=== PATIENT | male | born 1940 | race Native Hawaiian/Other Pacific Islander ===

== ENCOUNTER 2018-01-18 10:19 | Observation (INO) | payer OTHER ==
[2018-01-18 10:19] VITALS: BMI 25.4
[~2018-01-18 10:19] MED LIST: EPOETIN ALFA 4,000 UNIT/ML ML Dialysis SC SCH
[2018-01-18 12:13] LABS: BASO # 0.1 K/uL (0.0-0.2); EOS # 0.6 K/uL (0.0-0.7); HEMOGLOBIN 10.7 g/dL (12.0-18.0); MEAN CORPUSCULAR HGB CONC 34.8 g/dL (33.0-37.0); MONO # 0.7 K/uL (0.0-0.8); WHITE BLOOD COUNT 7.2 K/uL (4.8-10.8)
[2018-01-18 12:23] LABS: BASO % 1.5 % (0.0-2.0); EOS % 7.7 % (0.0-4.0); LYMPH # 1.8 K/uL (1.0-4.3); MEAN CELL VOLUME 94.3 fL (80.0-94.0); MEAN CORPUSCULAR HEMOGLOBIN 32.8 pg (27.0-31.0); MEAN PLATELET VOLUME 8.9 fL (7.2-11.7); MONO % 9.9 % (0.0-10.0); NEUT # 4.1 K/uL (1.8-7.0); NEUT % 55.9 % (50.0-75.0); NRBC % 0.1 % (0.0-2.0); RBC 3.27 Mil/uL (4.40-5.90); RED CELL DISTRIBUTION WIDTH 15.9 % (11.5-14.5)
[2018-01-18 12:24] LABS: PROTHROMBIN TIME 10.8 SECONDS (9.7-12.2)
--- NOTE | 2018-01-18 12:33 | C.PDOC ---
History Of Present Illness 77 year old male, whose PMHx includes CHF and ESRD, presents to the ED for evaluation of shortness of breath and chest pain which developed since last night. Patient was due for dialysis today but was unable to attend secondary to symptoms. Patient denies fever, chills, nausea, and vomiting at this time. Time Seen by Provider: 01/18/18 11:30 Chief Complaint (Nursing): Shortness Of Breath History Per: Patient History/Exam Limitations: no limitations Onset/Duration Of Symptoms: Hrs Current Symptoms Are (Timing): Still Present Current Respiratory Medications: See Home Med List Past Medical History Reviewed: Historical Data, Nursing Documentation, Vital Signs Vital Signs: Last Vital Signs Temp 98.4 F 01/19/18 07:17 Pulse 75 01/19/18 08:54 Resp 20 01/19/18 07:17 BP 128/74 01/19/18 07:17 Pulse Ox 98 01/19/18 08:54 - Medical History PMH: No Chronic Diseases Surgical History: No Surg Hx Family History: States: Unknown Family Hx - Social History Hx Alcohol Use: No Hx Substance Use: No - Immunization History Hx Tetanus Toxoid Vaccination: No Hx Influenza Vaccination: No Hx Pneumococcal Vaccination: No Review Of Systems Cardiovascular: Positive for: Chest Pain Respiratory: Positive for: Shortness of Breath Physical Exam - Physical Exam Appears: Non-toxic, No Acute Distress Skin: Normal Color, Warm, Dry Head: Atraumatic, Normacephalic Eye(s): bilateral: Normal Inspection Oral Mucosa: Moist Neck: Supple Chest: Symmetrical, No Deformity, No Tenderness, Other (dialysis catheter to right anterior chest wall. defibrillator to left anterior chest wall ) Cardiovascular: Rhythm Regular, No Murmur Respiratory: Decreased Breath Sounds (bilaterally ), No Rales, No Rhonchi, No Wheezing Gastrointestinal/Abdominal: Normal Exam, Bowel Sounds, Soft Extremity: Normal ROM, Capillary Refill (less than 2 seconds ) Neurological/Psych: Oriented x3, Normal Speech, Normal Cognition ED Course And Treatment - Laboratory Results Result Diagrams: 01/19/18 08:16 01/19/18 08:09 ECG: Interpreted By Me, Viewed By Me ECG Rhythm: Sinus Rhythm Interpretation Of ECG: Normal Sinus Rhythm at rate 71bpm. LVH. Normal intervals. Normal axis. T wave inversions in V4,V5, and V6. Rate From EC O2 Sat by Pulse Oximetry: 100 (on RA) Pulse Ox Interpretation: Normal Medical Decision Making Medical Decision Making: Assessment: CHF Plan: * bloodwork * CXR * EKG * reassess and disposition Progress: Bloodwork, CXR, EKG ordered and reviewed. Case discussed with patient's PMD, Dr. Clark. Patient will be admitted to [facility] for chest pain and fluid overload. Will consult Dr. Salome Moss Disposition - Disposition Disposition: HOSPITALIZED Disposition Time: 14:15 Condition: FAIR - Clinical Impression Clinical Impression: Chest pain - Scribe Statement The provider has reviewed the documentation as recorded by the Scribe (Alda Barrera) Provider Attestation: All medical record entries made by the Scribe were at my direction and personally dictated by me. I have reviewed the chart and agree that the record accurately reflects my personal performance of the history, physical exam, medical decision making, and the department course for this patient. I have also personally directed, reviewed, and agree with the discharge instructions and disposition.
--- NOTE | 2018-01-18 13:03 | RAD ---
PROCEDURE: CHEST RADIOGRAPH, 1 VIEW HISTORY: Chest pain COMPARISON: 01/15/2018. FINDINGS: The right-sided central venous catheter terminates at the cavoatrial junction. LUNGS: The lungs are clear. PLEURA: No pneumothorax or pleural fluid seen. CARDIOVASCULAR: The heart is normal in size. There is unfolding of the aorta. There is stable position of left-sided AICD. OSSEOUS STRUCTURES: No significant abnormalities. VISUALIZED UPPER ABDOMEN: Normal. OTHER FINDINGS: None. IMPRESSION: No acute findings.
[2018-01-18 13:10] LABS: TROPONIN I 0.028 ng/mL (0.00-0.120)
[2018-01-18 13:39] LABS: ALB/GLOB RATIO 0.9 (1.0-2.1); ALBUMIN 4.6 g/dL (3.5-5.0); CALCIUM 9.7 mg/dl (8.6-10.4)
--- NOTE | 2018-01-18 19:29 | CP.PCM.CON ---
History of Present Illness - History of Present Illness History of Present Illness: pt is seen and examined, full consult is dictated #[id number] seen in hd, had a uf about 1.3 lit Past Patient History - Past Social History Smoking Status: Never Smoked - CARDIAC Other/Comment: heart failure - RENAL Hx Dialysis: Yes Type of Dialysis Access: Rt. ashley cathetr Date of Last Dialysis Treatment: 01/16/18 Hx Renal Failure: Yes - PSYCHIATRIC Hx Substance Use: No - SURGICAL HISTORY Hx Surgeries: Yes Other/Comment: Rt. ashley catheter - ANESTHESIA Hx Anesthesia: No Hx Anesthesia Reactions: No Meds Allergies/Adverse Reactions: Allergies Allergy/AdvReac Type Severity Reaction Status Date / Time No Known Allergies Allergy Verified 01/18/18 10:24 - Medications Medications: Current Medications Epoetin Xavier (Procrit) 4,000 unit IV TTS [place] Stop: 01/30/18 10:01 Paricalcitol (Zemplar) 2 mcg IV TTS [facility] Stop: 01/30/18 10:01 Results - Vital Signs Recent Vital Signs: Last Vital Signs Temp 98.1 F 01/18/18 17:55 Pulse 80 01/18/18 17:55 Resp 16 01/18/18 17:55 BP 111/69 01/18/18 18:40 Pulse Ox 100 01/18/18 17:55 - Labs Result Diagrams: 01/18/18 12:05 01/18/18 12:05 Labs: Laboratory Results - last 24 hr 01/18/18 01/18/18 01/18/18 12:05 12:05 12:05 WBC 7.2 RBC 3.27 L Hgb 10.7 L Hct 30.8 L MCV 94.3 H MCH 32.8 H MCHC 34.8 RDW 15.9 H Plt Count 127 L MPV 8.9 Neut % (Auto) 55.9 Lymph % (Auto) 25.0 Chambers % (Auto) 9.9 Eos % (Auto) 7.7 H Baso % (Auto) 1.5 Neut # (Auto) 4.1 Lymph # (Auto) 1.8 Chambers # (Auto) 0.7 Eos # (Auto) 0.6 Baso # (Auto) 0.1 Differential Comment PT 10.8 INR 1.0 APTT 37 H Sodium 143 Potassium 5.0 Chloride 98 Carbon Dioxide 25 Anion Gap 25 H BUN 41 H Creatinine 9.6 H* Est GFR ( Amer) 6 Est GFR (Non-Af Amer) 5 Random Glucose 87 Calcium 9.7 Magnesium 2.7 H Total Bilirubin 0.9 AST 52 ALT 19 L Alkaline Phosphatase 118 Troponin I 0.0280 NT-Pro-B Natriuret Pep 8140 H Total Protein 9.7 H Albumin 4.6 Globulin 5.0 H Albumin/Globulin Ratio 0.9 L
[2018-01-18] MEDS: EPOETIN ALFA 4,000 UNIT/ML ML Dialysis IV SCH (19:34)
[2018-01-18] MEDS: Paricalcitol 2 mcg/ml Inj IV SCH (19:35)
--- NOTE | 2018-01-19 05:24 | CON ---
DATE: 01/18/2018. REQUESTED BY: Dr. Allen Clark. REASON FOR RENAL CONSULTATION: End-stage renal disease for continuation with hemodialysis. HISTORY OF PRESENT ILLNESS: Mr. Britt is a 77 years old elderly very pleasant [place] male with a past medical history significant for hypertension, diabetes, end-stage renal disease, coronary artery disease status post cardiac cath about 4 months ago started on hemodialysis about 4 months ago through right internal jugular Perm-A-Cath. The patient also underwent AICD placement few weeks ago and now the patient was admitted through the emergency room with chief complaints of chest discomfort since yesterday as per the patient through the [facility]. The patient had chest pain before he went to the bed and was on and off and radiating to the left arm. Denies any nausea or vomiting. Denies any fever, cough. Denies any abdominal pain. Denies any dysuria or frequency. Denies any shortness of breath. PAST MEDICAL HISTORY: Significant for longstanding hypertension, diabetes, hyperlipidemia, coronary artery disease, status post cardiac cath about 6 months ago in [facility]. PAST SURGICAL HISTORY: Status post right internal jugular Perm-A-Cath and also left subclavian AICD placement few weeks ago. ALLERGIES: NO KNOWN DRUG ALLERGIES. SOCIAL HISTORY: No smoking. No alcohol or drugs. PERSONAL HISTORY: and he has a very supportive son and . FAMILY HISTORY: Not significant. CURRENT MEDICATIONS: Include as follows; Crestor 10 mg at bedtime, heparin 4000 units IV push in the catheter three times a week, Nephro-Kike 1 tablet daily, PhosLo 667 mg p.o. t.i.d., Plavix 75 mg p.o. daily, Procrit 4000 units IV three times a week, metoprolol 25 mg p.o. daily, Zemplar 2 mcg three times a week. REVIEW OF SYSTEMS: Significant for chest pain radiating to the left arm on and off. All other review of systems are reviewed and are negative. PHYSICAL EXAMINATION: VITAL SIGNS: Blood pressure 102/60, pulse 88, respirations 16, temperature 97.6, saturation 97%. Height 5 feet and weight is about 158 pounds and his post dialysis weight is about 57.9 kg and post dialysis blood pressure 122/55. GENERAL: Mr. Britt is 77 years old elderly male, moderately built, moderately nourished, not in acute distress. HEENT: Pupils normal, reactive to light and accommodation. Conjunctivae pink. Sclerae anicteric. Tongue is moist and trachea is midline. LUNGS: Symmetric on both sides. Bilateral breath sounds present. Clear to auscultation. CVS: Orland at the fifth intercostal space, midclavicular line. S1 and S2 audible. No murmur, no gallop. ABDOMEN: Normal in appearance, soft, tympanic. No guarding, no rigidity. No hepatosplenomegaly. CERTIFIED TEACHER ASSISTANT: The patient is alert, awake and oriented x3. Nonfocal neuro examination. Cranial nerves II through XII grossly intact. Sensory and motor system is within normal limits. EXTREMITIES: No cyanosis, no clubbing, no edema. LABORATORY DATA: Include as follows as of 01/18/2018, WBC 7.2, hemoglobin 10.7, hematocrit is 30.8, platelets 127. PT 10.8 and PTT 37. Sodium 143, potassium is 5, chloride 98, CO 25, BUN 41, creatinine 9.6 and glucose 87, calcium 9.7, magnesium 2.7. Total bili 0.9, AST 52, ALT 19, alkaline phosphatase 118, troponin 0.028 and proBNP 8140, total protein 9.7, albumin is 4.6. Chest x-ray as of 01/18/2018, no acute findings. EKG as of 01/18/2018, heart rate is 71 beats per minute and NJ interval 170, QRS 106 milliseconds, QT is [address]-T changes with T-inversion in v5 and v6 and L2, L3, cannot rule out inferior infarct age undetermined. ASSESSMENT: In summary, Mr. Britt is a 77 years old elderly [place] male with a history of hypertension, diabetes, end-stage renal disease, coronary artery disease status post cardiac cath unable to place any stents, end-stage renal disease on hemodialysis three times a week Monday, , Monday since July 2017 status post automatic implantable cardioverter-defibrillator placement about few weeks ago with chest discomfort and troponin x1 was negative with elevated proBNP. 1. End-stage renal disease. Continue hemodialysis three times a week Monday, , Monday. 2. Cardiomyopathy. Status post automatic implantable cardioverter-defibrillator placement. 3. Hypertension. Blood pressure is stable at this time. PLAN: Continue hemodialysis three times a week and follow up with Dr. Clark for further workup with Cardiology and also consider Vascular Surgery consult with Dr. Son after AV fistula placement. We will follow with you. The patient was seen during hemodialysis and ultrafiltration goal is about 1-1.3 liters. Thank you for allowing me to participate in your patient's care. Janet Foster MD [facility]
[2018-01-19 08:26] LABS: BASO # 0.1 K/uL (0.0-0.2); BASO % 1.3 % (0.0-2.0); EOS # 0.5 K/uL (0.0-0.7); EOS % 7.7 % (0.0-4.0); HEMOGLOBIN 10.6 g/dL (12.0-18.0); LYMPH # 2.4 K/uL (1.0-4.3); LYMPH % 36.1 % (20.0-40.0); MEAN CORPUSCULAR HEMOGLOBIN 32.5 pg (27.0-31.0); MEAN CORPUSCULAR HGB CONC 34.6 g/dL (33.0-37.0); MEAN PLATELET VOLUME 8.8 fL (7.2-11.7); MONO # 0.5 K/uL (0.0-0.8); MONO % 7.6 % (0.0-10.0); NEUT # 3.1 K/uL (1.8-7.0); NEUT % 47.3 % (50.0-75.0); NRBC % 0.1 % (0.0-2.0); RBC 3.26 Mil/uL (4.40-5.90); RED CELL DISTRIBUTION WIDTH 15.9 % (11.5-14.5); WHITE BLOOD COUNT 6.5 K/uL (4.8-10.8)
[2018-01-19 08:27] LABS: PROTHROMBIN TIME 11.6 SECONDS (9.7-12.2)
[2018-01-19 08:40] LABS: ALB/GLOB RATIO 0.9 (1.0-2.1); CALCIUM 8.7 mg/dl (8.6-10.4)
--- NOTE | 2018-01-19 08:50 | CP.PCM.HP ---
History of Present Illness - History of Present Illness History of Present Illness: CC: sob HPI: 77 year old male, whose PMHx includes CHF and ESRD, presents to the ED for evaluation of shortness of breath and chest pain which developed since last night. Patient was due for dialysis today but was unable to attend secondary to symptoms. Patient denies fever, chills, nausea, and vomiting at this time. Past Patient History - Past Social History Smoking Status: Never Smoked - CARDIAC Other/Comment: heart failure - RENAL Hx Dialysis: Yes Type of Dialysis Access: Rt. ahsley cathetr Date of Last Dialysis Treatment: 01/16/18 Hx Renal Failure: Yes - PSYCHIATRIC Hx Substance Use: No - SURGICAL HISTORY Hx Surgeries: Yes Other/Comment: Rt. ashley catheter - ANESTHESIA Hx Anesthesia: No Hx Anesthesia Reactions: No Meds Allergies/Adverse Reactions: Allergies Allergy/AdvReac Type Severity Reaction Status Date / Time No Known Allergies Allergy Verified 01/18/18 10:24 Results - Vital Signs Recent Vital Signs: Last Vital Signs Temp 98.4 F 01/19/18 07:17 Pulse 70 01/19/18 07:17 Resp 20 01/19/18 07:17 BP 128/74 01/19/18 07:17 Pulse Ox 98 01/19/18 07:17 - Labs Result Diagrams: 01/19/18 08:16 01/19/18 08:09 Labs: Laboratory Results - last 24 hr 01/18/18 01/18/18 01/18/18 12:05 12:05 12:05 WBC 7.2 RBC 3.27 L Hgb 10.7 L Hct 30.8 L MCV 94.3 H MCH 32.8 H MCHC 34.8 RDW 15.9 H Plt Count 127 L MPV 8.9 Neut % (Auto) 55.9 Lymph % (Auto) 25.0 Colbert % (Auto) 9.9 Eos % (Auto) 7.7 H Baso % (Auto) 1.5 Neut # (Auto) 4.1 Lymph # (Auto) 1.8 Colbert # (Auto) 0.7 Eos # (Auto) 0.6 Baso # (Auto) 0.1 Differential Comment PT 10.8 INR 1.0 APTT 37 H Sodium 143 Potassium 5.0 Chloride 98 Carbon Dioxide 25 Anion Gap 25 H BUN 41 H Creatinine 9.6 H* Est GFR ( Amer) 6 Est GFR (Non-Af Amer) 5 Random Glucose 87 Calcium 9.7 Magnesium 2.7 H Total Bilirubin 0.9 AST 52 ALT 19 L Alkaline Phosphatase 118 Troponin I 0.0280 NT-Pro-B Natriuret Pep 8140 H Total Protein 9.7 H Albumin 4.6 Globulin 5.0 H Albumin/Globulin Ratio 0.9 L 01/19/18 01/19/18 01/19/18 08:09 08:09 08:16 WBC 6.5 RBC 3.26 L Hgb 10.6 L Hct 30.7 L MCV 94.0 MCH 32.5 H MCHC 34.6 RDW 15.9 H Plt Count 83 L D MPV 8.8 Neut % (Auto) 47.3 L Lymph % (Auto) 36.1 Colbert % (Auto) 7.6 Eos % (Auto) 7.7 H Baso % (Auto) 1.3 Neut # (Auto) 3.1 Lymph # (Auto) 2.4 Colbert # (Auto) 0.5 Eos # (Auto) 0.5 Baso # (Auto) 0.1 Differential Comment PT 11.6 INR 1.0 APTT 37 H Sodium 144 Potassium 4.1 Chloride 97 L Carbon Dioxide 32 H Anion Gap 19 BUN 18 Creatinine 5.2 H Est GFR ( Amer) 13 Est GFR (Non-Af Amer) 11 Random Glucose 92 Calcium 8.7 Magnesium Total Bilirubin 0.7 AST 41 ALT 29 Alkaline Phosphatase 106 Troponin I NT-Pro-B Natriuret Pep Total Protein 8.3 Albumin 4.0 Globulin 4.3 H Albumin/Globulin Ratio 0.9 L Assessment & Plan - Assessment and Plan (Free Text) Assessment: CHF ESRD HTN T2DM Plan: Pt may go for AV fistula implant with acceptable risk Clinically NOT in CHF post dialysis.
[2018-01-19] MEDS ORDERED: HEPARIN-NS 5,000 UNITS/500 ML 5,000 UNIT/500 ML BAG IV ONE (09:08)
[2018-01-19] MEDS ORDERED: Lidocaine Hydrochloride 10 ML INJ ONE (09:08)
[2018-01-19] MEDS: Multivitamin Vitamin B Complex (Nephro-Vite) Tab PO SCH (09:25)
[2018-01-19] MEDS: Metoprolol Succinate 25 mg XL Tab PO SCH (09:25)
[2018-01-19] MEDS ORDERED: ceFAZolin 1 gm in NS 1 GM/100 ML BAG IVPB ONE (12:11)
[2018-01-19] MEDS ORDERED: HYDROmorphone 0.5 mg/0.5 ml ISec IVP PRN (14:02)
--- NOTE | 2018-01-19 14:04 | PCM.SURG1 ---
Surgeon's Initial Post Op Note - Surgeon's Notes Surgeon: Dr. 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
--- NOTE | 2018-01-19 20:03 | CP.PCM.PN ---
Subjective - Date & Time of Evaluation Date of Evaluation: 01/19/18 Time of Evaluation: 20:03 - Subjective Subjective: pt is seen and examined, follow up consult is dictated #[id number] for hd in am Objective - Vital Signs/Intake and Output Vital Signs (last 24 hours): Temp Pulse Resp BP Pulse Ox 97.5 F L 61 20 101/56 L 98 01/19/18 16:49 01/19/18 16:49 01/19/18 16:49 01/19/18 16:49 01/19/18 16:49 Intake and Output: 01/19/18 01/20/18 18:59 06:59 Intake Total 257 Balance 257 - Medications Medications: Current Medications Acetaminophen (Tylenol 325mg Tab) 650 mg PO Q6 PRN PRN Reason: Pain, moderate (4-7) Calcium Acetate (Phoslo) 667 mg PO TID [facility] Last Admin: 01/19/18 17:18 Dose: 667 mg Clopidogrel Bisulfate (Plavix) 75 mg PO DAILY [facility] Last Admin: 01/19/18 09:25 Dose: 75 mg Epoetin Xavier (Procrit) 4,000 unit IV TTS [facility] Stop: 01/30/18 10:01 Last Admin: 01/18/18 19:34 Dose: 4,000 unit Heparin Sodium (Porcine) (Heparin) 4,000 units IVP TTS [facility] Stop: 01/23/18 10:01 Last Admin: 01/18/18 20:54 Dose: 4,000 units Metoprolol Succinate (Toprol Xl) 25 mg PO DAILY [facility] Last Admin: 01/19/18 09:25 Dose: 25 mg Paricalcitol (Zemplar) 2 mcg IV TTS [facility] Stop: 01/30/18 10:01 Last Admin: 01/18/18 19:35 Dose: 2 mcg Rosuvastatin Calcium (Crestor) 10 mg PO HS [facility] Last Admin: 01/18/18 21:49 Dose: 10 mg Vitamin B Complex/Vit C/Folic Acid (Nephro-Kike) 1 tab PO DAILY [facility] Last Admin: 01/19/18 09:25 Dose: 1 tab - Labs Labs: 01/19/18 08:16 01/19/18 08:09 PT 11.6 SECONDS (9.7-12.2) 01/19/18 08:09 INR 1.0 01/19/18 08:09 APTT 37 SECONDS (21-34) H 01/19/18 08:09
--- NOTE | 2018-01-19 22:01 | CARD ---
APPROVED REPORT EKG Measurement Heart [id number] <Conclusion> Normal sinus rhythm Left ventricular hypertrophy with repolarization abnormality consider lateral ischemia Cannot rule out Inferior infarct, age undetermined Abnormal ECG
--- NOTE | 2018-01-20 03:44 | PN ---
DATE: 01/19/2018 FOLLOWUP RENAL CONSULTATION LOCATION: The patient is located in room 660, bed B. HISTORY OF PRESENT ILLNESS: Mr. Britt is a 77 years old elderly [place]ian male with a history of longstanding hypertension, diabetes, coronary artery disease, hyperlipidemia, end-stage renal disease, cardiomyopathy, status post cardiac cath, and unable to place stents in the past, status post pacemaker placement who was admitted with chest discomfort yesterday, and the patient also underwent AV fistula placement this morning with a good bruit in the left upper extremity, and denies any complaints. No chest pain, no palpitation today. No nausea, vomiting, diarrhea. PHYSICAL EXAMINATION: VITAL SIGNS: As follows, blood pressure 101/56, pulse 61, respirations 20, temperature 97.5, saturation 98%. Height 5 feet and weight is 127 pounds. GENERAL: Mr. Britt is a 77 years old elderly [place]ian male, moderately built, moderately nourished, not in distress. HEENT: Pupils are normal and reactive to light and accommodation. Conjunctivae pink. Sclerae anicteric. Tongue is moist. Trachea is midline. LUNGS: Symmetric on both sides. Bilateral breath sounds present. Clear to auscultation. CVS: Goodman at the fifth intercostal space, midclavicular line. S1, S2 audible. No murmur or gallop. ABDOMEN: Normal in appearance, soft, tympanic. No guarding. No rigidity. No hepatosplenomegaly. VETERANS' COORDINATOR: The patient is alert, awake, and oriented x3. Nonfocal neuro examination. Cranial nerves II through XII grossly intact. Sensory and motor system is within normal limits. EXTREMITIES: No cyanosis, no clubbing, no edema. The patient has a good bruit over the left AV fistula. MEDICATIONS: His current medications include as follows, Crestor 10 mg at bedtime, heparin 4000 units IV push in PermCath post dialysis, Nephro-Kike 1 tablet daily, PhosLo 667 mg p.o. t.i.d., Plavix 75 mg daily, Procrit 4000 units three times a week, metoprolol 25 mg p.o. daily, Tylenol, and Zemplar. LABORATORY DATA: Include as follows, as of 01/19/2018, WBC 6.5, hemoglobin 10.6, hematocrit is 30.7, platelets 83, PT is 11.6, PTT 37. Sodium 144, potassium 4.1, chloride 37, CO2 of 32, BUN 18, creatinine 5.2, glucose is 92, calcium 8.7. Total bili 0.7, AST 41, ALT 29, alkaline phosphatase of 106, total protein 8.3, and albumin is 4. Hepatitis B surface antigen is negative. IMPRESSION: In summary, Mr. Britt is a 77 years old elderly male with hypertension, diabetes, hyperlipidemia, coronary artery disease, status post pacemaker, AICD placement, end-stage renal disease, on hemodialysis three times a week, Monday, , and Monday. 1. End-stage renal disease. Continue hemodialysis three times a week Monday, , Monday. 2. Status post AV fistula placement with a good bruit. Continue to monitor. 3. Hypertension. 4. Cardiomyopathy. 5. Coronary artery disease. We will schedule for hemodialysis in a.m. if the patient is in the hospital tomorrow. We will follow with you. Thank you for allowing me to participate in your patient's care. Janet Foster MD
--- NOTE | 2018-01-20 06:38 | CP.PCM.PN ---
Subjective - Date & Time of Evaluation Date of Evaluation: 01/20/18 Time of Evaluation: 06:35 - Subjective Subjective: Vascular Surgery - Dr. Son Pt S&E. Overnight pt had some saturation of the dressing. This morning was taken down and clean dry drssing applied. He denies any complaints. No pain in the hand, denies any pain at the surgical site. No fevers, Chills, SOB , Chest pain. Objective - Vital Signs/Intake and Output Vital Signs (last 24 hours): Temp Pulse Resp BP Pulse Ox 97.5 F L 72 20 130/63 98 01/20/18 04:00 01/20/18 04:02 01/20/18 04:00 01/20/18 04:00 01/20/18 04:00 Intake and Output: 01/19/18 01/20/18 18:59 06:59 Intake Total 257 Balance 257 - Medications Medications: Current Medications Acetaminophen (Tylenol 325mg Tab) 650 mg PO Q6 PRN PRN Reason: Pain, moderate (4-7) Calcium Acetate (Phoslo) 667 mg PO TID [facility] Last Admin: 01/19/18 17:18 Dose: 667 mg Clopidogrel Bisulfate (Plavix) 75 mg PO DAILY [facility] Last Admin: 01/19/18 09:25 Dose: 75 mg Epoetin Xavier (Procrit) 4,000 unit IV TTS [facility] Stop: 01/30/18 10:01 Last Admin: 01/18/18 19:34 Dose: 4,000 unit Heparin Sodium (Porcine) (Heparin) 4,000 units IVP TTS [facility] Stop: 01/23/18 10:01 Last Admin: 01/18/18 20:54 Dose: 4,000 units Metoprolol Succinate (Toprol Xl) 25 mg PO DAILY [facility] Last Admin: 01/19/18 09:25 Dose: 25 mg Paricalcitol (Zemplar) 2 mcg IV TTS [facility] Stop: 01/30/18 10:01 Last Admin: 01/18/18 19:35 Dose: 2 mcg Rosuvastatin Calcium (Crestor) 10 mg PO HS [facility] Last Admin: 01/19/18 21:59 Dose: 10 mg Vitamin B Complex/Vit C/Folic Acid (Nephro-Kike) 1 tab PO DAILY [facility] Last Admin: 01/19/18 09:25 Dose: 1 tab - Labs Labs: 01/19/18 08:16 01/19/18 08:09 PT 11.6 SECONDS (9.7-12.2) 01/19/18 08:09 INR 1.0 01/19/18 08:09 APTT 37 SECONDS (21-34) H 01/19/18 08:09 - Constitutional Appears: No Acute Distress - Head Exam Head Exam: ATRAUMATIC, NORMAL INSPECTION, NORMOCEPHALIC - Respiratory Exam Respiratory Exam: NORMAL BREATHING PATTERN. absent: Respiratory Distress - Extremities Exam Additional comments: LUE AVF with palpable thrill, palpable pulses in wrist, mild saturation of the dressing which was changed - Neurological Exam Neurological Exam: Alert, Oriented x3 - Psychiatric Exam Psychiatric exam: Normal Affect, Normal Mood - Skin Skin Exam: Dry, Intact Assessment and Plan - Assessment and Plan (Free Text) Assessment: 77 yo M s/p Brachio-brachial AVF of SIMRANE, POD 1 -Continue HD via the permacath -AVF may be used in approx 4-6 weeks once cleared by Dr. Son -No further surgical intervention -Continue care as per primary DW Dr Son
[2018-01-20] MEDS: Multivitamin Vitamin B Complex (Nephro-Vite) Tab PO SCH (12:09)
[2018-01-20] MEDS: Metoprolol Succinate 25 mg XL Tab PO SCH (12:09)
--- NOTE | 2018-01-20 14:10 | CP.PCM.PN ---
Subjective - Date & Time of Evaluation Date of Evaluation: 01/20/18 Time of Evaluation: 14:09 - Subjective Subjective: pt is seen and examined during hd, slight oozing from avf follow up consult is dictated #[id number] consider hematology consult check heprain induced ab Objective - Vital Signs/Intake and Output Vital Signs (last 24 hours): Temp Pulse Resp BP Pulse Ox 98.2 F 73 20 118/62 97 01/20/18 07:15 01/20/18 07:15 01/20/18 07:15 01/20/18 07:15 01/20/18 07:15 - Medications Medications: Current Medications Acetaminophen (Tylenol 325mg Tab) 650 mg PO Q6 PRN PRN Reason: Pain, moderate (4-7) Calcium Acetate (Phoslo) 667 mg PO TID [facility] Last Admin: 01/20/18 12:08 Dose: 667 mg Clopidogrel Bisulfate (Plavix) 75 mg PO DAILY [facility] Last Admin: 01/20/18 12:11 Dose: 75 mg Epoetin Xavier (Procrit) 4,000 unit IV TTS [facility] Stop: 01/30/18 10:01 Last Admin: 01/18/18 19:34 Dose: 4,000 unit Heparin Sodium (Porcine) (Heparin) 4,000 units IVP TTS [facility] Stop: 01/23/18 10:01 Last Admin: 01/18/18 20:54 Dose: 4,000 units Metoprolol Succinate (Toprol Xl) 25 mg PO DAILY [facility] Last Admin: 01/20/18 12:09 Dose: Not Given Paricalcitol (Zemplar) 2 mcg IV TTS [facility] Stop: 01/30/18 10:01 Last Admin: 01/18/18 19:35 Dose: 2 mcg Rosuvastatin Calcium (Crestor) 10 mg PO HS [facility] Last Admin: 01/19/18 21:59 Dose: 10 mg Vitamin B Complex/Vit C/Folic Acid (Nephro-Kike) 1 tab PO DAILY [facility] Last Admin: 01/20/18 12:09 Dose: 1 tab - Labs Labs: 01/19/18 08:16 01/19/18 08:09 PT 11.6 SECONDS (9.7-12.2) 01/19/18 08:09 INR 1.0 01/19/18 08:09 APTT 37 SECONDS (21-34) H 01/19/18 08:09
[2018-01-20 14:48] LABS: HEMOGLOBIN 9.2 g/dL (12.0-18.0); MEAN CELL VOLUME 93.8 fL (80.0-94.0); MEAN CORPUSCULAR HEMOGLOBIN 32.6 pg (27.0-31.0); MEAN CORPUSCULAR HGB CONC 34.8 g/dL (33.0-37.0); MEAN PLATELET VOLUME 8.8 fL (7.2-11.7); RBC 2.82 Mil/uL (4.40-5.90); RED CELL DISTRIBUTION WIDTH 15.6 % (11.5-14.5)
[2018-01-20] MEDS: Paricalcitol 2 mcg/ml Inj IV SCH (16:21)
[2018-01-20] MEDS: EPOETIN ALFA 4,000 UNIT/ML ML Dialysis IV SCH (16:22)
--- NOTE | 2018-01-21 03:15 | PN ---
DATE: 01/20/2018 FOLLOWUP RENAL CONSULTATION The patient is located in room 660, bed B. REQUESTED BY: Allen Clark MD REASON FOR FOLLOWUP: End-stage renal disease, continuation of hemodialysis, status post left upper extremity AV fistula with slight oozing from the AV fistula. SUBJECTIVE: Mr. Britt is a 77-year-old elderly Brazilian male with a history of longstanding hypertension, diabetes, coronary artery disease, hyperlipidemia, cardiomyopathy, end-stage renal disease, on hemodialysis 3 times a week on Monday, , Monday for the last 6 months ago, who was admitted with chest discomfort. Subsequently, the patient was seen by Vascular Surgery and scheduled for the AV fistula placement, waiting for the last 6 months. The patient denies any complaints. Found to have a slight oozing in the AV fistula site. The patient was evaluated by the Vascular Surgery Resident this morning. The patient is not in distress. The patient was seen and examined during dialysis. UF goal is about 1.3 liters. Denies any chest pain or palpitations. Denies any fever or cough. No abdominal pain. No nausea, vomiting, or diarrhea. PHYSICAL EXAMINATION: VITAL SIGNS: As follows: Blood pressure during dialysis 110/59, pulse 82, respirations 16, temperature 97.9. Height 5 feet, weight is 120 pounds, saturation 99%. GENERAL: Mr. Britt is a 77-year-old elderly Brazilian male, moderately built, moderately nourished, not in distress. HEENT: Pupils normal and reactive to light and accommodation. Conjunctivae pink. Sclerae anicteric. Tongue is moist. NECK: Trachea is midline. LUNGS: Symmetric on both sides. Bilateral breath sounds present. Clear to auscultation. CVS: [place] at the fifth intercostal space, midclavicular line. S1, S2 audible. No murmur or gallop. The patient has a paced AICD in the left subclavian region. ABDOMEN: Normal in appearance, soft, tympanic. No guarding. No rigidity. No hepatosplenomegaly. AUTO PARTS CLERK: The patient is alert, awake, and oriented x3. Nonfocal neuro examination. Cranial nerves II through XII grossly intact. Sensory and motor system are within normal limits. EXTREMITIES: No cyanosis, no clubbing, no edema. The patient has a slight oozing from the left AV fistula. CURRENT MEDICATIONS: Include as follows: Crestor 10 mg at bedtime, heparin 4000 units in the PermCath post dialysis three times a week, Nephro-Kike one tablet daily, calcium acetate 600 mg p.o. t.i.d., Plavix 75 mg daily, Procrit 4000 units three times a week, metoprolol 25 mg p.o. daily, Tylenol, and Zemplar 2 mcg three times a week. LABORATORY DATA: Include as follows: As of 01/20/2018, WBC is 6, hemoglobin 9.2, hematocrit is 26.5, platelets 66. ASSESSMENT AND PLAN: In summary, Mr. Britt is a 77-year-old elderly Brazilian male with hypertension, diabetes, coronary artery disease, cardiomyopathy, status post automated implantable cardioverter-defibrillator placement, end-stage renal disease, on hemodialysis three times a week, Monday, , Monday, status post arteriovenous fistula placement on 01/19/2018, with slight oozing from the arteriovenous fistula, now with decreasing platelets from 127 to 66 today. 1. End-stage renal disease. Continue hemodialysis three times a week Monday, , Monday, and ultrafiltration goal is about 1 liter today. 2. Anemia secondary to recent surgery. 3. Thrombocytopenia, rule out heparin-induced thrombocytopenia. 4. Cardiomyopathy. 5. Hypertension. Blood pressure is stable. Continue all his current medications. We will also check heparin-induced antibodies and also consider Hematology consult for evaluation of thrombocytopenia, rule out heparin-induced thrombocytopenia. 6. Follow up with Surgery for possible bleeding from the arteriovenous fistula site. We will follow with you. Thank you for allowing me to participate in your patient's care. Janet Foster MD
[2018-01-21 08:15] LABS: HEMOGLOBIN 8.3 g/dL (12.0-18.0); MEAN CELL VOLUME 94.4 fL (80.0-94.0); MEAN CORPUSCULAR HEMOGLOBIN 32.6 pg (27.0-31.0); MEAN CORPUSCULAR HGB CONC 34.5 g/dL (33.0-37.0); MEAN PLATELET VOLUME 8.6 fL (7.2-11.7); RBC 2.54 Mil/uL (4.40-5.90); RED CELL DISTRIBUTION WIDTH 15.5 % (11.5-14.5); WHITE BLOOD COUNT 6.2 K/uL (4.8-10.8)
[2018-01-21] MEDS: Metoprolol Succinate 25 mg XL Tab PO SCH (10:38)
[2018-01-21] MEDS: Multivitamin Vitamin B Complex (Nephro-Vite) Tab PO SCH (10:39)
--- NOTE | 2018-01-21 14:21 | CP.PCM.PN ---
Subjective - Date & Time of Evaluation Date of Evaluation: 01/21/18 Time of Evaluation: 14:21 - Subjective Subjective: pt is seen and examined, follow up consult is dictated #[id number] Objective - Vital Signs/Intake and Output Vital Signs (last 24 hours): Temp Pulse Resp BP Pulse Ox 98.3 F 82 20 101/61 98 01/21/18 09:32 01/21/18 09:32 01/21/18 09:32 01/21/18 09:32 01/21/18 09:32 Intake and Output: 01/21/18 01/21/18 06:59 18:59 Intake Total 150 Output Total 100 Balance 50 - Medications Medications: Current Medications Acetaminophen (Tylenol 325mg Tab) 650 mg PO Q6 PRN PRN Reason: Pain, moderate (4-7) Calcium Acetate (Phoslo) 667 mg PO TID [facility] Last Admin: 01/21/18 13:50 Dose: 667 mg Clopidogrel Bisulfate (Plavix) 75 mg PO DAILY [facility] Last Admin: 01/21/18 10:38 Dose: 75 mg Epoetin Xavier (Procrit) 4,000 unit IV TTS [facility] Stop: 01/30/18 10:01 Last Admin: 01/20/18 16:22 Dose: 4,000 unit Heparin Sodium (Porcine) (Heparin) 4,000 units IVP TTS [facility] Stop: 01/23/18 10:01 Last Admin: 01/20/18 16:23 Dose: Not Given Metoprolol Succinate (Toprol Xl) 25 mg PO DAILY [facility] Last Admin: 01/21/18 10:38 Dose: 25 mg Paricalcitol (Zemplar) 2 mcg IV TTS [facility] Stop: 01/30/18 10:01 Last Admin: 01/20/18 16:21 Dose: 2 mcg Rosuvastatin Calcium (Crestor) 10 mg PO HS [facility] Last Admin: 01/20/18 21:30 Dose: 10 mg Vitamin B Complex/Vit C/Folic Acid (Nephro-Kike) 1 tab PO DAILY [facility] Last Admin: 01/21/18 10:39 Dose: 1 tab - Labs Labs: 01/21/18 08:04 01/19/18 08:09 PT 11.6 SECONDS (9.7-12.2) 01/19/18 08:09 INR 1.0 01/19/18 08:09 APTT 37 SECONDS (21-34) H 01/19/18 08:09
--- NOTE | 2018-01-21 21:10 | CP.PCM.CON ---
History of Present Illness - History of Present Illness History of Present Illness: 77 year old male with a history of CAD, ESRD on HD, HL, admitted with shortness of breath and chest pain after missed dialysis session, s/p AV fisutla, with anemia, thrombocytopenia and concern for HIT. The patient denies blood problems in the past. He denies abnormal clotting but notes to some bleeding after his AV fistula surgery which has now resolved. Review of his medical records shows he was admitted with a platelet count of 127,000 which nadired at 66,000 yesterday. He did receive heparin on 01/18. Past medical history: CAD, ESRD on HD, HL Past surgical history: AV fistula Family history: Denies hematologic and oncologic problems Social history: Denies tobacco, alcohol, and illicit drug use. Allergies: NKA Review of systems: All remaining review of systems including HEENT, cardiovascular, respiratory, gastrointestinal, genitourinary, musculoskeletal, dermatologic, neurologic, and psychiatric are negative unless mentioned in the HPI. Past Patient History - Past Social History Smoking Status: Never Smoked - CARDIAC Other/Comment: heart failure - RENAL Hx Dialysis: Yes Type of Dialysis Access: Rt. ashley cathetr Date of Last Dialysis Treatment: 01/16/18 Hx Renal Failure: Yes - PSYCHIATRIC Hx Substance Use: No - SURGICAL HISTORY Hx Surgeries: Yes Other/Comment: Rt. ashley catheter - ANESTHESIA Hx Anesthesia: No Hx Anesthesia Reactions: No Meds Allergies/Adverse Reactions: Allergies Allergy/AdvReac Type Severity Reaction Status Date / Time No Known Allergies Allergy Verified 01/18/18 10:24 - Medications Medications: Current Medications Acetaminophen (Tylenol 325mg Tab) 650 mg PO Q6 PRN PRN Reason: Pain, moderate (4-7) Calcium Acetate (Phoslo) 667 mg PO TID [facility] Last Admin: 01/21/18 18:24 Dose: 667 mg Clopidogrel Bisulfate (Plavix) 75 mg PO DAILY [facility] Last Admin: 01/21/18 10:38 Dose: 75 mg Epoetin Xavier (Procrit) 4,000 unit IV TTS [facility] Stop: 01/30/18 10:01 Last Admin: 01/20/18 16:22 Dose: 4,000 unit Metoprolol Succinate (Toprol Xl) 25 mg PO DAILY [facility] Last Admin: 01/21/18 10:38 Dose: 25 mg Paricalcitol (Zemplar) 2 mcg IV TTS [facility] Stop: 01/30/18 10:01 Last Admin: 01/20/18 16:21 Dose: 2 mcg Rosuvastatin Calcium (Crestor) 10 mg PO HS [facility] Last Admin: 01/20/18 21:30 Dose: 10 mg Vitamin B Complex/Vit C/Folic Acid (Nephro-Kike) 1 tab PO DAILY [facility] Last Admin: 01/21/18 10:39 Dose: 1 tab Physical Exam - Head Exam Head Exam: ATRAUMATIC - Eye Exam Eye Exam: Normal appearance - ENT Exam ENT Exam: Mucous Membranes Dry - Respiratory Exam Respiratory Exam: NORMAL BREATHING PATTERN - Cardiovascular Exam Cardiovascular Exam: +S1, +S2 - GI/Abdominal Exam GI & Abdominal Exam: Normal Bowel Sounds - Extremities Exam Extremities exam: Positive for: normal inspection - Neurological Exam Neurological exam: Oriented x3 - Psychiatric Exam Psychiatric exam: Normal Affect, Normal Mood - Skin Skin Exam: Warm Results - Vital Signs Recent Vital Signs: Last Vital Signs Temp 98.4 F 01/21/18 15:45 Pulse 83 01/21/18 16:00 Resp 18 01/21/18 15:45 BP 126/73 01/21/18 15:45 Pulse Ox 98 01/21/18 15:45 - Labs Result Diagrams: 01/21/18 08:04 01/19/18 08:09 Labs: Laboratory Results - last 24 hr 01/21/18 08:04 WBC 6.2 RBC 2.54 L Hgb 8.3 L Hct 24.0 L MCV 94.4 H MCH 32.6 H MCHC 34.5 RDW 15.5 H Plt Count 74 L MPV 8.6 Assessment & Plan (1) Thrombocytopenia Assessment and Plan: rule out HIT; heparin Ab and serotonin release assay sent hold heparin/lovenox until above resulted will check HIV and hepatitis panel Status: Acute (2) Anemia Assessment and Plan: will check retic count, b12, folate, ferritin to further characterize element of anemia of CKD; KELLY per renal surgical blood loss Status: Acute (3) Elevated serum globulin level Assessment and Plan: will rule out monoclonal protein and hepatitis Thank you for this interesting consult. Status: Acute
--- NOTE | 2018-01-21 21:28 | CP.PCM.PN ---
Subjective - Date & Time of Evaluation Date of Evaluation: 01/20/18 Time of Evaluation: 09:05 - Subjective Subjective: Pt has some dressing saturation Dressings change Objective - Vital Signs/Intake and Output Vital Signs (last 24 hours): Temp Pulse Resp BP Pulse Ox 98.4 F 83 18 126/73 98 01/21/18 15:45 01/21/18 16:00 01/21/18 15:45 01/21/18 15:45 01/21/18 15:45 Intake and Output: 01/21/18 01/22/18 18:59 06:59 Output Total 50 Balance -50 - Medications Medications: Current Medications Acetaminophen (Tylenol 325mg Tab) 650 mg PO Q6 PRN PRN Reason: Pain, moderate (4-7) Calcium Acetate (Phoslo) 667 mg PO TID [facility] Last Admin: 01/21/18 18:24 Dose: 667 mg Clopidogrel Bisulfate (Plavix) 75 mg PO DAILY [facility] Last Admin: 01/21/18 10:38 Dose: 75 mg Epoetin Xavier (Procrit) 4,000 unit IV TTS [facility] Stop: 01/30/18 10:01 Last Admin: 01/20/18 16:22 Dose: 4,000 unit Metoprolol Succinate (Toprol Xl) 25 mg PO DAILY [facility] Last Admin: 01/21/18 10:38 Dose: 25 mg Paricalcitol (Zemplar) 2 mcg IV TTS [facility] Stop: 01/30/18 10:01 Last Admin: 01/20/18 16:21 Dose: 2 mcg Rosuvastatin Calcium (Crestor) 10 mg PO [facility] Last Admin: 01/20/18 21:30 Dose: 10 mg Vitamin B Complex/Vit C/Folic Acid (Nephro-Kike) 1 tab PO DAILY [facility] Last Admin: 01/21/18 10:39 Dose: 1 tab - Labs Labs: 01/21/18 08:04 01/19/18 08:09 PT 11.6 SECONDS (9.7-12.2) 01/19/18 08:09 INR 1.0 01/19/18 08:09 APTT 37 SECONDS (21-34) H 01/19/18 08:09 - Constitutional Appears: Well - Eye Exam Eye Exam: absent: Scleral icterus - Respiratory Exam Respiratory Exam: Respiratory Distress - Cardiovascular Exam Cardiovascular Exam: REGULAR RHYTHM - GI/Abdominal Exam GI & Abdominal Exam: Normal Bowel Sounds - Extremities Exam Extremities Exam: absent: Joint Swelling, Pedal Edema Additional comments: pain at surgical site Assessment and Plan - Assessment and Plan (Free Text) Assessment: CHF, compensated s/p AV graft fistula CAD Plan: Cont to meds Monitor for bleeding Renal follow up
--- NOTE | 2018-01-21 21:34 | CP.PCM.PN ---
Subjective - Date & Time of Evaluation Date of Evaluation: 01/21/18 Time of Evaluation: 16:30 - Subjective Subjective: no further bleeding no diarrhea Objective - Vital Signs/Intake and Output Vital Signs (last 24 hours): Temp Pulse Resp BP Pulse Ox 98.4 F 83 18 126/73 98 01/21/18 15:45 01/21/18 16:00 01/21/18 15:45 01/21/18 15:45 01/21/18 15:45 Intake and Output: 01/21/18 01/22/18 18:59 06:59 Output Total 50 Balance -50 - Medications Medications: Current Medications Acetaminophen (Tylenol 325mg Tab) 650 mg PO Q6 PRN PRN Reason: Pain, moderate (4-7) Calcium Acetate (Phoslo) 667 mg PO TID [facility] Last Admin: 01/21/18 18:24 Dose: 667 mg Clopidogrel Bisulfate (Plavix) 75 mg PO DAILY [facility] Last Admin: 01/21/18 10:38 Dose: 75 mg Epoetin Xavier (Procrit) 4,000 unit IV TTS [facility] Stop: 01/30/18 10:01 Last Admin: 01/20/18 16:22 Dose: 4,000 unit Metoprolol Succinate (Toprol Xl) 25 mg PO DAILY [facility] Last Admin: 01/21/18 10:38 Dose: 25 mg Paricalcitol (Zemplar) 2 mcg IV TTS [facility] Stop: 01/30/18 10:01 Last Admin: 01/20/18 16:21 Dose: 2 mcg Rosuvastatin Calcium (Crestor) 10 mg PO HS [facility] Last Admin: 01/20/18 21:30 Dose: 10 mg Vitamin B Complex/Vit C/Folic Acid (Nephro-Kike) 1 tab PO DAILY [facility] Last Admin: 01/21/18 10:39 Dose: 1 tab - Labs Labs: 01/21/18 08:04 01/19/18 08:09 PT 11.6 SECONDS (9.7-12.2) 01/19/18 08:09 INR 1.0 01/19/18 08:09 APTT 37 SECONDS (21-34) H 01/19/18 08:09 - Constitutional Appears: Non-toxic - Head Exam Head Exam: NORMOCEPHALIC - Eye Exam Eye Exam: absent: Scleral icterus - ENT Exam ENT Exam: Mucous Membranes Moist - Neck Exam Neck Exam: Full ROM - Respiratory Exam Respiratory Exam: NORMAL BREATHING PATTERN - Cardiovascular Exam Cardiovascular Exam: REGULAR RHYTHM - GI/Abdominal Exam GI & Abdominal Exam: Soft. absent: Tenderness - Extremities Exam Extremities Exam: Calf Tenderness. absent: Pedal Edema - Neurological Exam Neurological Exam: Alert, Oriented x3 Assessment and Plan - Assessment and Plan (Free Text) Assessment: ESRD s/p AV graft implant CAD T2dm Anemia Plan: Cont monitoring for bleeding Cont meds CBC in am
--- NOTE | 2018-01-22 06:55 | PN ---
DATE: 01/21/2018 FOLLOWUP RENAL CONSULTATION LOCATION: 660, bed B. REQUESTED BY: Dr. Allen Clark. REASON FOR FOLLOWUP: End-stage renal disease and continuation with hemodialysis. HISTORY OF PRESENT ILLNESS: Mr. Britt is a 77 years elderly Nepalese male with a past medical history significant for longstanding hypertension, diabetes, hyperlipidemia, coronary artery disease, cardiomyopathy, end-stage renal disease on hemodialysis was admitted with chest discomfort and subsequently the patient underwent left upper extremity AV fistula placement on Monday. The patient was oozing from the left AV fistula site and discharge was on hold yesterday. The patient underwent hemodialysis on Monday without any difficulty using a Perm-A-Cath. Denies any chest pain or palpitation. Denies any fever or cough. No abdominal pain. No nausea, vomiting, diarrhea. No bleeding from the fistula today as per the patient's at bedside. PHYSICAL EXAMINATION: VITAL SIGNS: Blood pressure 126/73, pulse 83, respiration 18, temperature 98.4, saturation 98%. Height 5 feet, weight is 120 pounds. GENERAL: Mr. Britt is a 77 years old elderly [place]alese male, moderately built, moderately nourished, not in distress. HEENT: Pupils normal, react to light and accommodation. Conjunctivae pink. Sclerae anicteric. Tongue is moist. Trachea is midline. LUNGS: Symmetric on both sides. Bilateral breath sounds present. Clear to auscultation. CVS: [place] at the fifth intercostal space, midclavicular line. S1 and S2 audible. No murmur or gallop. ABDOMEN: Normal in appearance, soft, tympanic. No guarding, no rigidity. No hepatosplenomegaly. 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 Nonfocal neuro examination. Cranial nerves II through XII grossly intact. Sensory and motor system is within normal limits. EXTREMITIES: No cyanosis, no clubbing, no edema. CURRENT MEDICATIONS: Crestor 10 mg at bedtime, heparin subcu but the patient is receiving heparin 4000 units in the catheter post dialysis Perm-A-Cath, Nephro-Kike 1 tablet daily, PhosLo 667 mg p.o. t.i.d., Plavix 75 mg daily, Procrit 4000 units three times a week, Toprol XL 25 mg p.o. daily, Tylenol and Zemplar 2 mcg three times a week. LABORATORY DATA: As of 01/21/2018; WBC 6.2, hemoglobin 8.3, hematocrit is 24 and platelets 74. ASSESSMENT: In summary, Mr. Britt is a 77 years old elderly male with hypertension, diabetes, coronary artery disease, unable to place stents 6 months ago, cardiomyopathy end-stage renal disease, status post automatic implantable cardioverter-defibrillator placement was admitted with chest pain and subsequently the patient underwent left upper extremity arteriovenous fistula with oozing and low platelets. 1. End-stage renal disease. Continue hemodialysis three times a week Monday, , Monday. 2. Anemia secondary to recent surgery and possible slight bleeding from the arteriovenous fistula site. Continue to monitor hemoglobin and hematocrit. Continue Procrit. We will increase to 10,000 units three times a week from 4000. 3. Thrombocytopenia, rule out drug-induced thrombocytopenia, rule out heparin-induced thrombocytopenia. We will check heparin-induced antibodies and consider Hematology evaluation with Dr. Escobar for thrombocytopenia. 4. Hypertension. Blood pressure is stable. PLAN: Continue to monitor low sodium, low potassium diet and restrict fluids to 1 liter per day. We will follow with you. Follow up with Vascular Surgery for possible discharge in a.m. Thank you for allowing me to participate in your patient's care. Janet Foster MD
[2018-01-22 07:47] LABS: BASO # 0.1 K/uL (0.0-0.2); BASO % 1.2 % (0.0-2.0); EOS # 0.6 K/uL (0.0-0.7); EOS % 9.3 % (0.0-4.0); HEMOGLOBIN 7.9 g/dL (12.0-18.0); LYMPH # 1.9 K/uL (1.0-4.3); LYMPH % 31.5 % (20.0-40.0); MEAN CELL VOLUME 94.5 fL (80.0-94.0); MEAN CORPUSCULAR HEMOGLOBIN 32.9 pg (27.0-31.0); MEAN CORPUSCULAR HGB CONC 34.8 g/dL (33.0-37.0); MEAN PLATELET VOLUME 8.4 fL (7.2-11.7); MONO # 0.6 K/uL (0.0-0.8); MONO % 9.5 % (0.0-10.0); NEUT % 48.5 % (50.0-75.0); RBC 2.41 Mil/uL (4.40-5.90); RED CELL DISTRIBUTION WIDTH 15.2 % (11.5-14.5); WHITE BLOOD COUNT 6.1 K/uL (4.8-10.8)
[2018-01-22 08:12] LABS: BLOOD UREA NITROGEN 37 mg/dL (9-20); CALCIUM 8.7 mg/dl (8.6-10.4); GFR AFRICAN-AMERICAN 8; GFR NON-AFRICAN AMERICAN 6
[2018-01-22 08:47] LABS: HEPATITIS B SURFACE AG Negative (NEGATIVE)
[2018-01-22 08:52] LABS: HEPATITIS A IGM NEGATIVE (NEGATIVE); HEPATITIS B CORE AB NEGATIVE (NEGATIVE)
[2018-01-22 08:55] LABS: FOLATE > 20.0 ng/mL
[2018-01-22 09:04] LABS: HEPATITIS C ANTIBODY NEGATIVE (NEGATIVE)
--- NOTE | 2018-01-22 09:44 | OP ---
PROCEDURE DATE: 01/19/2018 PREOPERATIVE DIAGNOSIS: Renal failure. POSTOPERATIVE DIAGNOSIS: Renal failure. PROCEDURE CARRIED OUT: Brachio-brachial fistula, left elbow. SURGEON: Yassine Son Jr., MD SHINGLES ROOFER HELPER: Dr. Hayes. ANESTHESIOLOGIST: Mr. Murry. Local with sedation. FINDINGS: The patient is a 77-year-old man with renal insufficiency, has a pacemaker defibrillator on the left side, dialysis catheter on the right side. Preoperative vein mapping did not reveal any suitable veins for creation of a fistula. However, I would felt that this could be explored after we reviewed this with intraoperative immediate preoperative ultrasound to see if a vein could be exposed and a vein could be given a chance to dilate. OPERATIVE FINDINGS: There is no satisfactory basilic or cephalic vein with which we could do a fistula. We did however go to the brachial vein, which is medially adjacent but somewhat small. At the end of the procedure, there was a bruit and a palpable pulse at the wrist. The procedure was terminated. ESTIMATED BLOOD LOSS: 25 mL. COMPLICATIONS: There were no operative complications. The operation carried out is brachio-brachial fistula, left elbow. Most likely, the patient will require a second intervention as to see how this matures. The optimal prognosis here depends on the veins dilate, the vessels are very small, and may not be adequate for access. Yassine Son Jr., MD cc: Allen Clark MD cc: Janet Foster MD
[2018-01-22] MEDS: Multivitamin Vitamin B Complex (Nephro-Vite) Tab PO SCH (10:18)
[2018-01-22] MEDS: Metoprolol Succinate 25 mg XL Tab PO SCH (10:18)
--- NOTE | 2018-01-22 12:40 | CP.PCM.PN ---
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 NOTES Objective - Vital Signs/Intake and Output Vital Signs (last 24 hours): Temp Pulse Resp BP Pulse Ox 97.7 F 90 20 123/66 100 01/22/18 07:35 01/22/18 09:09 01/22/18 07:35 01/22/18 07:35 01/22/18 09:09 Intake and Output: 01/22/18 01/22/18 06:59 18:59 Intake Total 150 Output Total 200 Balance -50 - Medications Medications: Current Medications Acetaminophen (Tylenol 325mg Tab) 650 mg PO Q6 PRN PRN Reason: Pain, moderate (4-7) Calcium Acetate (Phoslo) 667 mg PO TID [facility] Last Admin: 01/22/18 10:18 Dose: 667 mg Clopidogrel Bisulfate (Plavix) 75 mg PO DAILY [facility] Last Admin: 01/22/18 10:18 Dose: 75 mg Epoetin Xavier (Procrit) 4,000 unit IV TTS [facility] Stop: 01/30/18 10:01 Last Admin: 01/20/18 16:22 Dose: 4,000 unit Metoprolol Succinate (Toprol Xl) 25 mg PO DAILY [facility] Last Admin: 01/22/18 10:18 Dose: 25 mg Paricalcitol (Zemplar) 2 mcg IV TTS [facility] Stop: 01/30/18 10:01 Last Admin: 01/20/18 16:21 Dose: 2 mcg Rosuvastatin Calcium (Crestor) 10 mg PO HS [facility] Last Admin: 01/21/18 22:05 Dose: 10 mg Vitamin B Complex/Vit C/Folic Acid (Nephro-Kike) 1 tab PO DAILY [facility] Last Admin: 01/22/18 10:18 Dose: 1 tab - Labs Labs: 01/22/18 07:12 01/22/18 07:12 PT 11.6 SECONDS (9.7-12.2) 01/19/18 08:09 INR 1.0 01/19/18 08:09 APTT 37 SECONDS (21-34) H 01/19/18 08:09 Assessment and Plan - Assessment and Plan (Free Text) Assessment: a/p 77 year old male, WITH PMHx of CHF and ESRD, on HD admitted for shortness of breath and chest pain 3 s/p Brachio-brachial AVF of LUE, POD 3 hbg- today 7.9 <8.3<9.2<10.7 cr- 8.9 today D/W , recommends to do extra HD today and transfuse 2 units with HD The plan discussed with patient and son at bed side
[2018-01-22] MEDS ORDERED: Epoetin Alfa 10,000 unit/ml Dialysis SC ONE (16:45)
[2018-01-22] MEDS ORDERED: Epoetin Alfa 10,000 unit/ml Dialysis IV ONE (17:06)
--- NOTE | 2018-01-22 17:37 | PCM.HF ---
Heart Failure Core Measure - Heart Failure Ejection Fraction: Less Than 40 % KULWINDER Inhibitor Prescribed: No Contraindication/Reason for not providing: ESRD Beta-Suki Prescribed: Metoprolol Succinate Angiotensin II Receptor Suki Prescribed: No Contraindication/Reason for not providing: esrd AnticoagulationTherapy for Atrial Fibrillation/Atrialflutter: No Contraindication/Reason for not providing: no hx of a fib/ hx of bleeding Aldosterone Antagonist Prescribed: No Contraindication/Reason for not providing: esrd Hydralazine Nitrate Prescribed: No Contraindication/Reason for not providing: bp running low Implantable Cardioverter Defibrillator Therapy: No Contraindication/Reason for not providing: pt has ICD Cardiac Resynchronization Therapy Prescribed: No Contraindication/Reason for not providing: AICD - Follow up Will be discharged to: Home Follow Up Date (must be within 7 days from discharge): 01/25/18 Follow Up Time: 09:00
[2018-01-22 17:54] VITALS: RESP 20; TEMP 98.1; O2SAT 97
[2018-01-22 18:07] VITALS: BP 143/77; PULSE 78
--- NOTE | 2018-01-22 20:08 | CP.PCM.PN ---
Subjective - Date & Time of Evaluation Date of Evaluation: 01/22/18 Time of Evaluation: 18:25 - Subjective Subjective: pt is seen and examined, follow up consult is dictated #[id number] s/p hd and transfusion today, uf 2.3 lit Objective - Vital Signs/Intake and Output Vital Signs (last 24 hours): Temp Pulse Resp BP Pulse Ox 98.1 F 87 20 151/81 H 97 01/22/18 17:53 01/22/18 17:53 01/22/18 17:53 01/22/18 17:53 01/22/18 18:00 Intake and Output: 01/22/18 01/23/18 18:59 06:59 Intake Total 1180 Balance 1180 - Labs Labs: 01/22/18 07:12 01/22/18 07:12 PT 11.6 SECONDS (9.7-12.2) 01/19/18 08:09 INR 1.0 01/19/18 08:09 APTT 37 SECONDS (21-34) H 01/19/18 08:09
--- NOTE | 2018-01-23 04:22 | PN ---
DATE: 01/22/2018 FOLLOWUP RENAL CONSULTATION LOCATION: The patient is located in room 660, bed B. REQUESTED BY: Allen Clark MD REASON FOR FOLLOWUP: End-stage renal disease, anemia for possible hemodialysis, and transfusion. HISTORY OF PRESENT ILLNESS: Mr. Britt is a 77 years old elderly [place] male with a history of longstanding hypertension, diabetes, coronary artery disease, cardiomyopathy, end-stage renal disease, on hemodialysis three times a week; Monday, , and Monday, who was admitted initially with chest discomfort, and subsequently, the patient also underwent AV fistula placement on the left upper extremity - status post oozing from the AV fistula site. The patient was found to have low H and H this morning, and type and cross was done. The patient was scheduled for hemodialysis and also scheduled to receive 2 units of packed RBC during dialysis, and possible discharge after dialysis and transfusion. The patient is not in acute distress; and denies any headache, dizziness. Denies any chest pain or palpitation. Denies any fever or cough. No abdominal pain. No nausea, vomiting, diarrhea. PHYSICAL EXAMINATION: VITAL SIGNS: As follows, blood pressure 151/81, pulse 87, respirations 20, temperature 98.1, saturation 97%. Height 5 feet, weight is 120 pounds. GENERAL: Mr. Britt is 77 years old elderly [place] male, moderately built, moderately nourished, not in distress. HEENT: Pupils normal and reactive to light and accommodation. Conjunctivae pink. Sclerae anicteric. Tongue is moist. Trachea is midline. LUNGS: Symmetric on both sides. Bilateral breath sounds present. Clear to auscultation. CVS: Fowler at the fifth intercostal space, midclavicular line. S1, S2 audible. No murmur or gallop. ABDOMEN: Normal in appearance, soft, tympanic. No guarding. No rigidity. No hepatosplenomegaly. ORIENTAL RUG REPAIRER: The patient is alert, awake, and oriented x3. Nonfocal neuro examination. Cranial nerves II through XII grossly intact. Sensory and motor system is within normal limits. EXTREMITIES: No cyanosis, no clubbing, no edema. The patient has a good bruit of the AV fistula site. MEDICATIONS: His current medications include as follows, Nephro-Kike 1 tablet daily, metoprolol 25 mg p.o. daily, Crestor 10 mg at bedtime, Plavix 75 mg daily, calcium acetate 661 mg p.o. t.i.d. with food. LABORATORY DATA: Include as follows, as of 01/22/2018, WBC 6.1, hemoglobin 7.9, hematocrit is 22.8, platelets 110. Sodium 143, potassium 4.2, chloride 100, CO of 29, BUN 37, creatinine 8.1, glucose 91, calcium 8.7, phosphorus 3.9, ferritin 358, B12 of 941. Folic acid more than 20. Hepatitis A antibody is negative, hepatitis B surface antigen negative, core antibody negative, hep C antibody is negative. HIV 1 and 2 antibody screening was negative. IMPRESSION: In summary, Mr. Britt is 77 years old elderly [place] male with hypertension, diabetes, end-stage renal disease, cardiomyopathy, coronary artery disease, status post AICD placement who was admitted with chest pain and status post left upper extremity AV fistula oozing postop and now low H and H, hemoglobin 7.9 and decreased from 10. 1. End-stage renal disease. Continue hemodialysis three times a week. We will schedule for hemodialysis today, and packed RBC transfusion 2 units during dialysis. The patient had UF about 2.3 liters, tolerated it very well. 2. Hypertension. Blood pressure is stable. 3. Cardiomyopathy. 4. Anemia secondary to slow bleeding from the AV fistula site. No active bleeding today. 5. Status post thrombocytopenia, etiology is not clear, rule out drug-induced thrombocytopenia. Followup heparin-induced antibodies, for possible discharge this evening by Dr. Clark. Thank you for allowing me to participate in your patient's care. Stable from the renal standpoint. Janet Foster MD [facility]
[2018-01-23 13:00] LABS: ALBUMIN (PEP) 3.4 g/dL (3.8-4.8); ALPHA-1-GLOBULIN (PEP) 0.3 g/dL (0.2-0.3)
== END 2018-01-22 18:48 | disposition home or self-care (01) ==
LOC: C.ER 10:19 → C.9E 14:13 → C.6T 14:50
PROVIDERS: ADMIT Internal Medicine; ATTEND Internal Medicine
DX: I13.2 Hypertensive heart and chronic kidney disease with heart failure and with stage 5 chronic kidney disease, or end stage renal disease (principal); I50.9 Heart failure, unspecified; N18.6 End stage renal disease; I25.10 Atherosclerotic heart disease of native coronary artery without angina pectoris; E78.5 Hyperlipidemia, unspecified; E11.22 Type 2 diabetes mellitus with diabetic chronic kidney disease; D69.6 Thrombocytopenia, unspecified; Z99.2 Dependence on renal dialysis
CPT/HCPCS: 36415; 36821; 71045; 80053; 82948; 83735; 83880; 84484; 85025; 85027; 85610; 85730; 86023; 86850; 86900; 87340; 93005; 99285; G0257; J0690; J0885; J1644; J2501

== ENCOUNTER 2018-04-26 09:09 | Emergency (ER) | payer OTHER ==
[2018-04-26 09:20] VITALS: BMI 23.6
[2018-04-26 09:21] VITALS: O2SAT 99
--- NOTE | 2018-04-26 09:46 | C.PDOC ---
History Of Present Illness 77yo male, with ESRD and currently on hemodialysis (T, Th, Sa) comes to ER stating he has been feeling weak. Patient states he has not had dialysis x 2 sessions due to loss of access. Patient currently denies any fever, chills, chest pain or shortness of breath. He has no additional medical complaints. Time Seen by Provider: 04/26/18 09:17 Chief Complaint (Nursing): Medical Clearance History Per: Patient History/Exam Limitations: no limitations Onset/Duration Of Symptoms: Days Current Symptoms Are (Timing): Still Present Additional History Per: Patient Past Medical History Reviewed: Historical Data, Nursing Documentation, Vital Signs Vital Signs: Last Vital Signs Temp 99.1 F 04/26/18 09:20 Pulse 91 H 04/26/18 09:20 Resp 18 04/26/18 09:20 BP 132/68 04/26/18 09:20 Pulse Ox 99 04/26/18 11:28 - Medical History PMH: End Stage Renal Disease, Chronic Kidney Disease Family History: States: No Known Family Hx, Unknown Family Hx - Social History Hx Alcohol Use: No Hx Substance Use: No - Immunization History Hx Tetanus Toxoid Vaccination: No Hx Influenza Vaccination: No Hx Pneumococcal Vaccination: No Review Of Systems Except As Marked, All Systems Reviewed And Found Negative. Constitutional: Positive for: Weakness. Negative for: Fever, Chills Cardiovascular: Negative for: Chest Pain Respiratory: Negative for: Shortness of Breath Gastrointestinal: Negative for: Nausea, Vomiting Physical Exam - Physical Exam Appears: Non-toxic Skin: Normal Color, Warm, Dry Head: Atraumatic, Normacephalic Eye(s): bilateral: Normal Inspection Oral Mucosa: Moist Neck: Normal ROM, Supple Chest: Symmetrical Cardiovascular: Rhythm Regular Respiratory: Normal Breath Sounds Extremity: Normal ROM, No Deformity, Other (AV fistula noted to left antecubtal fossa; no bruit noted) Neurological/Psych: Oriented x3, Normal Motor, Normal Sensation ED Course And Treatment - Laboratory Results Result Diagrams: 04/26/18 10:13 04/26/18 10:13 O2 Sat by Pulse Oximetry: 99 (RA) Pulse Ox Interpretation: Normal Medical Decision Making Medical Decision Making: Plan: -- Labs -- EKG -- CXR Dr. Son to see patient in ER for admission due to loss of access for hemodialysis. Patient reports he ate food at 7:30AM and is unable to undergo surgery today. Patient to be discharged home and follow up with Dr. Son. Disposition Discussed With : Yassine Son Jr. Counseled Patient/Family Regarding: Diagnosis - Disposition Disposition: HOME/ ROUTINE Disposition Time: 11:28 Condition: GUARDED - POA Present On Arrival: None - Clinical Impression Clinical Impression: AV shunt malfunction - Scribe Statement The provider has reviewed the documentation as recorded by the Hollis Valenzuela Provider Attestation: All medical record entries made by the Rmairoibthi were at my direction and personally dictated by me. I have reviewed the chart and agree that the record accurately reflects my personal performance of the history, physical exam, medical decision making, and the department course for this patient. I have also personally directed, reviewed, and agree with the discharge instructions and disposition. Decision To Admit - Pt Status Changed To: Hospital Disposition Of: Inpatient - Admit Certification Admit to Inpatient:: After my assessment, the patient will require hospitalization for at least two midnights. This is because of the severity of symptoms shown, intensity of services needed, and/or the medical risk in this patient being treated as an outpatient. - InPatient: Physician Admission Certification: I certify that this patient requires 2 or more midnights of care for the following reason:: patient will need AV shunt repair and a trial of HD - . Bed Request Type: Telemetry Patient Diagnosis: AV shunt malfunction
[2018-04-26 10:18] LABS: BASO # 0.1 K/uL (0.0-0.2); BASO % 0.9 % (0.0-2.0); EOS # 0.3 K/uL (0.0-0.7); EOS % 3.7 % (0.0-4.0); LYMPH # 2.5 K/uL (1.0-4.3); LYMPH % 27.3 % (20.0-40.0); MEAN CORPUSCULAR HEMOGLOBIN 32.8 pg (27.0-31.0); MEAN CORPUSCULAR HGB CONC 34.5 g/dL (33.0-37.0); MEAN PLATELET VOLUME 8.1 fL (7.2-11.7); MONO # 0.8 K/uL (0.0-0.8); MONO % 8.6 % (0.0-10.0); NEUT # 5.5 K/uL (1.8-7.0); NEUT % 59.5 % (50.0-75.0); NRBC % 0.2 % (0.0-2.0); RBC 3.33 Mil/uL (4.40-5.90); RED CELL DISTRIBUTION WIDTH 15.9 % (11.5-14.5)
[2018-04-26 10:19] LABS: HEMOGLOBIN 10.9 g/dL (12.0-18.0); WHITE BLOOD COUNT 9.3 K/uL (4.8-10.8)
[2018-04-26 10:28] LABS: PROTHROMBIN TIME 10.8 SECONDS (9.7-12.2)
--- NOTE | 2018-04-26 11:08 | RAD ---
Date of service: 04/26/2018 PROCEDURE: CHEST RADIOGRAPH, 1 VIEW HISTORY: SOB COMPARISON: 01/18/2018 FINDINGS: Right-sided central venous catheter terminates at the cavoatrial junction. LUNGS: The lungs are clear. PLEURA: No pneumothorax or pleural fluid seen. CARDIOVASCULAR: The heart is normal in size. There is unfolding of the aorta. There is stable position of left-sided AICD OSSEOUS STRUCTURES: No significant abnormalities. VISUALIZED UPPER ABDOMEN: Normal. OTHER FINDINGS: None. IMPRESSION: No active pulmonary disease.
[2018-04-26 11:25] LABS: ALB/GLOB RATIO 1.3 (1.0-2.1); ALBUMIN 4.6 g/dL (3.5-5.0); CALCIUM 10.5 mg/dl (8.6-10.4)
[2018-04-26 12:03] VITALS: BP 138/71; PULSE 83; RESP 16; TEMP 98.1
--- NOTE | 2018-04-27 20:55 | CARD ---
APPROVED REPORT Date of service: 04/26/2018 EKG Measurement Heart [id number] CO [id number] [id number] <Conclusion> Normal sinus rhythm Moderate voltage criteria for LVH, may be normal variant Inferior infarct, age undetermined Abnormal ECG
== END 2018-04-26 11:46 | disposition home or self-care (01) ==
LOC: C.ER 09:09 → UNDOADMIN 09:47 → C.9E 09:47 → C.ER 11:46
DX: T82.511A Breakdown (mechanical) of surgically created arteriovenous shunt, initial encounter (principal); Y84.9 Medical procedure, unspecified as the cause of abnormal reaction of the patient, or of later complication, without mention of misadventure at the time of the procedure

== ENCOUNTER 2018-05-01 08:32 | Day surgery (SDC) | payer OTHER ==
[2018-05-01 08:33] VITALS: BMI 23.6
--- NOTE | 2018-05-01 09:01 | C.PDOC ---
History Of Present Illness 77 year old male patient with hx of ESRD presents to the ER referred by Dr. Hernandez for left AV graft revision due to loss of HD access. Patient had no oral intake since midnight. Patient is asymptomatic; denies fatigue and swelling on extremities. Patient is currently on hemodialysis (Monday, , and Monday). L AV GRAFT REVISION DUE TO LOSS OF HD ACCESS. PT ASYMPT. NPO SINCE MIDNIGHT. REFERRED BY DR HERNANDEZ ESRD and currently on hemodialysis (, , ) EXAM NAD EXT L AVF REMAINDER NEG Time Seen by Provider: 05/01/18 09:01 Chief Complaint (Nursing): Medical Clearance History Per: Patient History/Exam Limitations: no limitations Past Medical History Reviewed: Historical Data, Nursing Documentation, Vital Signs Vital Signs: Last Vital Signs Temp 98.8 F 05/01/18 11:12 Pulse 73 05/01/18 11:12 Resp 18 05/01/18 11:12 BP 142/71 05/01/18 11:12 Pulse Ox 99 05/01/18 11:12 - Medical History PMH: End Stage Renal Disease, Chronic Kidney Disease Family History: States: Unknown Family Hx - Social History Hx Alcohol Use: No Hx Substance Use: No - Immunization History Hx Tetanus Toxoid Vaccination: No Hx Influenza Vaccination: No Hx Pneumococcal Vaccination: No Review Of Systems Except As Marked, All Systems Reviewed And Found Negative. Constitutional: Negative for: Other (fatigue) Musculoskeletal: Negative for: Other (swelling of ext.) Physical Exam - Physical Exam Appears: No Acute Distress Skin: Normal Color, Warm, Dry Head: Normacephalic Eye(s): bilateral: Normal Inspection Neck: Normal ROM, Supple Chest: Symmetrical, No Deformity Cardiovascular: Rhythm Regular Respiratory: Normal Breath Sounds Gastrointestinal/Abdominal: Soft, No Tenderness Back: No CVA Tenderness Extremity: Normal ROM (x4), Other (left AVF) Extremity: Bilateral: Atraumatic Neurological/Psych: Oriented x3, Normal Speech, Normal Motor, Normal Sensation, Normal Reflexes Gait: Steady ED Course And Treatment - Laboratory Results Result Diagrams: 05/01/18 09:39 05/01/18 09:39 ECG: Interpreted By Me, Viewed By Me ECG Rhythm: Sinus Rhythm ECG Interpretation: No Acute Changes Interpretation Of ECG: EKG shows pacemaker cordis catheter; unchanged 05-12; T- wave inversion V5 and V6 Rate From EC O2 Sat by Pulse Oximetry: 100 (RA) Pulse Ox Interpretation: Normal - Other Rad CXR X-Ray: Read By Radiologist Interpretation: Accession No. : [id number]. Patient Name / ID : JASEN CULVER P / [id number]. Exam Date : 05/01/2018 09:06:07 ( Approved ). Study Comment : Sex / Age : M / 77Y. Creator : Alley Freeman V. Dictator : Alley Freeman V. Vice President Sales : Dress Cutter : Alley Freeman V. Approver2 : Report Date : 05/01/2018 11:04:59. My Comment : . Date of service: 05/01/2018. HISTORY: Pre Op. COMPARISON: 04/26/2018. TECHNIQUE: Chest PA and lateral. FINDINGS: LUNGS: No consolidation. The lungs clear. PLEURA: No significant pleural effusion identified. No pneumothorax apparent. CARDIOVASCULAR: Minimal cardiomegaly. Tortuous unfolded thoracic aorta - both similar appearing. AICD device in place as before. Right central line at cavoatrial junction-similar. OSSEOUS STRUCTURES: No significant abnormalities. VISUALIZED UPPER ABDOMEN: Normal. OTHER FINDINGS: None. IMPRESSION: No acute cardiopulmonary pathology appreciated. Other findings -as above. Progress Note: Impression: reffered by doctor for Left AV graft revision. Plans : -- EKG. -- blood work. -- CXR. -- UA. Reassess: patient is resting comfortably. NAD. Patient is instructed to f/u with PCP in 1-2 days. Disposition Counseled Patient/Family Regarding: Studies Performed, Diagnosis - Disposition Disposition: HOSPITALIZED Disposition Time: 09:09 Condition: STABLE - POA Present On Arrival: None - Clinical Impression Clinical Impression: AV shunt malfunction - Scribe Statement The provider has reviewed the documentation as recorded by the Scribe Quintanilla Do Provider Attestation: All medical record entries made by the Hollis were at my direction and personally dictated by me. I have reviewed the chart and agree that the record accurately reflects my personal performance of the history, physical exam, medical decision making, and the department course for this patient. I have also personally directed, reviewed, and agree with the discharge instructions and disposition.
[2018-05-01 09:46] LABS: BASO # 0.1 K/uL (0.0-0.2); BASO % 0.9 % (0.0-2.0); EOS # 0.4 K/uL (0.0-0.7); EOS % 4.7 % (0.0-4.0); HEMOGLOBIN 10.4 g/dL (12.0-18.0); LYMPH # 2.1 K/uL (1.0-4.3); LYMPH % 28.3 % (20.0-40.0); MEAN CELL VOLUME 96.6 fL (80.0-94.0); MEAN CORPUSCULAR HEMOGLOBIN 33.1 pg (27.0-31.0); MEAN CORPUSCULAR HGB CONC 34.3 g/dL (33.0-37.0); MEAN PLATELET VOLUME 7.6 fL (7.2-11.7); MONO # 0.6 K/uL (0.0-0.8); NEUT # 4.4 K/uL (1.8-7.0); NEUT % 58.1 % (50.0-75.0); RBC 3.12 Mil/uL (4.40-5.90); RED CELL DISTRIBUTION WIDTH 16.6 % (11.5-14.5); WHITE BLOOD COUNT 7.5 K/uL (4.8-10.8)
[2018-05-01 10:00] LABS: PROTHROMBIN TIME 10.7 SECONDS (9.7-12.2)
[2018-05-01 10:08] LABS: ALB/GLOB RATIO 1.4 (1.0-2.1); ALBUMIN 4.6 g/dL (3.5-5.0); CALCIUM 10.4 mg/dl (8.6-10.4)
--- NOTE | 2018-05-01 11:06 | RAD ---
Date of service: 05/01/2018 HISTORY: Pre Op COMPARISON: 04/26/2018 TECHNIQUE: Chest PA and lateral FINDINGS: LUNGS: No consolidation. The lungs clear PLEURA: No significant pleural effusion identified. No pneumothorax apparent. CARDIOVASCULAR: Minimal cardiomegaly. Tortuous unfolded thoracic aorta - both similar appearing AICD device in place as before Right central line at cavoatrial junction-similar OSSEOUS STRUCTURES: No significant abnormalities. VISUALIZED UPPER ABDOMEN: Normal. OTHER FINDINGS: None. IMPRESSION: No acute cardiopulmonary pathology appreciated. Other findings -as above.
[2018-05-01] MEDS ORDERED: Lidocaine Hydrochloride 5 ML INJ ONE (11:48)
[2018-05-01] MEDS ORDERED: ceFAZolin IV 1 gm in Dextrose 1 GM/50 ML BAG IVPB ONE (11:48)
[2018-05-01] MEDS ORDERED: HEPARIN-NS 5,000 UNITS/500 ML 5,000 UNIT/500 ML BAG IV ONE (11:49)
[2018-05-01] MEDS ORDERED: DiphenhydrAMINE 50 mg/ml Inj ONE (11:52)
[2018-05-01] MEDS ORDERED: Lidocaine Hydrochloride 10 ML INJ ONE ×2 (12:15→12:31)
[2018-05-01] MEDS ORDERED: Thrombin Topical 20,000 Intl Units Spray Kit TOP ONE (12:32)
[2018-05-01] MEDS ORDERED: HYDROmorphone 0.5 mg/0.5 ml ISec IVP PRN (13:40)
--- NOTE | 2018-05-01 13:44 | PCM.SURG1 ---
Surgeon's Initial Post Op Note - Surgeon's Notes Surgeon: jae Biomedical Service Engineer: 0 Type of Anesthesia: IV Sedation Anesthesia Administered By: kusum Pre-Operative Diagnosis: malfunctioning av fistula left arm Operative Findings: small vein, deep. dilated hydrostatically Post-Operative Diagnosis: same Operation Performed: revision avf. cephalic vein transposition. hydroststic dilatation Specimen/Specimens Removed: 0 Estimated Blood Loss: EBL {In ML}: 100 Blood Products Given: N/A Drains Used: No Drains Post-Op Condition: Good Date of Surgery/Procedure: 05/01/18 Time of Surgery/Procedure: 13:43
[2018-05-01] MEDS ORDERED: Oxycodone/Acetaminophen 5/325 mg Tab PO PRN (13:45)
--- NOTE | 2018-05-01 15:21 | CARD ---
APPROVED REPORT Date of service: 05/01/2018 EKG Measurement Heart [id number] ND 170P32 [id number] <Conclusion> Normal sinus rhythm Left ventricular hypertrophy with repolarization abnormality Inferior infarct, age undetermined Abnormal ECG
[2018-05-01 15:33] VITALS: BP 139/61; PULSE 71; RESP 18; TEMP 98; O2SAT 98
--- NOTE | 2018-05-02 00:50 | OP ---
Copied To: Yassine Son Jr., MD Attending MD: Yassine Son Jr., MD PROCEDURE DATE: 05/01/2018 PREOPERATIVE DIAGNOSIS: Malfunctioning immature fistula, left arm. POSTOPERATIVE DIAGNOSIS: Malfunctioning immature fistula, left arm. PROCEDURE CARRIED OUT: Revision of arteriovenous fistula with cephalic vein transposition and balloon dilatation. SURGEON: Yassine Son Jr., MD LUMITE INJECTOR: None. ANESTHESIA: Local with sedation. ANESTHESIOLOGIST: Mr. Mehta. INDICATIONS: The patient is a middle-aged man with renal insufficiency, presently dialyzes with the use of a catheter, has a fistula which is not working or cannot be utilized for dialysis. Because of this, he came to the emergency room. OPERATIVE FINDINGS: The cephalic vein was of a size between 4 and 5 mm. It was hydrostatically dilated to a larger size. After this had been done and after hemostasis was obtained in the wound, we then closed the subcutaneous tissues and put the fistula in the arterialized vein just in the immediate subcutaneous tissues. Blood loss for the procedure was 100 mL primarily due to Plavix use. DESCRIPTION OF PROCEDURE: The patient was given local anesthesia. The vein was dissected free as well as the branches were ligated. The tributaries were ligated. Hemostasis was obtained which took a great deal of time and after this had been done, we then placed in subcutaneous position, closed the skin with clips and nylon. We terminated the procedure. BLOOD LOSS: 100 mL. OPERATION CARRIED OUT: Revision of arteriovenous fistula with cephalic vein transposition and hydrostatic dilatation of the graft. Yassine Son Jr., MD
== END 2018-05-01 16:29 | disposition home or self-care (01) ==
LOC: C.ER 08:32 → C.SDS 09:25
PROVIDERS: ATTEND Surgery Vascular Surgery
DX: T82.510A Breakdown (mechanical) of surgically created arteriovenous fistula, initial encounter (principal); N18.6 End stage renal disease; I51.7 Cardiomegaly; Z95.810 Presence of automatic (implantable) cardiac defibrillator; Z99.2 Dependence on renal dialysis; I25.10 Atherosclerotic heart disease of native coronary artery without angina pectoris; I12.0 Hypertensive chronic kidney disease with stage 5 chronic kidney disease or end stage renal disease
CPT/HCPCS: 36818; 71046; 80053; 82948; 85025; 85610; 85730; 86850; 86900; 93005; J0690; J1200; J1644; J3010

== ENCOUNTER 2018-05-04 11:07 | Emergency (ER) | payer OTHER ==
[2018-05-04 11:15] VITALS: BMI 22.3
[2018-05-04 11:17] VITALS: BP 122/74; PULSE 96; RESP 18; TEMP 98.4; O2SAT 99
--- NOTE | 2018-05-04 12:39 | C.PDOC ---
History Of Present Illness 77yo male, currently status post Left AV Fistula created on 05/01/[address] Son, comes to ER with complaints of bleeding from the site x 2 days. Per son, patient refused to come to the ER yesterday. Patient denies any dizziness, lightheadedness, syncope, and offers no additional medical complaints. Time Seen by Provider: 05/04/18 11:16 Chief Complaint (Nursing): Abnormal Skin Integrity History Per: Patient History/Exam Limitations: no limitations Onset/Duration Of Symptoms: Days (2) Current Symptoms Are (Timing): Still Present Location Of Injury: Left: Arm Additional History Per: Patient Past Medical History Reviewed: Historical Data, Nursing Documentation, Vital Signs Vital Signs: Last Vital Signs Temp 98.4 F 05/04/18 11:15 Pulse 96 H 05/04/18 11:15 Resp 18 05/04/18 11:15 BP 122/74 05/04/18 11:15 Pulse Ox 99 05/04/18 13:08 - Medical History PMH: No Chronic Diseases, End Stage Renal Disease, Chronic Kidney Disease Family History: States: Unknown Family Hx - Social History Hx Alcohol Use: No Hx Substance Use: No - Immunization History Hx Tetanus Toxoid Vaccination: No Hx Influenza Vaccination: No Hx Pneumococcal Vaccination: No Review Of Systems Constitutional: Negative for: Weakness Cardiovascular: Negative for: Light Headedness Skin: Positive for: Other (bleeding from AV fistula site) Neurological: Negative for: Dizziness Physical Exam - Physical Exam Appears: Non-toxic, No Acute Distress Skin: Warm, Dry, No Pale Cardiovascular: Rhythm Regular Respiratory: Normal Breath Sounds Extremity: Other (dressing noted to left upper arm from left shoulder to elbow; old dried blood and bright red blood noted on dressing.) Neurological/Psych: Oriented x3, Normal Speech, Normal Cognition, Normal Motor, Normal Sensation ED Course And Treatment O2 Sat by Pulse Oximetry: 99 (RA) Pulse Ox Interpretation: Normal Medical Decision Making Medical Decision Making: pt seen by Dr Son in ER; dressing was reomved by him, with no active bleeding at this time; new dressing applied. pt may go home and f/u next week in his office. Disposition Discussed With : Yassine Son Jr. Doctor Will See Patient In The: Office - Disposition Referrals: Yassine Son Jr., MD [Staff Provider] - Disposition: HOME/ ROUTINE Disposition Time: 12:39 Condition: GOOD Additional Instructions: Please follow up with Dr Son in his office next week. Forms: [facility] (Latvian), General Discharge Instructions - Clinical Impression Clinical Impression: Encounter for postoperative wound check - PA / BREAKER HAND / Resident Statement MD/DO has reviewed & agrees with the documentation as recorded. - Scribe Statement The provider has reviewed the documentation as recorded by the Hollis Valenzuela Provider attestation: All medical record entries made by the Hollis were at my direction and personally dictated by me. I have reviewed the chart and agree that the record accurately reflects my personal performance of the history, physical exam, medical decision making, and the department course for this patient. I have also personally directed, reviewed, and agree with the discharge instructions and disposition.
== END 2018-05-04 12:57 | disposition home or self-care (01) ==
LOC: C.ER 11:07
DX: Z48.01 Encounter for change or removal of surgical wound dressing (principal)

== ENCOUNTER 2018-10-03 12:15 | Inpatient (IN) | payer OTHER ==
[2018-10-03 12:16] VITALS: BMI 22.3
[2018-10-03 15:46] LABS: BASO # 0.1 K/uL (0.0-0.2); BASO % 1.1 % (0.0-2.0); EOS # 0.4 K/uL (0.0-0.7); EOS % 6.7 % (0.0-4.0); LYMPH # 1.7 K/uL (1.0-4.3); LYMPH % 27.3 % (20.0-40.0); MEAN CORPUSCULAR HGB CONC 34.3 g/dL (33.0-37.0); MEAN PLATELET VOLUME 7.1 fL (7.2-11.7); MONO # 0.7 K/uL (0.0-0.8); MONO % 11.1 % (0.0-10.0); NEUT # 3.4 K/uL (1.8-7.0); NEUT % 53.8 % (50.0-75.0); NRBC % 0.1 % (0.0-2.0); RBC 2.45 Mil/uL (4.40-5.90); RED CELL DISTRIBUTION WIDTH 14.6 % (11.5-14.5); WHITE BLOOD COUNT 6.3 K/uL (4.8-10.8)
[2018-10-03 15:49] LABS: HEMOGLOBIN 8.3 g/dL (12.0-18.0); MEAN CELL VOLUME 99.2 fL (80.0-94.0)
[2018-10-03 15:54] LABS: PROTHROMBIN TIME 10.7 SECONDS (9.7-12.2)
[2018-10-03 16:16] LABS: ALB/GLOB RATIO 1.2 (1.0-2.1); ALBUMIN 4.2 g/dL (3.5-5.0); CALCIUM 8.7 mg/dl (8.6-10.4)
--- NOTE | 2018-10-03 16:29 | C.PDOC ---
History Of Present Illness 78 y/o male was sent in by Dr. Moss for dialysis. Patient is on dialysis on Monday, Monday, and Monday, and last dialysis was 2 days ago. Patient just arrived back from [facility] and has no other complaints. Chief Complaint (Nursing): Medical Clearance History Per: Patient History/Exam Limitations: no limitations Onset/Duration Of Symptoms: Days Current Symptoms Are (Timing): Still Present Past Medical History Reviewed: Historical Data, Nursing Documentation, Vital Signs Vital Signs: Last Vital Signs Temp 97.6 F 10/03/18 13:09 Pulse 68 10/03/18 13:09 Resp 18 10/03/18 13:09 BP 156/72 H 10/03/18 13:09 Pulse Ox 97 10/03/18 13:09 - Medical History PMH: End Stage Renal Disease, Chronic Kidney Disease Family History: States: No Known Family Hx - Social History Hx Alcohol Use: No Hx Substance Use: No - Immunization History Hx Tetanus Toxoid Vaccination: No Hx Influenza Vaccination: No Hx Pneumococcal Vaccination: No Review Of Systems Except As Marked, All Systems Reviewed And Found Negative. Physical Exam - Physical Exam Appears: Non-toxic, No Acute Distress Skin: Warm, Dry Head: Atraumatic, Normacephalic Eye(s): bilateral: Normal Inspection Oral Mucosa: Moist Neck: Supple Chest: Symmetrical Cardiovascular: Rhythm Regular, No Murmur Respiratory: Normal Breath Sounds, No Rales, No Rhonchi, No Wheezing Gastrointestinal/Abdominal: Soft, No Tenderness Extremity: Other (Shunt on LUE) Extremity: Bilateral: Normal Color And Temperature, Normal ROM Neurological/Psych: Oriented x3, Normal Speech ED Course And Treatment - Laboratory Results Result Diagrams: 10/03/18 15:43 10/03/18 15:43 Lab Results: PT 10.7 SECONDS (9.7-12.2) 10/03/18 15:43 INR 1.0 10/03/18 15:43 APTT 37 SECONDS (21-34) H 10/03/18 15:43 Total Bilirubin 0.5 mg/dL (0.2-1.3) 10/03/18 15:43 AST 35 U/L (17-59) 10/03/18 15:43 ALT 33 U/L (21-72) 10/03/18 15:43 Alkaline Phosphatase 80 U/L (38-126) 10/03/18 15:43 Total Protein 7.6 g/dL (6.3-8.3) 10/03/18 15:43 Albumin 4.2 g/dL (3.5-5.0) 10/03/18 15:43 Globulin 3.4 gm/dL (2.2-3.9) 10/03/18 15:43 Albumin/Globulin Ratio 1.2 (1.0-2.1) 10/03/18 15:43 O2 Sat by Pulse Oximetry: 97 (RA) Pulse Ox Interpretation: Normal Progress - Re-Evaluation Re-evaluation Note: Spoke to Dr. Moss and Dr. Mcleod. Patient will be admitted for dialysis. Medical Decision Making Medical Decision Making: Plan: --Bloodwork --Urinalysis Disposition - Disposition Disposition Time: 17:00 Condition: STABLE - Clinical Impression Clinical Impression: ESRD (end stage renal disease) on dialysis - Scribe Statement The provider has reviewed the documentation as recorded by the Hollis Giles Provider Attestation: All medical record entries made by the Hollis were at my direction and personally dictated by me. I have reviewed the chart and agree that the record accurately reflects my personal performance of the history, physical exam, medical decision making, and the department course for this patient. I have also personally directed, reviewed, and agree with the discharge instructions and disposition.
[2018-10-03 16:42] LABS: HEPATITIS B SURFACE AG Negative (NEGATIVE)
[2018-10-03 16:48] LABS: HEPATITIS A IGM NEGATIVE (NEGATIVE); HEPATITIS B CORE AB NEGATIVE (NEGATIVE)
[2018-10-03 17:00] LABS: HEPATITIS C ANTIBODY NEGATIVE (NEGATIVE)
--- NOTE | 2018-10-03 18:17 | CP.PCM.CON ---
History of Present Illness - History of Present Illness History of Present Illness: pt is seen and examined, full consult is dictated #[id number] for hd today Past Patient History - Past Social History Smoking Status: Never Smoked - CARDIAC Hx Cardiac Disorders: Yes Hx Internal Defibrillator: Yes Other/Comment: heart failure - RENAL Hx Chronic Kidney Disease: Yes - PSYCHIATRIC Hx Substance Use: No - SURGICAL HISTORY Hx Surgeries: Yes Other/Comment: Rt. ashley catheter, AICD. may 01, 2018= R av fistula - ANESTHESIA Hx Anesthesia: Yes Hx Anesthesia Reactions: No Meds Allergies/Adverse Reactions: Allergies Allergy/AdvReac Type Severity Reaction Status Date / Time No Known Allergies Allergy Verified 05/04/18 11:14 Results - Vital Signs Recent Vital Signs: Last Vital Signs Temp 97.6 F 10/03/18 17:01 Pulse 76 10/03/18 17:01 Resp 16 10/03/18 17:01 BP 143/70 10/03/18 17:01 Pulse Ox 97 10/03/18 18:07 - Labs Result Diagrams: 10/03/18 15:43 10/03/18 15:43 Labs: Laboratory Results - last 24 hr 10/03/18 10/03/18 10/03/18 15:43 15:43 15:43 WBC 6.3 RBC 2.45 L Hgb 8.3 L D Hct 24.3 L MCV 99.2 H D MCH 34.0 H MCHC 34.3 RDW 14.6 H Plt Count 208 MPV 7.1 L Neut % (Auto) 53.8 Lymph % (Auto) 27.3 [place] % (Auto) 11.1 H Eos % (Auto) 6.7 H Baso % (Auto) 1.1 Neut # (Auto) 3.4 Lymph # (Auto) 1.7 [place] # (Auto) 0.7 Eos # (Auto) 0.4 Baso # (Auto) 0.1 PT 10.7 INR 1.0 APTT 37 H Sodium 137 Potassium 3.8 Chloride 96 L Carbon Dioxide 30 Anion Gap 14 BUN 42 H Creatinine 9.3 H* D Est GFR ( Amer) 7 Est GFR (Non-Af Amer) 5 Random Glucose 89 Calcium 8.7 Total Bilirubin 0.5 AST 35 ALT 33 Alkaline Phosphatase 80 Total Protein 7.6 Albumin 4.2 Globulin 3.4 Albumin/Globulin Ratio 1.2 Hepatitis A IgM Ab Hep Bs Antigen Hep B Core IgM Ab Hepatitis C Antibody 10/03/18 15:43 WBC RBC Hgb Hct MCV MCH MCHC RDW Plt Count MPV Neut % (Auto) Lymph % (Auto) [place] % (Auto) Eos % (Auto) Baso % (Auto) Neut # (Auto) Lymph # (Auto) [place] # (Auto) Eos # (Auto) Baso # (Auto) PT INR APTT Sodium Potassium Chloride Carbon Dioxide Anion Gap BUN Creatinine Est GFR ( Amer) Est GFR (Non-Af Amer) Random Glucose Calcium Total Bilirubin AST ALT Alkaline Phosphatase Total Protein Albumin Globulin Albumin/Globulin Ratio Hepatitis A IgM Ab Negative Hep Bs Antigen Negative Hep B Core IgM Ab Negative Hepatitis C Antibody Negative
[2018-10-03] MEDS ORDERED: Epoetin Alfa Dialysis 20000 UNIT/ML Inj IV ONE (18:20)
[2018-10-03] MEDS ORDERED: Paricalcitol 2 mcg/ml Inj IV ONE (18:21)
--- NOTE | 2018-10-03 21:12 | CP.PCM.HP ---
History of Present Illness - History of Present Illness History of Present Illness: pt came in for dialysis esrf Present on Admission - Present on Admission Any Indicators Present on Admission: No Review of Systems - Review of Systems Systems not reviewed;Unavailable: Altered Mental Status - Constitutional Constitutional: Fatigue - EENT Eyes: As Per HPI Ears: As Per HPI Nose/Mouth/Throat: As Per HPI - Cardiovascular Cardiovascular: As Per HPI - Respiratory Respiratory: As Per HPI - Gastrointestinal Gastrointestinal: As Per HPI - Genitourinary Additional comments: esrf - Reproductive: Male Reproductive:Male: As Per HPI - Musculoskeletal Musculoskeletal: As Per HPI - Integumentary Integumentary: As Per HPI - Neurological Neurological: As Per HPI Additional comments: pt seems demented - Psychiatric Psychiatric: As Per HPI - Endocrine Endocrine: As Per HPI - Hematologic/Lymphatic Hematologic: As Per HPI Additional comments: aneamia Past Patient History - Past Social History Smoking Status: Never Smoked - CARDIAC Hx Cardiac Disorders: Yes Hx Internal Defibrillator: Yes Other/Comment: heart failure - RENAL Hx Chronic Kidney Disease: Yes - PSYCHIATRIC Hx Substance Use: No - SURGICAL HISTORY Hx Surgeries: Yes Other/Comment: Rt. ashley catheter, AICD. may 01, 2018= R av fistula - ANESTHESIA Hx Anesthesia: Yes Hx Anesthesia Reactions: No Meds Allergies/Adverse Reactions: Allergies Allergy/AdvReac Type Severity Reaction Status Date / Time No Known Allergies Allergy Verified 05/04/18 11:14 Physical Exam - Constitutional Appears: No Acute Distress - Head Exam Head Exam: ATRAUMATIC - Eye Exam Eye Exam: Normal appearance Pupil Exam: NORMAL ACCOMODATION - ENT Exam ENT Exam: Mucous Membranes Moist - Neck Exam Neck exam: Positive for: Full Rom - Respiratory Exam Respiratory Exam: Clear to Auscultation Bilateral - Cardiovascular Exam Cardiovascular Exam: REGULAR RHYTHM - GI/Abdominal Exam GI & Abdominal Exam: Normal Bowel Sounds - Rectal Exam Rectal Exam: Deferred - Exam Exam: NORMAL INSPECTION - Extremities Exam Extremities exam: Positive for: normal inspection - Back Exam Back exam: NORMAL INSPECTION - Neurological Exam Neurological exam: Altered - Psychiatric Exam Psychiatric exam: Flat Affect - Skin Skin Exam: Pallor Results - Vital Signs Recent Vital Signs: Last Vital Signs Temp 98 F 10/03/18 20:00 Pulse 79 10/03/18 20:00 Resp 20 10/03/18 20:00 BP 139/79 10/03/18 20:30 Pulse Ox 100 10/03/18 20:00 - Labs Result Diagrams: 10/03/18 15:43 10/03/18 15:43 Labs: Laboratory Results - last 24 hr 10/03/18 10/03/18 10/03/18 15:43 15:43 15:43 WBC 6.3 RBC 2.45 L Hgb 8.3 L D Hct 24.3 L MCV 99.2 H D MCH 34.0 H MCHC 34.3 RDW 14.6 H Plt Count 208 MPV 7.1 L Neut % (Auto) 53.8 Lymph % (Auto) 27.3 [place] % (Auto) 11.1 H Eos % (Auto) 6.7 H Baso % (Auto) 1.1 Neut # (Auto) 3.4 Lymph # (Auto) 1.7 [place] # (Auto) 0.7 Eos # (Auto) 0.4 Baso # (Auto) 0.1 PT 10.7 INR 1.0 APTT 37 H Sodium 137 Potassium 3.8 Chloride 96 L Carbon Dioxide 30 Anion Gap 14 BUN 42 H Creatinine 9.3 H* D Est GFR ( Amer) 7 Est GFR (Non-Af Amer) 5 Random Glucose 89 Calcium 8.7 Total Bilirubin 0.5 AST 35 ALT 33 Alkaline Phosphatase 80 Total Protein 7.6 Albumin 4.2 Globulin 3.4 Albumin/Globulin Ratio 1.2 Hepatitis A IgM Ab Hep Bs Antigen Hep B Core IgM Ab Hepatitis C Antibody 10/03/18 15:43 WBC RBC Hgb Hct MCV MCH MCHC RDW Plt Count MPV Neut % (Auto) Lymph % (Auto) [place] % (Auto) Eos % (Auto) Baso % (Auto) Neut # (Auto) Lymph # (Auto) [place] # (Auto) Eos # (Auto) Baso # (Auto) PT INR APTT Sodium Potassium Chloride Carbon Dioxide Anion Gap BUN Creatinine Est GFR ( Amer) Est GFR (Non-Af Amer) Random Glucose Calcium Total Bilirubin AST ALT Alkaline Phosphatase Total Protein Albumin Globulin Albumin/Globulin Ratio Hepatitis A IgM Ab Negative Hep Bs Antigen Negative Hep B Core IgM Ab Negative Hepatitis C Antibody Negative Assessment & Plan - Assessment and Plan (Free Text) Assessment: esrf on dialysis AMS ANEAMIA Plan: DIALYSIS - Date & Time Date: 10/03/18 Time: 21:13
--- NOTE | 2018-10-04 05:17 | CON ---
DATE: 10/03/2018 RENAL CONSULTATION LOCATION: The patient is located in the ER, room 6. REQUESTED BY: Liv Mcleod MD REASON FOR RENAL CONSULTATION: End-stage renal disease, continuation of hemodialysis. HISTORY OF PRESENT ILLNESS: Mr. Britt is an 78-year-old elderly very pleasant Citizen Of [place] male with a past medical history significant for longstanding hypertension, TIA, end-stage renal disease, coronary artery disease, CHF, status post left upper extremity AV fistula, on hemodialysis for the last one year who recently went on vacation to [facility] about more than a month ago, and the patient returned last night and unable to go back to the dialysis unit as the patient was discharged from the facility due to out of country for more than 30 days, and the patient was advised to go to the hospital for further evaluation and for hemodialysis treatment. The patient denies any chest pain, palpitation. Denies any fever or cough. The patient does complaint of generalized weakness. Denies any swelling of the legs. The patient claims his hemoglobin was low in [facility]. Denies any fever, cough. PAST MEDICAL HISTORY: Significant for longstanding hypertension, coronary artery disease, CHF, end-stage renal disease, on hemodialysis three times a week, poor left ventricular function, also status post cardiac cath. PAST SURGICAL HISTORY: Status post pacemaker placement and also left upper extremity AV fistula. ALLERGIES: NO KNOWN DRUG ALLERGIES. SOCIAL HISTORY: The patient was an ex-smoker, quit long time ago. No alcohol. No drug abuse. PERSONAL HISTORY: He is , and he has a very supportive son. FAMILY HISTORY: Not significant. HOME MEDICATIONS: Include Nephro-Kike 1 tablet daily, Crestor 10 mg at bedtime, metoprolol 25 mg p.o. daily, Plavix 75 mg p.o. daily, calcium acetate 667 mg p.o. t.i.d., aspirin 81 mg p.o. daily. REVIEW OF SYSTEMS: Significant for weakness and also anemia. All other review of systems are reviewed and are negative and also missed hemodialysis yesterday due to traveling overseas. PHYSICAL EXAMINATION: VITAL SIGNS: Physical exam as follows: Blood pressure 161/80, pulse 86, respirations 16, temperature 97.8, saturation 99. Height 5 feet 10 inches, weight is 135 pounds. GENERAL: Mr. Britt is an 78-year-old elderly Citizen Of [place] male, moderately built, moderately nourished, not in acute distress. HEENT: Pupils normal and reactive to light and accommodation. Conjunctivae slightly pale. Sclerae anicteric. Tongue is moist. Trachea is midline. LUNGS: Symmetric on both sides. Bilateral breath sounds present. Clear to auscultation. CARDIOVASCULAR SYSTEM: [place] at the fifth intercostal space midclavicular line. S1, S2 audible. No murmur or gallop. ABDOMEN: Normal in appearance. Soft, tympanitic. No guarding. No rigidity. No hepatosplenomegaly. CENTRAL NERVOUS SYSTEM: The patient is alert, awake, oriented x3. Nonfocal neuro examination. Cranial nerves II through XII grossly intact. Sensory and motor system is within normal limits. EXTREMITIES: No cyanosis, no clubbing, no edema. LABORATORY DATA: His laboratory data include as follows: As of 10/03/2018, WBC 6.3, hemoglobin 8.3, hematocrit is 24.3, platelets 218. PT 10.7 and PTT 37. Sodium 137, potassium 3.7, chloride 96, CO2 of 30, BUN 42, creatinine 9.3, glucose 89, calcium 8.7. Total bili 0.5, AST 35, ALT 33, alkaline phosphatase 80, total protein 7.6, albumin is 4.2. Hepatitis C antibody IgM is negative, hepatitis B surface antigen negative. Core antibody IgM is negative. Hepatitis C antibody is negative. Chest x-ray report is pending. IMPRESSION: In summary, Mr. Britt is an 78-year-old elderly Citizen Of [place] male with a history of hypertension, cardiomyopathy, congestive heart failure, status post pacemaker placement with ejection fraction 20%, diastolic dysfunction, on hemodialysis three times a week Monday, , and Monday who recently traveled to [facility] for more than a month and returned last night, unable to go back to his dialysis unit as patient was discharged from the facility due to more than the 30 days as per the facility protocol, and the patient was advised to go to the hospital for a hemodialysis treatment. 1. End-stage renal disease. Continue hemodialysis three times a week. We will schedule for hemodialysis today. 2. Cardiomyopathy, status post pacemaker, asymptomatic. 3. Hypertension. 4. Anemia secondary to end-stage renal disease, rule out iron-deficiency anemia. Check iron, TIBC, ferritin, and also we will give Ferrlecit 125 mg x1 dose post dialysis and also Epogen 20,000 units x1 dose and Zemplar 2 mcg x1 dose during dialysis. We will also request social service evaluation for referral to outpatient hemodialysis unit at [facility] which is close to the patient's home. We will follow with you. Thank you for allowing me to participate in your patient's care. Also low sodium, low potassium diet, and continue phosphate binders also 1 tablet p.o. t.i.d. with food. Janet Foster MD
[2018-10-04] MEDS: Multivitamin Vitamin B Complex (Nephro-Vite) Tab PO SCH (08:23)
--- NOTE | 2018-10-04 09:05 | RAD ---
Chest x-ray single frontal view HISTORY: Congestive heart failure. Comparison: 05/01/2018 Findings: Biapical pleural thickening with upper lobe granulomatous changes. Mild venous congestion. Enlarged ectatic aorta with atherosclerotic calcification at the aortic knob. Mild cardiomegaly. Left-sided pacemaker. Degenerative changes in the spine and shoulders. Impression: Biapical pleural thickening with upper lobe granulomatous changes. Mild venous congestion. Enlarged ectatic aorta with atherosclerotic calcification at the aortic knob. Mild cardiomegaly. Left-sided pacemaker.
[2018-10-04] MEDS: Ferric Sodium Gluconat Complex 125 MG in Sodium Chloride 0.9% 100 ML IVPB SCH (09:48)
[2018-10-04] MEDS ORDERED: Ferric Sodium Gluconat Complex 62.5 mg/5 ml Vial IVPB SCH (10:00)
--- NOTE | 2018-10-04 11:41 | CP.PCM.PN ---
Subjective - Date & Time of Evaluation Date of Evaluation: 10/04/18 Time of Evaluation: 11:41 - Subjective Subjective: pt is seen and examined, follow up consult is dictated #[id number] Objective - Vital Signs/Intake and Output Vital Signs (last 24 hours): Temp Pulse Resp BP Pulse Ox 98.1 F 75 20 145/79 100 10/04/18 07:28 10/04/18 07:28 10/04/18 07:28 10/04/18 07:28 10/04/18 07:28 - Medications Medications: Current Medications Heparin Sodium (Porcine) (Heparin) 5,000 units SC Q12 [facility] Last Admin: 10/04/18 09:47 Dose: 5,000 units Ferric Sodium Gluconate Complex 125 mg/ Sodium Chloride 110 mls @ 100 mls/hr IVPB DAILY [facility] Stop: 10/12/18 10:01 Last Admin: 10/04/18 09:48 Dose: 100 mls/hr Influenza Virus Vaccine (Flucelvax Quad 3909-7627 Syr) 60 mcg IM .ONCE ONE Stop: 10/06/18 10:01 Pneumococcal Polyvalent Vaccine (Pneumovax 23 Vaccine) 0.5 ml IM .ONCE ONE Stop: 10/06/18 10:01 Sevelamer Carbonate (Renvela) 800 mg PO TIDCC [facility] Last Admin: 10/04/18 08:23 Dose: 800 mg Vitamin B Complex/Vit C/Folic Acid (Nephro-Kike) 1 tab PO 0800 [facility] Last Admin: 10/04/18 08:23 Dose: 1 tab - Labs Labs: 10/03/18 15:43 10/03/18 15:43 PT 10.7 SECONDS (9.7-12.2) 10/03/18 15:43 INR 1.0 10/03/18 15:43 APTT 37 SECONDS (21-34) H 10/03/18 15:43
[2018-10-04] MEDS ORDERED: Epoetin Alfa Dialysis 20000 UNIT/ML Inj IV ONE (17:28)
[2018-10-04] MEDS ORDERED: Paricalcitol 2 mcg/ml Inj IV ONE (17:29)
[2018-10-04 17:38] LABS: SQUAMOUS EPITHIAL < 1 /hpf (0-5); URINE BILIRUBIN NEGATIVE (NEGATIVE); URINE BLOOD NEGATIVE (NEGATIVE); URINE CLARITY Clear (Clear); URINE COLOR Yellow (YELLOW); URINE GLUCOSE (UA) 1+ mg/dL (Normal); URINE LEUKOCYTE ESTERASE NEG Leu/uL (Negative); URINE PROTEIN 2+ mg/dL (NEGATIVE); URINE UROBILINOGEN NORMAL mg/dL (0.2-1.0)
--- NOTE | 2018-10-04 19:19 | CP.PCM.PN ---
Subjective - Date & Time of Evaluation Date of Evaluation: 10/04/18 Time of Evaluation: 19:17 - Subjective Subjective: pt having dialysis now no c/o has aneamia Objective - Vital Signs/Intake and Output Vital Signs (last 24 hours): Temp Pulse Resp BP Pulse Ox 97.5 F L 86 20 139/68 99 10/04/18 19:01 10/04/18 19:01 10/04/18 19:01 10/04/18 19:01 10/04/18 19:01 Intake and Output: 10/04/18 10/05/18 18:59 06:59 Intake Total 460 Balance 460 - Medications Medications: Current Medications Heparin Sodium (Porcine) (Heparin) 5,000 units SC Q12 [facility] Last Admin: 10/04/18 09:47 Dose: 5,000 units Ferric Sodium Gluconate Complex 125 mg/ Sodium Chloride 110 mls @ 100 mls/hr IVPB DAILY [facility] Stop: 10/12/18 10:01 Last Admin: 10/04/18 09:48 Dose: 100 mls/hr Influenza Virus Vaccine (Flucelvax Quad 1643-8020 Syr) 60 mcg IM .ONCE ONE Stop: 10/06/18 10:01 Pneumococcal Polyvalent Vaccine (Pneumovax 23 Vaccine) 0.5 ml IM .ONCE ONE Stop: 10/06/18 10:01 Sevelamer Carbonate (Renvela) 800 mg PO TIDCC [facility] Last Admin: 10/04/18 19:14 Dose: 800 mg Vitamin B Complex/Vit C/Folic Acid (Nephro-Kike) 1 tab PO 0800 [facility] Last Admin: 10/04/18 08:23 Dose: 1 tab - Labs Labs: 10/03/18 15:43 10/03/18 15:43 PT 10.7 SECONDS (9.7-12.2) 10/03/18 15:43 INR 1.0 10/03/18 15:43 APTT 37 SECONDS (21-34) H 10/03/18 15:43 - Constitutional Appears: Non-toxic - Head Exam Head Exam: NORMAL INSPECTION - Eye Exam Eye Exam: Normal appearance Pupil Exam: NORMAL ACCOMODATION - ENT Exam ENT Exam: Normal Exam - Neck Exam Neck Exam: Full ROM - Respiratory Exam Respiratory Exam: Clear to Ausculation Bilateral - Cardiovascular Exam Cardiovascular Exam: REGULAR RHYTHM - GI/Abdominal Exam GI & Abdominal Exam: Normal Bowel Sounds - Rectal Exam Rectal Exam: NORMAL INSPECTION - Exam Exam: NORMAL INSPECTION - Extremities Exam Extremities Exam: Normal Inspection - Back Exam Back Exam: NORMAL INSPECTION - Neurological Exam Neurological Exam: Awake, Oriented x3 - Psychiatric Exam Psychiatric exam: Normal Affect - Skin Skin Exam: Pallor Assessment and Plan - Assessment and Plan (Free Text) Assessment: esrf on dialysis aneamia Plan: as per dr longoria
--- NOTE | 2018-10-05 00:35 | PN ---
DATE: 10/04/2018 FOLLOWUP RENAL CONSULTATION LOCATION: The patient is located in room 359, bed B. REQUESTED BY: Liv Mcleod MD REASON FOR FOLLOWUP: End-stage renal disease, continuation of hemodialysis. SUBJECTIVE: Mr. Britt is an 78-year-old elderly very pleasant [place] male with a past medical history significant for longstanding hypertension, coronary artery disease, cardiomyopathy, CHF, end-stage renal disease, status post pacemaker placement, who was receiving hemodialysis 3 times a week, Monday, , Monday, for the last 1 year in outpatient hemodialysis unit in [facility] in [facility], and went to the [facility] in 08/2018 and came back after 30 days, and the patient was advised to go to the hospital for the hemodialysis treatment as the patient was discharged from the facility when more than 30 days of vacation. The patient is not incompliant. Denies any chest pain or palpitation. Denies any fever or cough. No abdominal pain. No nausea, vomiting, diarrhea. Complains of slight weakness. PHYSICAL EXAMINATION: VITAL SIGNS: As follows: Blood pressure this morning 145/79, pulse 75, respiration 20, temperature 98.1, saturation 100%. Height 4 feet 10 inches, weight is 132 pounds. GENERAL: Mr. Britt is an 78-year-old elderly male, moderately built, moderately nourished, not in acute distress. HEENT: Pupils normal, reactive to light and accommodation. Conjunctivae pink. Sclerae anicteric. Tongue is moist. Trachea is midline. LUNGS: Symmetric on both sides. Bilateral breath sounds present. Clear to auscultation. CARDIOVASCULAR SYSTEM: [place] at the fifth intercostal space, midclavicular line. S1 and S2 audible. No murmur or gallop. ABDOMEN: Normal in appearance, soft, tympanitic. No guarding. No rigidity. No hepatosplenomegaly. CENTRAL NERVOUS SYSTEM: The patient is alert, awake, oriented x3. Nonfocal neuro examination. Cranial nerves II-XII grossly intact. Sensory and motor system is within normal limits. EXTREMITIES: No cyanosis, no clubbing, no edema. CURRENT MEDICATIONS: Include as follows: Subcu heparin 5000 units every 12 hours, Nephro-Kike 1 tablet daily, and Renvela 800 mg p.o. t.i.d. LABORATORY DATA: Include as follows: As of 10/03/2018, hemoglobin 8.3, hematocrit 24.3, platelets 208, WBC 6.3. Sodium 137, potassium 3.8, chloride 96, CO2 30, BUN 42, creatinine 9.3, glucose 89, calcium 8.7. Hepatitis C antibody IgM is negative, hepatitis B surface antigen negative, hepatitis B core antibody IgM is negative, hepatitis C antibody is negative. Urinalysis, yellow, clear, pH 8, specific gravity 1.009, protein 2+, glucose 1+, ketone negative, blood negative, nitrite negative, bilirubin negative, urobilinogen normal, leukocyte esterase negative, wbc less than 1, rbc 1. ASSESSMENT: In summary, Mr. Britt is an 78-year-old elderly [place] male with a history of hypertension, cardiomyopathy, end-stage renal disease, on hemodialysis three times a week Monday, , Monday, who was admitted after coming back from vacation for more than 1 month. 1. End-stage renal disease. Continue hemodialysis three times a week, Monday, , Monday. 2. Anemia secondary to renal failure, rule out iron-deficiency anemia. 3. Hypertension. 4. Cardiomyopathy. PLAN: Continue his current home medications. Add metoprolol 25 mg p.o. daily, Plavix 75 mg p.o. daily, aspirin 81 mg daily, and Crestor 10 mg at bedtime. Continue Epogen three times a week during hemodialysis. We will follow with you. Thank you for allowing me to participate in your patient's care. Janet Foster MD
[2018-10-05] MEDS: Multivitamin Vitamin B Complex (Nephro-Vite) Tab PO SCH (08:24)
--- NOTE | 2018-10-05 09:08 | CP.PCM.PN ---
Subjective - Date & Time of Evaluation Date of Evaluation: 10/05/18 Time of Evaluation: 09:08 - Subjective Subjective: pt is seen and examined, follow up consult is dictated #[id number] Objective - Vital Signs/Intake and Output Vital Signs (last 24 hours): Temp Pulse Resp BP Pulse Ox 98.2 F 72 20 210/115 H 96 10/05/18 08:02 10/05/18 08:02 10/05/18 08:02 10/05/18 08:02 10/05/18 08:02 Intake and Output: 10/05/18 10/05/18 06:59 18:59 Intake Total 120 Balance 120 - Medications Medications: Current Medications Heparin Sodium (Porcine) (Heparin) 5,000 units SC Q12 [facility] Last Admin: 10/04/18 21:52 Dose: 5,000 units Ferric Sodium Gluconate Complex 125 mg/ Sodium Chloride 110 mls @ 100 mls/hr IVPB DAILY [facility] Stop: 10/12/18 10:01 Last Admin: 10/04/18 09:48 Dose: 100 mls/hr Influenza Virus Vaccine (Flucelvax Quad [id number] Syr) 60 mcg IM .ONCE ONE Stop: 10/06/18 10:01 Pneumococcal Polyvalent Vaccine (Pneumovax 23 Vaccine) 0.5 ml IM .ONCE ONE Stop: 10/06/18 10:01 Sevelamer Carbonate (Renvela) 800 mg PO TIDCC [facility] Last Admin: 10/05/18 08:24 Dose: 800 mg Vitamin B Complex/Vit C/Folic Acid (Nephro-Kike) 1 tab PO 0800 [facility] Last Admin: 10/05/18 08:24 Dose: 1 tab - Labs Labs: 10/03/18 15:43 10/03/18 15:43 PT 10.7 SECONDS (9.7-12.2) 10/03/18 15:43 INR 1.0 10/03/18 15:43 APTT 37 SECONDS (21-34) H 10/03/18 15:43
--- NOTE | 2018-10-05 10:44 | CP.PCM.PN ---
Subjective - Date & Time of Evaluation Date of Evaluation: 10/05/18 Time of Evaluation: 10:42 - Subjective Subjective: pt doesnot c/o had dialysis yesterday seen in bed comfortable Objective - Vital Signs/Intake and Output Vital Signs (last 24 hours): Temp Pulse Resp BP Pulse Ox 98.2 F 72 20 210/115 H 96 10/05/18 08:02 10/05/18 08:02 10/05/18 08:02 10/05/18 08:02 10/05/18 08:02 Intake and Output: 10/05/18 10/05/18 06:59 18:59 Intake Total 120 Balance 120 - Medications Medications: Current Medications Heparin Sodium (Porcine) (Heparin) 5,000 units SC Q12 [facility]S [facility]CLUDE 234 BEDS AT THE [facility] Last Admin: 10/04/18 21:52 Dose: 5,000 units Ferric Sodium Gluconate Complex 125 mg/ Sodium Chloride 110 mls @ 100 mls/hr IVPB DAILY COUNTS INCLUDE 234 BEDS AT THE [facility] Stop: 10/12/18 10:01 Last Admin: 10/04/18 09:48 Dose: 100 mls/hr Influenza Virus Vaccine (Flucelvax Quad [id number] Syr) 60 mcg IM .ONCE ONE Stop: 10/06/18 10:01 Pneumococcal Polyvalent Vaccine (Pneumovax 23 Vaccine) 0.5 ml IM .ONCE ONE Stop: 10/06/18 10:01 Sevelamer Carbonate (Renvela) 800 mg PO TIDCC COUNTS INCLUDE 234 BEDS AT THE [facility] Last Admin: 10/05/18 08:24 Dose: 800 mg Vitamin B Complex/Vit C/Folic Acid (Nephro-Kike) 1 tab PO 0800 COUNTS INCLUDE 234 BEDS AT THE [facility] Last Admin: 10/05/18 08:24 Dose: 1 tab - Labs Labs: 10/03/18 15:43 10/03/18 15:43 PT 10.7 SECONDS (9.7-12.2) 10/03/18 15:43 INR 1.0 10/03/18 15:43 APTT 37 SECONDS (21-34) H 10/03/18 15:43 - Constitutional Appears: Non-toxic - Head Exam Head Exam: NORMAL INSPECTION - Eye Exam Eye Exam: Normal appearance Pupil Exam: NORMAL ACCOMODATION - ENT Exam ENT Exam: Normal Exam - Neck Exam Neck Exam: Full ROM - Respiratory Exam Respiratory Exam: Clear to Ausculation Bilateral - Cardiovascular Exam Cardiovascular Exam: REGULAR RHYTHM - GI/Abdominal Exam GI & Abdominal Exam: Normal Bowel Sounds - Extremities Exam Extremities Exam: Normal Inspection - Back Exam Back Exam: NORMAL INSPECTION - Neurological Exam Neurological Exam: Normal Gait - Psychiatric Exam Psychiatric exam: Normal Affect - Skin Skin Exam: Pallor Assessment and Plan - Assessment and Plan (Free Text) Assessment: esrf aneamia Plan: cont med awaite aarangement for out pt dialysis
[2018-10-05] MEDS: Ferric Sodium Gluconat Complex 125 MG in Sodium Chloride 0.9% 100 ML IVPB SCH (10:54)
[2018-10-05] MEDS ORDERED: Vancomycin 1 gm/NS 200 ml 1 GM/200 ML BAG IVPB ONE (18:00)
[2018-10-05] MEDS ORDERED: Vancomycin 1 gm/NS 200 ml 1 GM/200 ML BAG IVPB SCH (18:00)
--- NOTE | 2018-10-05 19:39 | CP.PCM.CON ---
History of Present Illness - History of Present Illness History of Present Illness: 78 yo male admitted for emergent Dialysis due to CKD- having missed HD after recent trip to [facility] and lacking a dialysis appointment Now referred for ID eval due to high fever Source unclear PMH HTN CKD s/p PPM Review of Systems - Review of Systems All systems: reviewed and no additional remarkable complaints except - Constitutional Constitutional: As Per HPI - EENT Eyes: absent: As Per HPI, Blind Spots, Blurred Vision, Change in Vision, Decreased Night Vision, Diplopia, Discharge, Dry Eye, Exophthalmos, Floaters, Irritation, Itchy Eyes, Loss of Peripheral Vision, Pain, Photophobia, Requires Corrective Lenses, Sees Flashes, Spots in Vision, Tunnel Vision, Other Visual Disturbances, Loss of Vision, Other Ears: absent: As Per HPI, Decreased Hearing, Ear Discharge, Ear Pain, Tinnitus, Abnormal Hearing, Disequilibrium, Dizziness, Other Nose/Mouth/Throat: absent: As Per HPI, Epistaxis, Nasal Congestion, Nasal Discharge, Nasal Obstruction, Nasal Trauma, Nose Pain, Post Nasal Drip, Sinus Pain, Sinus Pressure, Bleeding Gums, Change in Voice, Dental Pain, Dry Mouth, Dysphagia, Halitosis, Hoarsness, Lip Swelling, Mouth Lesions, Mouth Pain, Odynophagia, Sore Throat, Throat Swelling, Tongue Swelling, Facial Pain, Neck Pain, Neck Mass, Other - Cardiovascular Cardiovascular: As Per HPI - Respiratory Respiratory: absent: As Per HPI, Cough, Dyspnea, Hemoptysis, Dyspnea on Exertion, Wheezing, Snoring, Stridor, Pain on Inspiration, Chest Congestion, Excessive Mucous Production, Change in Mucous Color, Pain with Coughing, Other - Gastrointestinal Gastrointestinal: absent: As Per HPI, Abdominal Pain, Belching, Bloating, Change in Bowel Habits, Change in Stool Character, Coffee Ground Emesis, Constipation, Cramping, Diarrhea, Dyspepsia, Dysphagia, Early Satiety, Excessive Flatus, Fecal Incontinence, Heartburn, Hematemesis, Hematochezia, Loose Stools, Melena, Nausea, Odynophagia, Temesmus, Vomiting, Other - Genitourinary Genitourinary: absent: As Per HPI, Change in Urinary Stream, Difficulty Urinating, Dysuria, Flank Pain, Hematuria, Pyuria, Nocturia, Urinary Incontinence, Urinary Frequency, Urinary Hesitance, Urinary Urgency, Voiding Freq/Small Amts, Freq UTI, Hx Renal/Bladder Calculi, Hx /Renal Surgery, Bladder Distension, Other - Musculoskeletal Musculoskeletal: absent: As Per HPI, Abnormal Gait, Arthralgias, Atrophy, Back Pain, Deformity, Joint Swelling, Limited Range of Motion, Loss of Height, Muscle Cramps, Muscle Weakness, Myalgias, Neck Pain, Numbness, Radiating Pain into Limb, Stiffness, Tingling, Other - Integumentary Integumentary: absent: As Per HPI, Acne, Alopecia, Bleeding Lesions, Change in Hair, Change in Nails, Change in Pigmentation, Changing Lesions, Dry Skin, Erythema, Furuncle, Hirsutism, Lesions, New Lesions, Non-Healing Lesions, Photosensitivity, Pruritus, Rash, Skin Pain, Skin Ulcer, Sores, Striae, Swelling, Unusual Bruising, Wounds, Jaundice, Other - Neurological Neurological: absent: As Per HPI, Abnormal Gait, Abnormal Hearing, Abnormal Movements, Abnormal Speech, Behavioral Changes, Burning Sensations, Confusion, Convulsions, Disequilibrium, Dizziness, Numbness, Focal Weakness, Frequent F alls, Headaches, Lack of Coordination, Loss of Vision, Memory Loss, Paresthesias, Radicular Pain, Restless Legs, Sensory Deficit, Syncope, Tingling, Tremor, Vertigo, Weakness, Other Visual Disturbances, Other - Psychiatric Psychiatric: absent: As Per HPI, Abnormal Sleep Pattern, Anhedonia, Anxiety, Auditory Hallucinations, Behavioral Changes, Change in Appetite, Change in Libido, Confusion, Depression, Difficulty Concentrating, Hallucinations, Homicidal Ideation, Hopelessness, Irritability, Memory Loss, Mood Swings, Panic Attacks, Paranoia, Suicidal Ideation, Visual Hallucinations, Tactile Hallucinations, Other - Endocrine Endocrine: absent: As Per HPI, Change in Body Appearance, Change in Libido, Cold Intolorance, Deepening of Voice, Excessive Sweating, Fatigue, Flushing, Heat Intolorance, Increase in Ring/Shoe/Hat Size, Palpitations, Polydipsia, Polyphagia, Polyuria, Other - Hematologic/Lymphatic Hematologic: absent: As Per HPI, Easy Bleeding, Easy Bruising, Lymphadenopathy, Other Past Patient History - Past Social History Smoking Status: Never Smoked - CARDIAC Hx Cardiac Disorders: Yes Hx Internal Defibrillator: Yes Other/Comment: heart failure - RENAL Hx Chronic Kidney Disease: Yes - MUSCULOSKELETAL/RHEUMATOLOGICAL Hx Falls: No - PSYCHIATRIC Hx Substance Use: No - SURGICAL HISTORY Hx Surgeries: Yes Other/Comment: RtArchana ramirez catheter, AICD. may 01, 2018= R av fistula - ANESTHESIA Hx Anesthesia: Yes Hx Anesthesia Reactions: No Meds Allergies/Adverse Reactions: Allergies Allergy/AdvReac Type Severity Reaction Status Date / Time No Known Allergies Allergy Verified 05/04/18 11:14 - Medications Medications: Current Medications Acetaminophen (Tylenol 325mg Tab) 650 mg PO Q6 PRN PRN Reason: Fever >100.4 F Last Admin: 10/05/18 17:45 Dose: 650 mg Heparin Sodium (Porcine) (Heparin) 5,000 units SC Q12 [facility] Last Admin: 10/05/18 10:53 Dose: 5,000 units Ferric Sodium Gluconate Complex 125 mg/ Sodium Chloride 110 mls @ 100 mls/hr IVPB DAILY [facility] Stop: 10/12/18 10:01 Last Admin: 10/05/18 10:54 Dose: 100 mls/hr Ceftriaxone Sodium 1 gm/ (Sodium Chloride) 100 mls @ 100 mls/hr IVPB DAILY [facility]; Protocol Last Admin: 10/05/18 18:13 Dose: 100 mls/hr Influenza Virus Vaccine (Flucelvax Quad [id number] Syr) 60 mcg IM .ONCE ONE Stop: 10/06/18 10:01 Pneumococcal Polyvalent Vaccine (Pneumovax 23 Vaccine) 0.5 ml IM .ONCE ONE Stop: 10/06/18 10:01 Sevelamer Carbonate (Renvela) 800 mg PO TIDCC [facility] Last Admin: 10/05/18 17:00 Dose: 800 mg Vitamin B Complex/Vit C/Folic Acid (Nephro-Kike) 1 tab PO 0800 [facility] Last Admin: 10/05/18 08:24 Dose: 1 tab Physical Exam - Constitutional Appears: Non-toxic, Chronically Ill - Head Exam Head Exam: NORMOCEPHALIC - Eye Exam Eye Exam: absent: Scleral icterus - ENT Exam ENT Exam: Mucous Membranes Dry - Neck Exam Neck exam: Negative for: Lymphadenopathy - Respiratory Exam Respiratory Exam: Decreased Breath Sounds - Cardiovascular Exam Cardiovascular Exam: REGULAR RHYTHM, +S1, +S2 - GI/Abdominal Exam GI & Abdominal Exam: Diminished Bowel Sounds, Soft. absent: Tenderness - Rectal Exam Rectal Exam: Deferred - Exam Exam: NORMAL INSPECTION - Extremities Exam Extremities exam: Negative for: pedal edema - Back Exam Back exam: absent: CVA tenderness (L), CVA tenderness (R) - Neurological Exam Neurological exam: Alert, CN II-XII Intact, Oriented x3, Reflexes Normal - Psychiatric Exam Psychiatric exam: Normal Mood - Skin Skin Exam: Dry Results - Vital Signs Recent Vital Signs: Last Vital Signs Temp 101.4 F H 10/05/18 17:45 Pulse 102 H 10/05/18 16:00 Resp 20 10/05/18 16:00 BP 144/71 10/05/18 16:00 Pulse Ox 98 10/05/18 16:00 - Labs Result Diagrams: 10/03/18 15:43 10/03/18 15:43 Assessment & Plan (1) Fever Status: Acute (2) ESRD (end stage renal disease) on dialysis Status: Acute - Assessment and Plan (Free Text) Assessment: r/o Influenza r/o bacterial sepsis started IV antibiotics Plan: check for Influenza
--- NOTE | 2018-10-06 01:53 | PN ---
DATE: 10/05/2018 FOLLOWUP RENAL CONSULTATION LOCATION: The patient is located in room 359, bed B. REQUESTED BY: Liv Mcleod MD REASON FOR FOLLOWUP: End-stage renal disease, continuation of hemodialysis. SUBJECTIVE: Mr. Britt is an 78-year-old elderly [place] male with a past medical history significant for longstanding hypertension, cardiomyopathy, coronary artery disease, status post cardiac cath, status post pacemaker placement, CHF, end-stage renal disease, on hemodialysis three times a week of Monday, and Monday for the last one year who was admitted after coming back from vacation for more than one month and unable to go back to the dialysis center. The patient was advised to go to the hospital for further management and continuation of hemodialysis. The patient denies any chest pain or palpitation. Denies any fever or cough. No abdominal pain. No nausea, vomiting, or diarrhea. PHYSICAL EXAMINATION: VITAL SIGNS: As follows: Blood pressure 144/71, pulse 102, respirations 20, temperature 101.9, this afternoon and this morning, his temperature is 98.2. Height 4 feet 10 inches. Weight is 132 pounds. GENERAL: Mr. Britt is an 78-year-old elderly male, moderately built, moderately nourished, not in acute distress. HEENT: Pupils are normal and reactive to light and accommodation. Conjunctivae pink. Sclerae anicteric. Tongue is moist. Trachea is midline. LUNGS: Symmetric on both sides. Bilateral breath sounds present. Clear to auscultation. CARDIOVASCULAR SYSTEM: [place] at the fifth intercostal space, midclavicular line. S1 and S2 audible. No murmur or gallop. ABDOMEN: Normal in appearance, soft, tympanitic. No guarding. No rigidity. No hepatosplenomegaly. CENTRAL NERVOUS SYSTEM: The patient is alert, awake and oriented x3. Nonfocal neuro examination. Cranial nerves II through XII grossly intact. Sensory and motor system is within normal limits. EXTREMITIES: No cyanosis, no clubbing, no edema. MEDICATIONS: His current medications include as follows: Rocephin 1 g daily, influenza vaccine x1, subcu heparin 4000 units every 12 hours, Nephro-Kike one tablet daily, Pneumovax, Renvela 800 mg p.o. t.i.d., Tamiflu 75 mg p.o. b.i.d., Tylenol, vancomycin 1 g IV piggyback every other day. LABORATORY DATA: No new labs available. Influenza A and B are negative. Chest x-ray as of 10/03/2018: Mild cardiomegaly, left-sided pacemaker, mild venous congestion, biapical pleural thickening with upper lobe granulomatous changes. Repeat chest x-ray this evening is pending. ASSESSMENT AND PLAN: In summary, Mr. Britt is an 78-year-old elderly male with a history of hypertension, end-stage renal disease, coronary artery disease, cardiomyopathy, congestive heart failure, status post pacemaker placement who recently came from [facility], unable to go back to his dialysis center as the patient was discharged from the center. 1. End-stage renal disease. Continue hemodialysis three times a week on Monday, and Monday. 2. Fever, rule out viral syndrome. Check complete blood count and comprehensive metabolic panel in the morning and follow up with chest x-ray report. Continue intravenous antibiotics, vancomycin, and Rocephin. Influenza A is negative. 3. Hypertension. Blood pressure is stable. 4. Coronary artery disease. Continue metoprolol 25 mg daily and also Plavix. Thank you for allowing me to participate in your patient's care. Awaiting for the outpatient hemodialysis unit placement. The patient was not accepted to his previous unit as his insurance is out of network for the facility. Janet Foster MD
--- NOTE | 2018-10-06 08:58 | RAD ---
Date of service: 10/05/2018 HISTORY: fever COMPARISON: 10/03/2018. FINDINGS: LUNGS: The lungs are well inflated and clear. PLEURA: No pleural effusions or pneumothorax. CARDIOVASCULAR: The heart is normal in size. There is unfolding of the aorta. There is stable position of left-sided AICD. There are aortic atherosclerotic calcifications present. OSSEOUS STRUCTURES: Within normal limits for the patient's age. VISUALIZED UPPER ABDOMEN: Normal. OTHER FINDINGS: None. IMPRESSION: No active pulmonary disease.
[2018-10-06] MEDS: Multivitamin Vitamin B Complex (Nephro-Vite) Tab PO SCH (09:00)
[2018-10-06] MEDS ORDERED: Pneumococcal 23-Valent Vaccine IM ONE (10:00)
[2018-10-06] MEDS ORDERED: Influenza Vaccine 60 mcg/0.5 mL SYR (4YR UP) IM ONE (10:00)
[2018-10-06] MEDS: Ferric Sodium Gluconat Complex 125 MG in Sodium Chloride 0.9% 100 ML IVPB SCH (11:00)
--- NOTE | 2018-10-06 11:37 | CP.PCM.PN ---
Subjective - Date & Time of Evaluation Date of Evaluation: 10/06/18 Time of Evaluation: 11:35 - Subjective Subjective: sleepy comfotable Objective - Vital Signs/Intake and Output Vital Signs (last 24 hours): Temp Pulse Resp BP Pulse Ox 100.5 F H 95 H 20 130/70 97 10/06/18 09:28 10/06/18 08:35 10/06/18 08:35 10/06/18 09:29 10/06/18 08:35 Intake and Output: 10/06/18 10/06/18 06:59 18:59 Intake Total 500 Output Total 100 Balance 400 - Medications Medications: Current Medications Acetaminophen (Tylenol 325mg Tab) 650 mg PO Q6 PRN PRN Reason: Fever >100.4 F Last Admin: 10/06/18 09:28 Dose: 650 mg Clopidogrel Bisulfate (Plavix) 75 mg PO DAILY [facility] Last Admin: 10/06/18 09:29 Dose: 75 mg Heparin Sodium (Porcine) (Heparin) 5,000 units SC Q12 [facility] Last Admin: 10/06/18 09:29 Dose: 5,000 units Ferric Sodium Gluconate Complex 125 mg/ Sodium Chloride 110 mls @ 100 mls/hr IVPB DAILY [facility] Stop: 10/12/18 10:01 Last Admin: 10/05/18 10:54 Dose: 100 mls/hr Ceftriaxone Sodium 1 gm/ (Sodium Chloride) 100 mls @ 100 mls/hr IVPB DAILY [facility]; Protocol Last Admin: 10/06/18 10:42 Dose: 100 mls/hr Vancomycin/Sodium Chloride (Vancomycin 1 Gm/Ns 200 Ml) 1 gm in 200 mls @ 166.7 mls/hr IVPB QOD6 [facility]; Protocol Stop: 10/11/18 18:01 Metoprolol Tartrate (Lopressor) 25 mg PO DAILY [facility] Last Admin: 10/06/18 09:29 Dose: 25 mg Oseltamivir Phosphate (Tamiflu Cap) 75 mg PO BID [facility]; Protocol Stop: 10/10/18 19:41 Last Admin: 10/06/18 09:27 Dose: 75 mg Sevelamer Carbonate (Renvela) 800 mg PO TIDCC [facility] Last Admin: 10/06/18 09:00 Dose: 800 mg Vitamin B Complex/Vit C/Folic Acid (Nephro-Kike) 1 tab PO 0800 [facility] Last Admin: 10/06/18 09:00 Dose: 1 tab - Labs Labs: 10/03/18 15:43 10/03/18 15:43 PT 10.7 SECONDS (9.7-12.2) 10/03/18 15:43 INR 1.0 10/03/18 15:43 APTT 37 SECONDS (21-34) H 10/03/18 15:43 - Constitutional Appears: Non-toxic - Head Exam Head Exam: NORMAL INSPECTION - Eye Exam Eye Exam: Normal appearance - ENT Exam ENT Exam: Mucous Membranes Moist - Neck Exam Neck Exam: Full ROM - Respiratory Exam Respiratory Exam: Decreased Breath Sounds - Cardiovascular Exam Cardiovascular Exam: REGULAR RHYTHM - GI/Abdominal Exam GI & Abdominal Exam: Normal Bowel Sounds - Rectal Exam Rectal Exam: NORMAL INSPECTION - Extremities Exam Extremities Exam: Normal Inspection - Back Exam Back Exam: NORMAL INSPECTION - Neurological Exam Neurological Exam: Awake, Oriented x3 - Psychiatric Exam Psychiatric exam: Normal Affect - Skin Skin Exam: Normal Color Assessment and Plan - Assessment and Plan (Free Text) Assessment: esrf Plan: cont dialysis arrangement for out pt dialysis
--- NOTE | 2018-10-06 13:47 | CP.PCM.PN ---
Subjective - Date & Time of Evaluation Date of Evaluation: 10/06/18 Time of Evaluation: 13:47 - Subjective Subjective: pt is seen and examined, follow up consult is dictated #[id number] for hd today decrease tamiflu to 30 mg po daily x 5 days Objective - Vital Signs/Intake and Output Vital Signs (last 24 hours): Temp Pulse Resp BP Pulse Ox 98.7 F 95 H 20 130/70 97 10/06/18 10:28 10/06/18 08:35 10/06/18 08:35 10/06/18 09:29 10/06/18 08:35 Intake and Output: 10/06/18 10/06/18 06:59 18:59 Intake Total 500 Output Total 100 Balance 400 - Medications Medications: Current Medications Acetaminophen (Tylenol 325mg Tab) 650 mg PO Q6 PRN PRN Reason: Fever >100.4 F Last Admin: 10/06/18 09:28 Dose: 650 mg Clopidogrel Bisulfate (Plavix) 75 mg PO DAILY [facility] Last Admin: 10/06/18 09:29 Dose: 75 mg Heparin Sodium (Porcine) (Heparin) 5,000 units SC Q12 [facility] Last Admin: 10/06/18 09:29 Dose: 5,000 units Ferric Sodium Gluconate Complex 125 mg/ Sodium Chloride 110 mls @ 100 mls/hr IVPB DAILY [facility] Stop: 10/12/18 10:01 Last Admin: 10/06/18 11:00 Dose: 100 mls/hr Ceftriaxone Sodium 1 gm/ (Sodium Chloride) 100 mls @ 100 mls/hr IVPB DAILY [facility]; Protocol Last Admin: 10/06/18 10:42 Dose: 100 mls/hr Vancomycin/Sodium Chloride (Vancomycin 1 Gm/Ns 200 Ml) 1 gm in 200 mls @ 166.7 mls/hr IVPB QOD6 [facility]; Protocol Stop: 10/11/18 18:01 Metoprolol Tartrate (Lopressor) 25 mg PO DAILY [facility] Last Admin: 10/06/18 09:29 Dose: 25 mg Oseltamivir Phosphate (Tamiflu Cap) 75 mg PO BID [facility]; Protocol Stop: 10/10/18 19:41 Last Admin: 10/06/18 09:27 Dose: 75 mg Sevelamer Carbonate (Renvela) 800 mg PO TIDCC [facility] Last Admin: 10/06/18 09:00 Dose: 800 mg Vitamin B Complex/Vit C/Folic Acid (Nephro-Kike) 1 tab PO 0800 [facility] Last Admin: 10/06/18 09:00 Dose: 1 tab - Labs Labs: 10/03/18 15:43 10/03/18 15:43 PT 10.7 SECONDS (9.7-12.2) 10/03/18 15:43 INR 1.0 10/03/18 15:43 APTT 37 SECONDS (21-34) H 10/03/18 15:43
[2018-10-06] MEDS: Vancomycin 1 gm/NS 200 ml 1 GM/200 ML BAG IVPB SCH (17:28)
--- NOTE | 2018-10-07 00:55 | PN ---
DATE: 10/06/2018 LOCATION: The patient is located in room 352, bed B. REQUESTED BY: Liv Mcleod MD REASON FOR FOLLOWUP: End-stage renal disease, continuation of hemodialysis, fever. HISTORY OF PRESENT ILLNESS: Mr. Britt is an 78-year-old elderly very pleasant [place] male with a past medical history significant for longstanding hypertension; cardiomyopathy, CHF, status post pacemaker placement; ESRD, on hemodialysis three times a week, Monday, , Monday; was admitted after he came back from vacation more than 1 month, unable to go back to his dialysis. The patient denies any complaints. No chest pain or palpitation. No fever. No cough. No abdominal pain. No nausea, vomiting, or diarrhea. The patient is eager to go back to the dialysis center. The patient also has a fever of 101.8 yesterday. Started on IV antibiotics; Rocephin and vancomycin. The patient is not in acute distress. PHYSICAL EXAMINATION: VITAL SIGNS: As follows, as of this morning, blood pressure 130/70, pulse 95, respirations 20, temperature 100.5, and saturation 97%. Height 4 feet 10 inches, weight is 132 pounds. GENERAL: Mr. Britt is an 78-year-old elderly [place] male, moderately built, moderately nourished, not in acute distress. HEENT: Pupils normal, reactive to light and accommodation. Conjunctivae pink. Sclerae anicteric. Tongue is moist. Trachea is midline. LUNGS: Symmetric on both sides. Bilateral breath sounds present. Left basal crackles present. CARDIOVASCULAR SYSTEM: [place] at the fifth intercostal space and midclavicular line. S1, S2 audible. No murmur or gallop. ABDOMEN: Normal in appearance, soft, tympanic. No guarding. No rigidity. No hepatosplenomegaly. CENTRAL NERVOUS SYSTEM: The patient is alert, awake, oriented x3. Nonfocal neuro examination. Cranial nerves II through XII grossly intact. Sensory and motor system are within normal limits. EXTREMITIES: No cyanosis, no clubbing, no edema. CURRENT MEDICATIONS: Include as follows: Rocephin 1 g daily, ferrous gluconate 125 mg daily, subcu heparin 5000 every 12 hours, Lopressor 25 mg p.o. daily, Nephro-Kike 1 tablet daily, Plavix 75 mg daily, Renvela 18 mg p.o. t.i.d., Tamiflu 75 mg p.o. b.i.d., Tylenol 325 mg p.o. daily, and vancomycin 1 g every other day. LABORATORY DATA: Include as follows: No new labs are available. Influenza A and B antibodies negative. ASSESSMENT AND PLAN: In summary, Mr. Britt is an 78-year-old elderly male with a past medical history significant for longstanding hypertension, cardiomyopathy, end-stage renal disease, status post pacemaker placement, was admitted after returning from vacation from [facility] for more than 1 month. Now, the patient has a fever 101.8. His blood culture x2 negative day one, and urine culture is negative as of 10/05/2018. 1. End-stage renal disease. Continue hemodialysis three times a week; Monday, , and Monday. 2. Hypertension. Blood pressure is stable. 3. Cardiomyopathy. 4. Fever. Rule out pneumonia. Chest x-ray is negative as of 10/05/2018. Continue antibiotics as per Infectious Disease recommendation; vancomycin and Rocephin, and we will decrease the Tamiflu to 30 mg orally daily due to renal failure. The patient is scheduled for hemodialysis today. We will follow with you. Thank you for allowing me to participate in your patient's care. Awaiting for outpatient hemodialysis unit placement. The patient was refused to outpatient hemodialysis unit at [facility] [place]. Janet Foster MD
[2018-10-07] MEDS: Multivitamin Vitamin B Complex (Nephro-Vite) Tab PO SCH (08:00)
--- NOTE | 2018-10-07 10:25 | CP.PCM.PN ---
Subjective - Date & Time of Evaluation Date of Evaluation: 10/07/18 Time of Evaluation: 10:23 - Subjective Subjective: pt seen in bed comfortable no c/o on dialysis waiting arrangement for out pt dialysis Objective - Vital Signs/Intake and Output Vital Signs (last 24 hours): Temp Pulse Resp BP Pulse Ox 98.8 F 80 20 127/65 95 10/07/18 08:10 10/07/18 08:10 10/07/18 08:10 10/07/18 08:10 10/07/18 08:10 Intake and Output: 10/07/18 10/07/18 06:59 18:59 Intake Total 600 Balance 600 - Medications Medications: Current Medications Acetaminophen (Tylenol 325mg Tab) 650 mg PO Q6 PRN PRN Reason: Fever >100.4 F Last Admin: 10/06/18 09:28 Dose: 650 mg Clopidogrel Bisulfate (Plavix) 75 mg PO DAILY [facility] Last Admin: 10/06/18 09:29 Dose: 75 mg Ferric Sodium Gluconate Complex 125 mg/ Sodium Chloride 110 mls @ 100 mls/hr IVPB DAILY [facility] Stop: 10/12/18 10:01 Last Admin: 10/06/18 11:00 Dose: 100 mls/hr Ceftriaxone Sodium 1 gm/ (Sodium Chloride) 100 mls @ 100 mls/hr IVPB DAILY [facility]; Protocol Last Admin: 10/06/18 10:42 Dose: 100 mls/hr Vancomycin/Sodium Chloride (Vancomycin 1 Gm/Ns 200 Ml) 1 gm in 200 mls @ 166.7 mls/hr IVPB QOD6 [facility]; Protocol Stop: 10/11/18 18:01 Last Admin: 10/06/18 17:28 Dose: 166.7 mls/hr Metoprolol Tartrate (Lopressor) 25 mg PO DAILY [facility] Last Admin: 10/06/18 09:29 Dose: 25 mg Oseltamivir Phosphate (Tamiflu Susp) 30 mg PO DAILY [facility]; Protocol Stop: 10/10/18 19:41 Sevelamer Carbonate (Renvela) 800 mg PO TIDCC [facility] Last Admin: 10/06/18 17:28 Dose: 800 mg Vitamin B Complex/Vit C/Folic Acid (Nephro-Kike) 1 tab PO 0800 [facility] Last Admin: 10/06/18 09:00 Dose: 1 tab - Labs Labs: 10/03/18 15:43 10/03/18 15:43 PT 10.7 SECONDS (9.7-12.2) 10/03/18 15:43 INR 1.0 10/03/18 15:43 APTT 37 SECONDS (21-34) H 10/03/18 15:43 - Constitutional Appears: Non-toxic - Head Exam Head Exam: ATRAUMATIC - Eye Exam Eye Exam: Normal appearance Pupil Exam: NORMAL ACCOMODATION - Neck Exam Neck Exam: Full ROM - Respiratory Exam Respiratory Exam: NORMAL BREATHING PATTERN - Cardiovascular Exam Cardiovascular Exam: REGULAR RHYTHM - GI/Abdominal Exam GI & Abdominal Exam: Normal Bowel Sounds - Rectal Exam Rectal Exam: NORMAL INSPECTION - Exam Exam: NORMAL INSPECTION - Extremities Exam Extremities Exam: Normal Inspection - Back Exam Back Exam: NORMAL INSPECTION - Neurological Exam Neurological Exam: Alert, Awake, Oriented x3 - Psychiatric Exam Psychiatric exam: Normal Affect - Skin Skin Exam: Normal Color, Pallor Assessment and Plan - Assessment and Plan (Free Text) Assessment: esrf aneamia Plan: cont curent treatment arrange for out pt dialysis
[2018-10-07] MEDS: Ferric Sodium Gluconat Complex 125 MG in Sodium Chloride 0.9% 100 ML IVPB SCH (11:00)
[2018-10-07] MEDS: Oseltamivir 6 MG/ML PO SCH (12:14)
--- NOTE | 2018-10-07 14:34 | CP.PCM.PN ---
Subjective - Date & Time of Evaluation Date of Evaluation: 10/07/18 Time of Evaluation: 09:00 - Subjective Subjective: fever resolved cultures neg thus far treated with Tamiflu empirically cont IV rx for 7 days total and tamiflu for 5 days ok to d/c isolation Objective - Vital Signs/Intake and Output Vital Signs (last 24 hours): Temp Pulse Resp BP Pulse Ox 98.8 F 80 20 128/75 95 10/07/18 08:10 10/07/18 08:10 10/07/18 08:10 10/07/18 12:14 10/07/18 08:10 Intake and Output: 10/07/18 10/07/18 06:59 18:59 Intake Total 600 Balance 600 - Medications Medications: Current Medications Acetaminophen (Tylenol 325mg Tab) 650 mg PO Q6 PRN PRN Reason: Fever >100.4 F Last Admin: 10/06/18 09:28 Dose: 650 mg Clopidogrel Bisulfate (Plavix) 75 mg PO DAILY [facility] Last Admin: 10/07/18 12:14 Dose: 75 mg Ferric Sodium Gluconate Complex 125 mg/ Sodium Chloride 110 mls @ 100 mls/hr IVPB DAILY [facility] Stop: 10/12/18 10:01 Last Admin: 10/07/18 11:00 Dose: 100 mls/hr Ceftriaxone Sodium 1 gm/ (Sodium Chloride) 100 mls @ 100 mls/hr IVPB [facility]ILY [facility]; Protocol Last Admin: 10/07/18 12:01 Dose: 100 mls/hr Vancomycin/Sodium Chloride (Vancomycin 1 Gm/Ns 200 Ml) 1 gm in 200 mls @ 166.7 mls/hr IVPB QOD6 [facility]; Protocol Stop: 10/11/18 18:01 Last Admin: 10/06/18 17:28 Dose: 166.7 mls/hr Metoprolol Tartrate (Lopressor) 25 mg PO DAILY [facility] Last Admin: 10/07/18 12:14 Dose: 25 mg Oseltamivir Phosphate (Tamiflu Susp) 30 mg PO DAILY [facility]; Protocol Stop: 10/10/18 19:41 Last Admin: 10/07/18 12:14 Dose: 30 gm Sevelamer Carbonate (Renvela) 800 mg PO TIDCC [facility] Last Admin: 10/07/18 12:14 Dose: 800 mg Vitamin B Complex/Vit C/Folic Acid (Nephro-Kike) 1 tab PO 0800 [facility] Last Admin: 10/07/18 08:00 Dose: 1 tab - Labs Labs: 10/03/18 15:43 10/03/18 15:43 PT 10.7 SECONDS (9.7-12.2) 10/03/18 15:43 INR 1.0 10/03/18 15:43 APTT 37 SECONDS (21-34) H 10/03/18 15:43 - Constitutional Appears: Non-toxic, Chronically Ill - Head Exam Head Exam: NORMOCEPHALIC - Eye Exam Eye Exam: absent: Scleral icterus - ENT Exam ENT Exam: Mucous Membranes Dry - Neck Exam Neck Exam: absent: Lymphadenopathy - Respiratory Exam Respiratory Exam: Decreased Breath Sounds - Cardiovascular Exam Cardiovascular Exam: REGULAR RHYTHM - GI/Abdominal Exam GI & Abdominal Exam: Distended, Soft - Rectal Exam Rectal Exam: Deferred - Exam Exam: NORMAL INSPECTION - Extremities Exam Extremities Exam: absent: Pedal Edema - Back Exam Back Exam: absent: CVA tenderness (L), CVA tenderness (R) - Neurological Exam Neurological Exam: Alert, Awake, Oriented x3 Assessment and Plan (1) Fever Status: Acute (2) ESRD (end stage renal disease) on dialysis Status: Acute - Assessment and Plan (Free Text) Assessment: fever resolved cultures neg thus far treated with Tamiflu empirically cont IV rx for 7 days total and tamiflu for 5 days ok to d/c isolation
--- NOTE | 2018-10-07 17:22 | CP.PCM.PN ---
Subjective - Date & Time of Evaluation Date of Evaluation: 10/07/18 Time of Evaluation: 17:22 - Subjective Subjective: pt is seen and examined, follow up consult is dictated #[id number] Objective - Vital Signs/Intake and Output Vital Signs (last 24 hours): Temp Pulse Resp BP Pulse Ox 98.2 F 63 20 128/63 98 10/07/18 15:00 10/07/18 15:00 10/07/18 15:00 10/07/18 15:00 10/07/18 15:00 Intake and Output: 10/07/18 10/07/18 06:59 18:59 Intake Total 600 Balance 600 - Medications Medications: Current Medications Acetaminophen (Tylenol 325mg Tab) 650 mg PO Q6 PRN PRN Reason: Fever >100.4 F Last Admin: 10/06/18 09:28 Dose: 650 mg Clopidogrel Bisulfate (Plavix) 75 mg PO DAILY [facility] Last Admin: 10/07/18 12:14 Dose: 75 mg Ferric Sodium Gluconate Complex 125 mg/ Sodium Chloride 110 mls @ 100 mls/hr IVPB DAILY [facility] Stop: 10/12/18 10:01 Last Admin: 10/07/18 11:00 Dose: 100 mls/hr Ceftriaxone Sodium 1 gm/ (Sodium Chloride) 100 mls @ 100 mls/hr IVPB DAILY [facility]; Protocol Last Admin: 10/07/18 12:01 Dose: 100 mls/hr Vancomycin/Sodium Chloride (Vancomycin 1 Gm/Ns 200 Ml) 1 gm in 200 mls @ 166.7 mls/hr IVPB QOD6 [facility]; Protocol Stop: 10/11/18 18:01 Last Admin: 10/06/18 17:28 Dose: 166.7 mls/hr Metoprolol Tartrate (Lopressor) 25 mg PO DAILY [facility] Last Admin: 10/07/18 12:14 Dose: 25 mg Oseltamivir Phosphate (Tamiflu Susp) 30 mg PO DAILY [facility]; Protocol Stop: 10/10/18 19:41 Last Admin: 10/07/18 12:14 Dose: 30 gm Sevelamer Carbonate (Renvela) 800 mg PO TIDCC [facility] Last Admin: 10/07/18 12:14 Dose: 800 mg Vitamin B Complex/Vit C/Folic Acid (Nephro-Kike) 1 tab PO 0800 [facility] Last Admin: 10/07/18 08:00 Dose: 1 tab - Labs Labs: 10/03/18 15:43 10/03/18 15:43 PT 10.7 SECONDS (9.7-12.2) 10/03/18 15:43 INR 1.0 10/03/18 15:43 APTT 37 SECONDS (21-34) H 10/03/18 15:43
[2018-10-08 07:12] LABS: HEMOGLOBIN 8.2 g/dL (12.0-18.0); MEAN CELL VOLUME 99.8 fL (80.0-94.0); MEAN CORPUSCULAR HEMOGLOBIN 34.9 pg (27.0-31.0); MEAN PLATELET VOLUME 7.8 fL (7.2-11.7); RBC 2.36 Mil/uL (4.40-5.90); RED CELL DISTRIBUTION WIDTH 15.3 % (11.5-14.5)
[2018-10-08] MEDS: Multivitamin Vitamin B Complex (Nephro-Vite) Tab PO SCH (08:10)
[2018-10-08 08:13] LABS: HEPATITIS B CORE AB NEGATIVE (NEGATIVE)
[2018-10-08 08:15] LABS: ALB/GLOB RATIO 1.2 (1.0-2.1); ALBUMIN 3.9 g/dL (3.5-5.0); ALT/SGPT 32 U/L (21-72); AST/SGOT 38 U/L (17-59); BLOOD UREA NITROGEN 39 mg/dL (9-20); CALCIUM 7.7 mg/dl (8.6-10.4); GFR NON-AFRICAN AMERICAN 6
--- NOTE | 2018-10-08 08:38 | PN ---
DATE: 10/07/2018 FOLLOWUP RENAL CONSULTATION LOCATION: The patient is located in room 352 B. REQUESTED BY: Liv Mcleod MD REASON FOR FOLLOWUP: End-stage renal disease, continuation of hemodialysis, fever. SUBJECTIVE: The patient is an 78-year-old elderly [place] male with a past medical history significant for longstanding hypertension, cardiomyopathy, CHF, status post pacemaker placement, end-stage renal disease, status post stent placement, on hemodialysis three times a week on Monday, and Monday who recently came from vacation more than one month and unable to go back to his dialysis center. The patient was referred to the hospital for further management and outpatient hemodialysis unit placement and for hemodialysis. The patient is not in acute distress. Denies any headache or dizziness. Denies any chest pain or palpitation. Denies any fever or cough. No abdominal pain. No nausea, vomiting, or diarrhea. PHYSICAL EXAMINATION: VITAL SIGNS: As follows: Blood pressure 128/63, pulse 63, respirations 20, temperature 98.2, saturation 98%. Height 4 feet 10 inches. Weight is 132 pounds. GENERAL: The patient is an 78-year-old elderly male, moderately built, moderate nourished, not in acute distress. HEENT: Pupils normal and reactive to light and accommodation. Conjunctivae pink. Sclerae anicteric. Tongue is moist. Trachea is midline. LUNGS: Symmetric on both sides. Bilateral breath sounds present. Clear to auscultation. CARDIOVASCULAR SYSTEM: [place] at the fifth intercostal space, midclavicular line. S1 and S2 audible. No murmur or gallop. ABDOMEN: Normal in appearance, soft, tympanitic. No guarding. No rigidity. No hepatosplenomegaly. CENTRAL NERVOUS SYSTEM: The patient is alert, awake, oriented x3. Nonfocal neuro examination. Cranial nerves II through XII grossly intact. Sensory and motor system is within normal limits. EXTREMITIES: No cyanosis, no clubbing, no edema. CURRENT MEDICATIONS: Include as follows: Rocephin 1 g daily, ferric gluconate 125 mg daily, Lopressor 25 mg p.o. daily, Nephro-Kike one tablet daily, Plavix 75 mg p.o. daily, Renvela 800 mg p.o. t.i.d., Tamiflu 30 mg p.o. daily, Tylenol 650 mg p.o. every 6 hours p.r.n., and vancomycin 1 g every other day. LABORATORY DATA: Include as follows as of 10/05/2018: Blood culture x2 negative, day 2 and urine culture is negative. Other laboratory data: No new labs available. ASSESSMENT AND PLAN: In summary, the patient is an 78-year-old very pleasant elderly [place] male with a history of hypertension, end-stage renal disease, cardiomyopathy, congestive heart failure, on hemodialysis three times a week on Monday, and Monday who was admitted after coming back from vacation more than 30 days and lost his outpatient dialysis. The patient was referred to hospital for hemodialysis and outpatient hemodialysis placement, and his hospital course is complicated with fever and all his cultures are negative so far. 1. End-stage renal disease. Continue hemodialysis three times a week on Monday, and Monday. Follow up with social service for outpatient hemodialysis unit placement as approved by insurance company. 2. Hypertension. Blood pressure is stable. Continue metoprolol. 3. Coronary artery disease. 4. Cardiomyopathy. Continue Plavix and metoprolol. 5. Anemia secondary to renal failure. Continue Epogen during hemodialysis and Zemplar. We will follow with you. Thank you for allowing me to participate in your patient's care. Repeat complete blood count, comprehensive metabolic panel, and phosphorus level in the morning. Janet Foster MD
[2018-10-08] MEDS: Ferric Sodium Gluconat Complex 125 MG in Sodium Chloride 0.9% 100 ML IVPB SCH (10:00)
[2018-10-08] MEDS: Oseltamivir 6 MG/ML PO SCH (10:26)
--- NOTE | 2018-10-08 12:20 | CP.PCM.PN ---
Subjective - Date & Time of Evaluation Date of Evaluation: 10/08/18 Time of Evaluation: 12:20 - Subjective Subjective: pt is seen and examined, follow up consult is dictated #[id number] for hd in am Objective - Vital Signs/Intake and Output Vital Signs (last 24 hours): Temp Pulse Resp BP Pulse Ox 98.2 F 90 20 132/79 98 10/08/18 07:49 10/08/18 07:49 10/08/18 07:49 10/08/18 10:27 10/08/18 07:49 Intake and Output: 10/08/18 10/08/18 06:59 18:59 Intake Total 200 150 Output Total 200 250 Balance 0 -100 - Medications Medications: Current Medications Acetaminophen (Tylenol 325mg Tab) 650 mg PO Q6 PRN PRN Reason: Fever >100.4 F Last Admin: 10/06/18 09:28 Dose: 650 mg Clopidogrel Bisulfate (Plavix) 75 mg PO DAILY [facility] Last Admin: 10/08/18 10:26 Dose: 75 mg Ferric Sodium Gluconate Complex 125 mg/ Sodium Chloride 110 mls @ 100 mls/hr IVPB DAILY [facility] Stop: 10/12/18 10:01 Last Admin: 10/08/18 10:00 Dose: 100 mls/hr Ceftriaxone Sodium 1 gm/ (Sodium Chloride) 100 mls @ 100 mls/hr IVPB DAILY [facility]; Protocol Last Admin: 10/08/18 11:00 Dose: 100 mls/hr Vancomycin/Sodium Chloride (Vancomycin 1 Gm/Ns 200 Ml) 1 gm in 200 mls @ 166.7 mls/hr IVPB QOD6 [facility]; Protocol Stop: 10/11/18 18:01 Last Admin: 10/06/18 17:28 Dose: 166.7 mls/hr Metoprolol Tartrate (Lopressor) 25 mg PO DAILY [facility] Last Admin: 10/08/18 10:27 Dose: 25 mg Oseltamivir Phosphate (Tamiflu Susp) 30 mg PO DAILY [facility]; Protocol Stop: 10/10/18 19:41 Last Admin: 10/08/18 10:26 Dose: 30 gm Sevelamer Carbonate (Renvela) 800 mg PO TIDCC [facility] Last Admin: 10/08/18 08:10 Dose: 800 mg Vitamin B Complex/Vit C/Folic Acid (Nephro-Kike) 1 tab PO 0800 [facility] Last Admin: 10/08/18 08:10 Dose: 1 tab - Labs Labs: 10/08/18 07:01 10/08/18 07:01 PT 10.7 SECONDS (9.7-12.2) 10/03/18 15:43 INR 1.0 10/03/18 15:43 APTT 37 SECONDS (21-34) H 10/03/18 15:43
--- NOTE | 2018-10-08 12:20 | CP.PCM.PN ---
Subjective - Date & Time of Evaluation Date of Evaluation: 10/08/18 Time of Evaluation: 07:00 - Subjective Subjective: awake alert afebrile nad Objective - Vital Signs/Intake and Output Vital Signs (last 24 hours): Temp Pulse Resp BP Pulse Ox 98.2 F 90 20 132/79 98 10/08/18 07:49 10/08/18 07:49 10/08/18 07:49 10/08/18 10:27 10/08/18 07:49 Intake and Output: 10/08/18 10/08/18 06:59 18:59 Intake Total 200 150 Output Total 200 250 Balance 0 -100 - Medications Medications: Current Medications Acetaminophen (Tylenol 325mg Tab) 650 mg PO Q6 PRN PRN Reason: Fever >100.4 F Last Admin: 10/06/18 09:28 Dose: 650 mg Clopidogrel Bisulfate (Plavix) 75 mg PO DAILY [facility] Last Admin: 10/08/18 10:26 Dose: 75 mg Ferric Sodium Gluconate Complex 125 mg/ Sodium Chloride 110 mls @ 100 mls/hr IVPB DAILY [facility] Stop: 10/12/18 10:01 Last Admin: 10/08/18 10:00 Dose: 100 mls/hr Ceftriaxone Sodium 1 gm/ (Sodium Chloride) 100 mls @ 100 mls/hr IVPB DAILY [facility]; Protocol Last Admin: 10/08/18 11:00 Dose: 100 mls/hr Vancomycin/Sodium Chloride (Vancomycin 1 Gm/Ns 200 Ml) 1 gm in 200 mls @ 166.7 mls/hr IVPB QOD6 [facility]; Protocol Stop: 10/11/18 18:01 Last Admin: 10/06/18 17:28 Dose: 166.7 mls/hr Metoprolol Tartrate (Lopressor) 25 mg PO DAILY [facility] Last Admin: 10/08/18 10:27 Dose: 25 mg Oseltamivir Phosphate (Tamiflu Susp) 30 mg PO DAILY [facility]; Protocol Stop: 10/10/18 19:41 Last Admin: 10/08/18 10:26 Dose: 30 gm Sevelamer Carbonate (Renvela) 800 mg PO TIDCC [facility] Last Admin: 10/08/18 08:10 Dose: 800 mg Vitamin B Complex/Vit C/Folic Acid (Nephro-Kike) 1 tab PO 0800 [facility] Last Admin: 10/08/18 08:10 Dose: 1 tab - Labs Labs: 10/08/18 07:01 10/08/18 07:01 PT 10.7 SECONDS (9.7-12.2) 10/03/18 15:43 INR 1.0 10/03/18 15:43 APTT 37 SECONDS (21-34) H 10/03/18 15:43 - Constitutional Appears: Non-toxic, Chronically Ill - Head Exam Head Exam: NORMOCEPHALIC - Eye Exam Eye Exam: absent: Scleral icterus - ENT Exam ENT Exam: Mucous Membranes Dry - Neck Exam Neck Exam: absent: Lymphadenopathy - Respiratory Exam Respiratory Exam: Decreased Breath Sounds - Cardiovascular Exam Cardiovascular Exam: REGULAR RHYTHM - GI/Abdominal Exam GI & Abdominal Exam: Distended - Rectal Exam Rectal Exam: Deferred - Exam Exam: NORMAL INSPECTION - Extremities Exam Extremities Exam: absent: Pedal Edema - Back Exam Back Exam: absent: CVA tenderness (L), CVA tenderness (R) - Neurological Exam Neurological Exam: Alert, Awake Assessment and Plan (1) Fever Status: Acute (2) ESRD (end stage renal disease) on dialysis Status: Acute - Assessment and Plan (Free Text) Assessment: cont rocephin for 7 days
--- NOTE | 2018-10-08 18:07 | CP.PCM.PN ---
Subjective - Date & Time of Evaluation Date of Evaluation: 10/08/18 Time of Evaluation: 18:04 - Subjective Subjective: desnot c/o poor apetite on dialysis await out pt arrangement Objective - Vital Signs/Intake and Output Vital Signs (last 24 hours): Temp Pulse Resp BP Pulse Ox 98.2 F 72 20 115/54 L 99 10/08/18 16:00 10/08/18 16:00 10/08/18 16:00 10/08/18 16:00 10/08/18 16:00 Intake and Output: 10/08/18 10/08/18 06:59 18:59 Intake Total 200 350 Output Total 200 450 Balance 0 -100 - Medications Medications: Current Medications Acetaminophen (Tylenol 325mg Tab) 650 mg PO Q6 PRN PRN Reason: Fever >100.4 F Last Admin: 10/06/18 09:28 Dose: 650 mg Clopidogrel Bisulfate (Plavix) 75 mg PO DAILY [facility] Last Admin: 10/08/18 10:26 Dose: 75 mg Ferric Sodium Gluconate Complex 125 mg/ Sodium Chloride 110 mls @ 100 mls/hr IVPB DAILY [facility] Stop: 10/12/18 10:01 Last Admin: 10/08/18 10:00 Dose: 100 mls/hr Ceftriaxone Sodium 1 gm/ (Sodium Chloride) 100 mls @ 100 mls/hr IVPB DAILY [facility]; Protocol Last Admin: 10/08/18 11:00 Dose: 100 mls/hr Vancomycin/Sodium Chloride (Vancomycin 1 Gm/Ns 200 Ml) 1 gm in 200 mls @ 166.7 mls/hr IVPB QOD6 [facility]; Protocol Stop: 10/11/18 18:01 Last Admin: 10/06/18 17:28 Dose: 166.7 mls/hr Metoprolol Tartrate (Lopressor) 25 mg PO DAILY [facility] Last Admin: 10/08/18 10:27 Dose: 25 mg Oseltamivir Phosphate (Tamiflu Susp) 30 mg PO DAILY [facility]; Protocol Stop: 10/10/18 19:41 Last Admin: 10/08/18 10:26 Dose: 30 gm Sevelamer Carbonate (Renvela) 800 mg PO TIDCC [facility] Last Admin: 10/08/18 12:11 Dose: 800 mg Vitamin B Complex/Vit C/Folic Acid (Nephro-Kike) 1 tab PO 0800 [facility] Last Admin: 10/08/18 08:10 Dose: 1 tab - Labs Labs: 10/08/18 07:01 10/08/18 07:01 PT 10.7 SECONDS (9.7-12.2) 10/03/18 15:43 INR 1.0 10/03/18 15:43 APTT 37 SECONDS (21-34) H 10/03/18 15:43 - Constitutional Appears: Non-toxic - Head Exam Head Exam: ATRAUMATIC - Eye Exam Eye Exam: Normal appearance Pupil Exam: NORMAL ACCOMODATION - ENT Exam ENT Exam: Normal Exam - Neck Exam Neck Exam: Full ROM - Respiratory Exam Respiratory Exam: Clear to Ausculation Bilateral - Cardiovascular Exam Cardiovascular Exam: REGULAR RHYTHM - GI/Abdominal Exam GI & Abdominal Exam: Normal Bowel Sounds - Rectal Exam Rectal Exam: NORMAL INSPECTION - Exam Exam: NORMAL INSPECTION - Extremities Exam Extremities Exam: Full ROM - Back Exam Back Exam: NORMAL INSPECTION - Neurological Exam Neurological Exam: Awake, Oriented x3 - Psychiatric Exam Psychiatric exam: Normal Mood - Skin Skin Exam: Normal Color, Pallor Assessment and Plan - Assessment and Plan (Free Text) Assessment: esrf aneamia on dialysis Plan: await out pt arrangement
[2018-10-08] MEDS: Vancomycin 1 gm/NS 200 ml 1 GM/200 ML BAG IVPB SCH (18:24)
--- NOTE | 2018-10-09 07:07 | PN ---
DATE: 10/08/2018 FOLLOWUP RENAL CONSULTATION LOCATION: The patient is located in room 352, bed B. REQUESTED BY: Liv Mcleod MD REASON FOR FOLLOWUP: End-stage renal disease, continuation of hemodialysis. SUBJECTIVE: Mr. Britt is an 78-year-old elderly [place] male with a past medical history significant for longstanding hypertension, coronary artery disease, status post pacemaker placement, cardiomyopathy, CHF, end-stage renal disease, on hemodialysis three times a week, Monday, , Monday, who recently came back from vacation after one month and unable to go back to his dialysis center. The patient was referred to hospital for further continuation of hemodialysis and took placement with outpatient dialysis unit. The patient is not in acute distress. Denies any headache, dizziness. Denies any chest pain or palpitation. Denies any fever or cough. No abdominal pain. No nausea, vomiting, diarrhea. PHYSICAL EXAMINATION: VITAL SIGNS: As follows: Blood pressure this morning 132/79, pulse 72, respirations 20, temperature 98.2, saturation 99%. Height 4 feet 10 inches, weight is 132 pounds. GENERAL: Mr. Britt is an 78-year-old elderly male, moderately built, moderately nourished, not in distress. HEENT: Pupils normal, reactive to light and accommodation. Conjunctivae pink. Sclerae anicteric. Tongue is moist and trachea is midline. LUNGS: Symmetric on both sides. Bilateral breath sounds present. Clear to auscultation. CARDIOVASCULAR SYSTEM: [place] at the fifth intercostal space, midclavicular line. S1 and S2 audible. No murmur or gallop. ABDOMEN: Normal in appearance. Soft, tympanitic. No guarding. No rigidity. No hepatosplenomegaly. CENTRAL NERVOUS SYSTEM: The patient is alert, awake, oriented x3. Nonfocal neuro examination. Cranial nerves II-XII grossly intact. Sensory and motor system is within normal limits. EXTREMITIES: No cyanosis, no clubbing, no edema. CURRENT MEDICATIONS: Rocephin 1 g daily, ferrous gluconate 125 mg IV daily, metoprolol 25 mg p.o. daily, Nephro-Kike one tablet daily, Plavix 75 mg p.o. daily, Renvela 18 mg p.o. t.i.d., Tamiflu 30 mg p.o. daily, Tylenol 325 mg two tablets p.o. every 6 hours p.r.n., vancomycin 1 g every other day. LABORATORY DATA: Include as follows: As of 10/08/2018, WBC 5, hemoglobin 8 , hematocrit 23.5, and platelets 157. Sodium 137, potassium 4, chloride 96, CO2 of , BUN 39, creatinine 8.5, glucose 8.9, calcium 7.7, phosphorus 3.3. Total bilirubin 0.3, AST 38, ALT 32, alkaline phosphatase 68, total protein 7, albumin is 3.9. Hepatitis B surface antigen is negative. Core antibody IgM is negative. Hepatitis C antibody is negative. ASSESSMENT AND PLAN: In summary, Mr. Britt is an 78-year-old elderly male with history of hypertension; cardiomegaly; congestive heart failure; end-stage renal disease, on hemodialysis three times a week, Monday, , Monday, was admitted to the hospital after he was returning from vacation for more than one month, unable to go back to dialysis unit and advised to go to the hospital for continuation of hemodialysis. 1. End-stage renal disease. Continue hemodialysis three times a week; Monday, , Monday. 2. Hypertension. Blood pressure is stable. 3. Coronary artery disease. 4. Cardiomyopathy. 5. Anemia secondary to renal failure. Continue Ferrlecit and Epogen. Follow up with social service for outpatient hemodialysis unit placement, awaiting for the dialysis unit approval and insurance acceptance. Check vancomycin level in a.m., and we will discontinue Ferrlecit. Thank you for allowing me to participate in your patient's care. Janet Foster MD
[2018-10-09] MEDS: Multivitamin Vitamin B Complex (Nephro-Vite) Tab PO SCH (08:20)
--- NOTE | 2018-10-09 10:43 | CP.PCM.PN ---
Subjective - Date & Time of Evaluation Date of Evaluation: 10/09/18 Time of Evaluation: 10:42 - Subjective Subjective: pt is seen and examined, follow up consult is dictated #[id number] stable hd tx Objective - Vital Signs/Intake and Output Vital Signs (last 24 hours): Temp Pulse Resp BP Pulse Ox 98.1 F 77 20 127/67 97 10/09/18 07:00 10/09/18 07:00 10/09/18 07:00 10/09/18 07:00 10/09/18 07:00 Intake and Output: 10/09/18 10/09/18 06:59 18:59 Intake Total 12 Balance 12 - Medications Medications: Current Medications Acetaminophen (Tylenol 325mg Tab) 650 mg PO Q6 PRN PRN Reason: Fever >100.4 F Last Admin: 10/06/18 09:28 Dose: 650 mg Clopidogrel Bisulfate (Plavix) 75 mg PO DAILY [facility] Last Admin: 10/08/18 10:26 Dose: 75 mg Ceftriaxone Sodium 1 gm/ (Sodium Chloride) 100 mls @ 100 mls/hr IVPB DAILY [facility]; Protocol Last Admin: 10/08/18 11:00 Dose: 100 mls/hr Vancomycin/Sodium Chloride (Vancomycin 1 Gm/Ns 200 Ml) 1 gm in 200 mls @ 166.7 mls/hr IVPB QOD6 [facility]; Protocol Stop: 10/11/18 18:01 Last Admin: 10/08/18 18:24 Dose: 166.7 mls/hr Metoprolol Tartrate (Lopressor) 25 mg PO DAILY [facility] Last Admin: 10/08/18 10:27 Dose: 25 mg Oseltamivir Phosphate (Tamiflu Susp) 30 mg PO DAILY [facility]; Protocol Stop: 10/10/18 19:41 Last Admin: 10/08/18 10:26 Dose: 30 gm Sevelamer Carbonate (Renvela) 800 mg PO TIDCC [facility] Last Admin: 10/09/18 08:20 Dose: 800 mg Vitamin B Complex/Vit C/Folic Acid (Nephro-Kike) 1 tab PO 0800 [facility] Last Admin: 10/09/18 08:20 Dose: 1 tab - Labs Labs: 10/08/18 07:01 10/08/18 07:01 PT 10.7 SECONDS (9.7-12.2) 01/09/19 15:43 INR 1.0 10/03/18 15:43 APTT 37 SECONDS (21-34) H 10/03/18 15:43
--- NOTE | 2018-10-09 10:45 | CP.PCM.PN ---
Subjective - Date & Time of Evaluation Date of Evaluation: 10/09/18 Time of Evaluation: 10:42 - Subjective Subjective: no discomfort Objective - Vital Signs/Intake and Output Vital Signs (last 24 hours): Temp Pulse Resp BP Pulse Ox 98.1 F 77 20 127/67 97 10/09/18 07:00 10/09/18 07:00 10/09/18 07:00 10/09/18 07:00 10/09/18 07:00 Intake and Output: 10/09/18 10/09/18 06:59 18:59 Intake Total 12 Balance 12 - Medications Medications: Current Medications Acetaminophen (Tylenol 325mg Tab) 650 mg PO Q6 PRN PRN Reason: Fever >100.4 F Last Admin: 10/06/18 09:28 Dose: 650 mg Clopidogrel Bisulfate (Plavix) 75 mg PO DAILY [facility] Last Admin: 10/08/18 10:26 Dose: 75 mg Ceftriaxone Sodium 1 gm/ (Sodium Chloride) 100 mls @ 100 mls/hr IVPB DAILY [facility]; Protocol Last Admin: 10/08/18 11:00 Dose: 100 mls/hr Vancomycin/Sodium Chloride (Vancomycin 1 Gm/Ns 200 Ml) 1 gm in 200 mls @ 166.7 mls/hr IVPB QOD6 [facility]; Protocol Stop: 10/11/18 18:01 Last Admin: 10/08/18 18:24 Dose: 166.7 mls/hr Metoprolol Tartrate (Lopressor) 25 mg PO DAILY [facility] Last Admin: 10/08/18 10:27 Dose: 25 mg Oseltamivir Phosphate (Tamiflu Susp) 30 mg PO DAILY [facility]; Protocol Stop: 10/10/18 19:41 Last Admin: 10/08/18 10:26 Dose: 30 gm Sevelamer Carbonate (Renvela) 800 mg PO TIDCC [facility] Last Admin: 10/09/18 08:20 Dose: 800 mg Vitamin B Complex/Vit C/Folic Acid (Nephro-Kike) 1 tab PO 0800 [facility] Last Admin: 10/09/18 08:20 Dose: 1 tab - Labs Labs: 10/08/18 07:01 10/08/18 07:01 PT 10.7 SECONDS (9.7-12.2) 10/03/18 15:43 INR 1.0 10/03/18 15:43 APTT 37 SECONDS (21-34) H 01/09/19 15:43 - Constitutional Appears: Non-toxic - Head Exam Head Exam: ATRAUMATIC - Eye Exam Eye Exam: Normal appearance Pupil Exam: NORMAL ACCOMODATION - ENT Exam ENT Exam: Mucous Membranes Moist - Neck Exam Neck Exam: Full ROM - Respiratory Exam Respiratory Exam: NORMAL BREATHING PATTERN - Cardiovascular Exam Cardiovascular Exam: REGULAR RHYTHM - GI/Abdominal Exam GI & Abdominal Exam: Normal Bowel Sounds - Exam Exam: NORMAL INSPECTION - Extremities Exam Extremities Exam: Full ROM - Back Exam Back Exam: NORMAL INSPECTION - Neurological Exam Neurological Exam: Normal Gait - Psychiatric Exam Psychiatric exam: Flat Affect - Skin Skin Exam: Pallor Assessment and Plan - Assessment and Plan (Free Text) Assessment: esrf aneamia Plan: awaite arrangement for out pt dialysis
[2018-10-09] MEDS: Oseltamivir 6 MG/ML PO SCH ×2 (10:48→12:24)
[2018-10-09] MEDS ORDERED: EPOETIN ALFA 10,000 UNIT/ML ML SC ONE ×2 (22:06→23:13)
--- NOTE | 2018-10-09 22:48 | CP.PCM.PN ---
Subjective - Date & Time of Evaluation Date of Evaluation: 10/09/18 Time of Evaluation: 07:00 - Subjective Subjective: afebrile' all cultures neg will d/c rocephin Objective - Vital Signs/Intake and Output Vital Signs (last 24 hours): Temp Pulse Resp BP Pulse Ox 98 F 88 21 127/79 97 10/09/18 18:00 10/09/18 18:00 10/09/18 18:00 10/09/18 18:00 10/09/18 18:00 - Medications Medications: Current Medications Acetaminophen (Tylenol 325mg Tab) 650 mg PO Q6 PRN PRN Reason: Fever >100.4 F Last Admin: 10/06/18 09:28 Dose: 650 mg Clopidogrel Bisulfate (Plavix) 75 mg PO DAILY [facility] Last Admin: 10/09/18 10:47 Dose: 75 mg Vancomycin/Sodium Chloride (Vancomycin 1 Gm/Ns 200 Ml) 1 gm in 200 mls @ 166.7 mls/hr IVPB QOD6 [facility]; Protocol Stop: 10/11/18 18:01 Last Admin: 10/08/18 18:24 Dose: 166.7 mls/hr Metoprolol Tartrate (Lopressor) 25 mg PO DAILY [facility] Last Admin: 10/09/18 10:44 Dose: Not Given Oseltamivir Phosphate (Tamiflu Susp) 30 mg PO DAILY [facility]; Protocol Stop: 10/10/18 19:41 Last Admin: 10/09/18 12:24 Dose: 30 gm Sevelamer Carbonate (Renvela) 800 mg PO TIDCC [facility] Last Admin: 10/09/18 17:33 Dose: 800 mg Vitamin B Complex/Vit C/Folic Acid (Nephro-Kike) 1 tab PO 0800 [facility] Last Admin: 10/09/18 08:20 Dose: 1 tab - Labs Labs: 10/08/18 07:01 10/08/18 07:01 PT 10.7 SECONDS (9.7-12.2) 10/03/18 15:43 INR 1.0 10/03/18 15:43 APTT 37 SECONDS (21-34) H 10/03/18 15:43 - Constitutional Appears: Non-toxic, Chronically Ill - Head Exam Head Exam: NORMOCEPHALIC - Eye Exam Eye Exam: absent: Scleral icterus - ENT Exam ENT Exam: Mucous Membranes Dry - Neck Exam Neck Exam: absent: Lymphadenopathy - Respiratory Exam Respiratory Exam: Decreased Breath Sounds - Cardiovascular Exam Cardiovascular Exam: REGULAR RHYTHM - GI/Abdominal Exam GI & Abdominal Exam: Distended, Soft - Rectal Exam Rectal Exam: Deferred - Extremities Exam Extremities Exam: absent: Calf Tenderness - Back Exam Back Exam: absent: CVA tenderness (L), CVA tenderness (R) - Neurological Exam Neurological Exam: Alert, Awake Assessment and Plan (1) Fever Status: Acute (2) ESRD (end stage renal disease) on dialysis Status: Acute - Assessment and Plan (Free Text) Assessment: will d/c rocephin as cultures negative
--- NOTE | 2018-10-10 03:53 | CON ---
DATE: 10/09/2018 FOLLOWUP RENAL CONSULTATION LOCATION: The patient is located in room 352, bed B. REQUESTED BY: Liv Mcleod MD REASON FOR FOLLOWUP: End-stage renal disease, continuation of hemodialysis. HISTORY OF PRESENT ILLNESS: An 78-year-old elderly, very pleasant, [place] male with a past medical history significant for longstanding hypertension, coronary artery disease, CHF, cardiomyopathy, status post pacemaker placement; end-stage renal disease, on hemodialysis three times a week, Monday, , Monday, was admitted after returning from vacation for more than 30 days, unable to go back to home unit and the patient was referred for continuation of hemodialysis in the hospital, awaiting for the outpatient hemodialysis unit placement. The patient is not in acute distress. The patient is eager to go home. No chest pain or palpitation. No fever. No cough. No abdominal pain. No nausea, vomiting, diarrhea. PHYSICAL EXAMINATION: VITAL SIGNS: As follows: Blood pressure this morning 127/67, pulse 77, respirations 20, temperature 98.1, saturation 97%. Height 4 feet 10 inches, weight is 132 pounds. GENERAL: Mr. Britt is an 78-year-old elderly male, moderately built, moderately nourished, not in distress. HEENT: Pupils normal, reactive to light and accommodation. Conjunctivae pink. Sclerae anicteric. Tongue is moist. Trachea is midline. LUNGS: Symmetric on both sides. Bilateral breath sounds present. Clear to auscultation. CARDIOVASCULAR SYSTEM: [place] at the fifth intercostal space, midclavicular line. S1, S2 audible. No murmur or gallop. ABDOMEN: Normal in appearance, soft, tympanitic. No guarding. No rigidity. No hepatosplenomegaly. CENTRAL NERVOUS SYSTEM: The patient is alert, awake, oriented x3. Nonfocal neuro examination. Cranial nerves II-XII grossly intact. Sensory and motor system within normal limits. EXTREMITIES: No cyanosis, no clubbing, no edema. CURRENT MEDICATIONS: Include as follows: Rocephin 1 g daily, metoprolol 25 mg p.o. daily, Nephro-Kike one tablet daily, Plavix 75 mg daily, Renvela 800 mg p.o. t.i.d., and Tamiflu 30 mg p.o. daily, Tylenol, vancomycin 1 g IV piggyback every other day, Zemplar 2 mcg three times a week, Plavix 75 mg daily, and Procrit. LABORATORY DATA: His lab data include as follows: As of 10/08/2018, WBC 5, hemoglobin 8, hematocrit is 23.5, platelets 157. Other laboratory data, sodium 137, potassium is 4, chloride 96, CO2 31, BUN 39, creatinine 8.5, glucose 89, calcium 7.7, phosphorus 3.3. Magnesium is not done. Total bili 0.3. AST 38, ALT 32, alkaline phosphatase , total protein 7, albumin is 3.2. ASSESSMENT AND PLAN: In summary, Mr. Britt is an 78-year-old [place] male with a history of longstanding hypertension, coronary artery disease, congestive heart failure, cardiomyopathy; end-stage renal disease, on hemodialysis three times a week, Monday, , Monday, was admitted requesting for hemodialysis as the patient was refused to take into the home unit after coming back from vacation for more than 30 days and now insurance is denying to go back to his home unit and plans for another unit, and waiting for acceptance to the outpatient hemodialysis unit. 1. End-stage renal disease. Continue hemodialysis Monday, , Monday. 2. Hypertension. Blood pressure is stable. Continue metoprolol. 3. Anemia secondary to renal failure. Continue Epogen. Discussed with social service, awaiting for the placement outpatient dialysis unit and discussed with the patient's son and also the patient. Also discussed with Dr. Liv Mcleod in rounds this morning. We will follow with you. Thank you. Janet Foster MD
[2018-10-10] MEDS: Multivitamin Vitamin B Complex (Nephro-Vite) Tab PO SCH (07:32)
[2018-10-10] MEDS: Oseltamivir 6 MG/ML PO SCH (11:01)
--- NOTE | 2018-10-10 11:15 | CP.PCM.PN ---
Subjective - Date & Time of Evaluation Date of Evaluation: 10/10/18 Time of Evaluation: 11:12 - Subjective Subjective: no new c/o Objective - Vital Signs/Intake and Output Vital Signs (last 24 hours): Temp Pulse Resp BP Pulse Ox 98.4 F 80 20 127/66 97 10/10/18 07:00 10/10/18 07:00 10/10/18 07:00 10/10/18 11:02 10/10/18 07:00 Intake and Output: 10/10/18 10/10/18 06:59 18:59 Intake Total 250 120 Output Total 200 Balance 50 120 - Medications Medications: Current Medications Acetaminophen (Tylenol 325mg Tab) 650 mg PO Q6 PRN PRN Reason: Fever >100.4 F Last Admin: 10/06/18 09:28 Dose: 650 mg Clopidogrel Bisulfate (Plavix) 75 mg PO DAILY [facility] Last Admin: 10/10/18 11:01 Dose: 75 mg Vancomycin/Sodium Chloride (Vancomycin 1 Gm/Ns 200 Ml) 1 gm in 200 mls @ 166.7 mls/hr IVPB QOD6 [facility]; Protocol Stop: 10/11/18 18:01 Last Admin: 10/08/18 18:24 Dose: 166.7 mls/hr Metoprolol Tartrate (Lopressor) 25 mg PO DAILY [facility] Last Admin: 10/10/18 11:02 Dose: 25 mg Sevelamer Carbonate (Renvela) 800 mg PO TIDCC [facility] Last Admin: 10/10/18 11:03 Dose: 800 mg Vitamin B Complex/Vit C/Folic Acid (Nephro-Kike) 1 tab PO 0800 [facility] Last Admin: 10/10/18 07:32 Dose: 1 tab - Labs Labs: 10/08/18 07:01 10/08/18 07:01 PT 10.7 SECONDS (9.7-12.2) 10/03/18 15:43 INR 1.0 10/03/18 15:43 APTT 37 SECONDS (21-34) H 10/03/18 15:43 - Constitutional Appears: Non-toxic - Head Exam Head Exam: ATRAUMATIC - Eye Exam Eye Exam: Normal appearance Pupil Exam: NORMAL ACCOMODATION - ENT Exam ENT Exam: Mucous Membranes Moist - Neck Exam Neck Exam: Full ROM - Respiratory Exam Respiratory Exam: NORMAL BREATHING PATTERN - Cardiovascular Exam Cardiovascular Exam: REGULAR RHYTHM - GI/Abdominal Exam GI & Abdominal Exam: Normal Bowel Sounds - Exam Exam: NORMAL INSPECTION - Psychiatric Exam Psychiatric exam: Normal Affect - Skin Skin Exam: Normal Color, Pallor Assessment and Plan - Assessment and Plan (Free Text) Assessment: esrf aneamia dm Plan: cont dialysis arrange for out pt dialysis
--- NOTE | 2018-10-10 16:11 | CP.PCM.PN ---
Subjective - Date & Time of Evaluation Date of Evaluation: 10/10/18 Time of Evaluation: 09:00 - Subjective Subjective: afebrile awake alert NAD Objective - Vital Signs/Intake and Output Vital Signs (last 24 hours): Temp Pulse Resp BP Pulse Ox 98.4 F 80 20 127/66 97 10/10/18 07:00 10/10/18 07:00 10/10/18 07:00 10/10/18 11:02 10/10/18 07:00 Intake and Output: 10/10/18 10/10/18 06:59 18:59 Intake Total 250 120 Output Total 200 Balance 50 120 - Medications Medications: Current Medications Acetaminophen (Tylenol 325mg Tab) 650 mg PO Q6 PRN PRN Reason: Fever >100.4 F Last Admin: 10/06/18 09:28 Dose: 650 mg Clopidogrel Bisulfate (Plavix) 75 mg PO DAILY [facility] Last Admin: 10/10/18 11:01 Dose: 75 mg Vancomycin/Sodium Chloride (Vancomycin 1 Gm/Ns 200 Ml) 1 gm in 200 mls @ 166.7 mls/hr IVPB QOD6 [facility]; Protocol Stop: 10/11/18 18:01 Last Admin: 10/08/18 18:24 Dose: 166.7 mls/hr Metoprolol Tartrate (Lopressor) 25 mg PO DAILY [facility] Last Admin: 10/10/18 11:02 Dose: 25 mg Sevelamer Carbonate (Renvela) 800 mg PO TIDCC [facility] Last Admin: 10/10/18 11:03 Dose: 800 mg Vitamin B Complex/Vit C/Folic Acid (Nephro-Kike) 1 tab PO 0800 [facility] Last Admin: 10/10/18 07:32 Dose: 1 tab - Labs Labs: 10/08/18 07:01 10/08/18 07:01 PT 10.7 SECONDS (9.7-12.2) 10/03/18 15:43 INR 1.0 10/03/18 15:43 APTT 37 SECONDS (21-34) H 10/03/18 15:43 - Constitutional Appears: Non-toxic, Chronically Ill - Head Exam Head Exam: NORMOCEPHALIC - Eye Exam Eye Exam: absent: Scleral icterus - ENT Exam ENT Exam: Mucous Membranes Dry - Neck Exam Neck Exam: absent: Lymphadenopathy - Respiratory Exam Respiratory Exam: Decreased Breath Sounds - Cardiovascular Exam Cardiovascular Exam: REGULAR RHYTHM - GI/Abdominal Exam GI & Abdominal Exam: Distended, Soft - Rectal Exam Rectal Exam: Deferred - Exam Exam: NORMAL INSPECTION - Extremities Exam Extremities Exam: absent: Pedal Edema - Back Exam Back Exam: absent: CVA tenderness (L), CVA tenderness (R) - Neurological Exam Neurological Exam: Alert, Awake, CN II-XII Intact Assessment and Plan (1) Fever Status: Acute (2) ESRD (end stage renal disease) on dialysis Status: Acute - Assessment and Plan (Free Text) Assessment: ok to d/c Vanco as all cultures negative
--- NOTE | 2018-10-10 17:49 | CP.PCM.PN ---
Subjective - Date & Time of Evaluation Date of Evaluation: 10/10/18 Time of Evaluation: 17:49 - Subjective Subjective: pt is seen and examined, follow up consult is dictated #[id number] hd in am Objective - Vital Signs/Intake and Output Vital Signs (last 24 hours): Temp Pulse Resp BP Pulse Ox 98.1 F 78 20 142/72 96 10/10/18 16:00 10/10/18 16:00 10/10/18 16:00 10/10/18 16:00 10/10/18 16:00 Intake and Output: 10/10/18 10/10/18 06:59 18:59 Intake Total 250 120 Output Total 200 Balance 50 120 - Medications Medications: Current Medications Acetaminophen (Tylenol 325mg Tab) 650 mg PO Q6 PRN PRN Reason: Fever >100.4 F Last Admin: 10/06/18 09:28 Dose: 650 mg Clopidogrel Bisulfate (Plavix) 75 mg PO DAILY [facility] Last Admin: 10/10/18 11:01 Dose: 75 mg Metoprolol Tartrate (Lopressor) 25 mg PO DAILY [facility] Last Admin: 10/10/18 11:02 Dose: 25 mg Sevelamer Carbonate (Renvela) 800 mg PO TIDCC [facility] Last Admin: 10/10/18 11:03 Dose: 800 mg Vitamin B Complex/Vit C/Folic Acid (Nephro-Kike) 1 tab PO 0800 [facility] Last Admin: 10/10/18 07:32 Dose: 1 tab - Labs Labs: 10/08/18 07:01 10/08/18 07:01 PT 10.7 SECONDS (9.7-12.2) 10/03/18 15:43 INR 1.0 10/03/18 15:43 APTT 37 SECONDS (21-34) H 10/03/18 15:43
--- NOTE | 2018-10-11 00:47 | PN ---
DATE: 10/10/2018 FOLLOWUP RENAL CONSULTATION LOCATION: The patient is located in room 352, bed B. REQUESTED BY: Liv Mcleod MD REASON FOR FOLLOWUP: End-stage renal disease, continuation of the hemodialysis. HISTORY OF PRESENT ILLNESS: Mr. Britt is an 78-year-old elderly [place] male with a past medical history significant for hypertension, CHF, coronary artery disease, hyperlipidemia, status post pacemaker placement, end-stage renal disease, on hemodialysis three times a week Monday, , and Monday who was admitted after coming back from vacation more than 30 days, unable to go back to his dialysis unit, and the patient was referred to hospital for continuation of hemodialysis. The patient is receiving hemodialysis Monday, , and Monday. Awaiting for the outpatient hemodialysis unit placement. [facility] declined to accept the patient to the unit again. The patient denies any headache, dizziness. Denies any chest pain or palpitation. Denies any fever or cough. No abdominal pain. No nausea, vomiting, or diarrhea. PHYSICAL EXAMINATION: VITAL SIGNS: As follows: Blood pressure 142/72, pulse 78, respirations 20, temperature 98.1, saturation 96%. Height 4 feet 10 inches, weight is 132 pounds. GENERAL: Mr. Britt is an 78-year-old elderly male, moderately built, moderately nourished, not in distress. HEENT: Pupils normal and reactive to light and accommodation. Conjunctivae pink. Sclerae anicteric. Tongue is moist. Trachea is midline. LUNGS: Symmetric on both sides. Bilateral breath sounds present. Clear to auscultation. CARDIOVASCULAR SYSTEM: [place] at the fifth intercostal space, midclavicular line. S1, S2 audible. No murmur or gallop. ABDOMEN: Normal in appearance, soft, tympanitic. No guarding. No rigidity. No hepatosplenomegaly. CENTRAL NERVOUS SYSTEM: The patient is alert, awake, oriented x3. Nonfocal neuro examination. Cranial nerves II through XII grossly intact. Sensory and motor system is within normal limits. EXTREMITIES: No cyanosis, no clubbing, no edema. MEDICATIONS: His current medications include as follows: Metoprolol 25 mg p.o. daily, Nephro-Kike 1 tablet daily, Plavix 75 mg p.o. daily, Renvela 800 mg p.o. t.i.d., Tylenol 650 mg p.o. every 6 hours. LABORATORY DATA: His other laboratory data include as follows: As of 10/08/2018, hemoglobin 8.2, hematocrit is 23.5, platelets 157, WBC 5. Sodium 137, potassium is 4, chloride 96, CO2 of 31, BUN 39, creatinine 8.5, glucose 89, calcium 7.7, phosphorus 3.3. IMPRESSION: In summary, Mr. Britt is an 78-year-old elderly [place] male with a history of hypertension, congestive heart failure, coronary artery disease, status post pacemaker placement, end-stage renal disease, on hemodialysis, three times a week who was admitted after coming back from vacation more than 30 days and unable to go back to his home unit, and the patient was referred to the hospital for continuation of hemodialysis. 1. End-stage renal disease. Continue hemodialysis three times a week; Monday, , Monday. 2. Hypertension. Blood pressure is stable. Continue his current medication, metoprolol 25 mg p.o. daily. 3. Coronary artery disease. Continue Plavix and aspirin. 4. Anemia secondary to renal failure. We will continue Epogen three times a week, and also Nephro-Kike 1 tablet daily. We will continue Zemplar 2 mcg three times a week. We will follow with social service for outpatient hemodialysis unit placement. Janet Foster MD
[2018-10-11] MEDS: Multivitamin Vitamin B Complex (Nephro-Vite) Tab PO SCH (08:01)
--- NOTE | 2018-10-11 09:16 | CP.PCM.PN ---
Subjective - Date & Time of Evaluation Date of Evaluation: 10/11/18 Time of Evaluation: 09:16 - Subjective Subjective: pt is seen and examined, follow up consult is dictated #[id number] for hfd today, uf 1.5-2 lit as tolerated Objective - Vital Signs/Intake and Output Vital Signs (last 24 hours): Temp Pulse Resp BP Pulse Ox 98.2 F 80 20 129/62 97 10/11/18 07:37 10/11/18 07:37 10/11/18 07:37 10/11/18 07:37 10/11/18 07:37 - Medications Medications: Current Medications Acetaminophen (Tylenol 325mg Tab) 650 mg PO Q6 PRN PRN Reason: Fever >100.4 F Last Admin: 10/06/18 09:28 Dose: 650 mg Aspirin (Ecotrin) 81 mg PO DAILY [facility] Clopidogrel Bisulfate (Plavix) 75 mg PO DAILY [facility] Last Admin: 10/10/18 11:01 Dose: 75 mg Epoetin Xavier (Procrit) 10,000 unit IV TTS [facility] Metoprolol Tartrate (Lopressor) 25 mg PO DAILY [facility] Last Admin: 10/10/18 11:02 Dose: 25 mg Paricalcitol (Zemplar) 2 mcg IV TTS [facility] Sevelamer Carbonate (Renvela) 800 mg PO TIDCC [facility] Last Admin: 10/11/18 08:00 Dose: 800 mg Vitamin B Complex/Vit C/Folic Acid (Nephro-Kike) 1 tab PO 0800 [facility] Last Admin: 10/11/18 08:01 Dose: 1 tab - Labs Labs: 10/08/18 07:01 10/08/18 07:01 PT 10.7 SECONDS (9.7-12.2) 10/03/18 15:43 INR 1.0 10/03/18 15:43 APTT 37 SECONDS (21-34) H 10/03/18 15:43
[2018-10-11] MEDS ORDERED: Paricalcitol 2 mcg/ml Inj IV SCH (10:00)
[2018-10-11 16:09] VITALS: RESP 16
[2018-10-11] MEDS ORDERED: Epoetin Alfa 10,000 unit/ml Dialysis IV SCH (16:30)
--- NOTE | 2018-10-11 16:53 | CP.PCM.PN ---
Subjective - Date & Time of Evaluation Date of Evaluation: 10/11/18 Time of Evaluation: 16:53 - Subjective Subjective: aler5, awake, no sob or chest pains, NAD. Objective - Vital Signs/Intake and Output Vital Signs (last 24 hours): Temp Pulse Resp BP Pulse Ox 97.8 F 91 H 16 126/69 97 10/11/18 16:06 10/11/18 16:06 10/11/18 16:06 10/11/18 16:06 10/11/18 07:37 - Medications Medications: Current Medications Acetaminophen (Tylenol 325mg Tab) 650 mg PO Q6 PRN PRN Reason: Fever >100.4 F Last Admin: 10/06/18 09:28 Dose: 650 mg Aspirin (Ecotrin) 81 mg PO DAILY [facility] Last Admin: 10/11/18 10:32 Dose: 81 mg Clopidogrel Bisulfate (Plavix) 75 mg PO DAILY [facility] Last Admin: 10/11/18 10:28 Dose: 75 mg Epoetin Xavier (Procrit) 10,000 unit IV TTS [facility] Last Admin: 10/11/18 16:42 Dose: 10,000 unit Metoprolol Tartrate (Lopressor) 25 mg PO DAILY [facility] Last Admin: 10/11/18 10:29 Dose: Not Given Paricalcitol (Zemplar) 2 mcg IV TTS [facility] Last Admin: 10/11/18 16:42 Dose: 2 mcg Sevelamer Carbonate (Renvela) 800 mg PO TIDCC [facility] Last Admin: 10/11/18 12:26 Dose: 800 mg Vitamin B Complex/Vit C/Folic Acid (Nephro-Kike) 1 tab PO 0800 [facility] Last Admin: 10/11/18 08:01 Dose: 1 tab - Labs Labs: 10/08/18 07:01 10/08/18 07:01 PT 10.7 SECONDS (9.7-12.2) 10/03/18 15:43 INR 1.0 10/03/18 15:43 APTT 37 SECONDS (21-34) H 10/03/18 15:43 Assessment and Plan - Assessment and Plan (Free Text) Assessment: 78 year old male with ESRD, seen and examined. No sob or chest pains, no acute distress. Seen after HD today. Discussed with DR Mcleod, plan to discharge home today. Advised to continue with HD, TTS as arranged.
[2018-10-11 17:06] VITALS: BP 126/62; PULSE 90; TEMP 97.3; O2SAT 100
--- NOTE | 2018-10-12 00:26 | PN ---
DATE: 10/11/2018 FOLLOWUP RENAL CONSULTATION LOCATION: The patient is located in room 352, bed B. REQUESTED BY: Liv Mcleod MD REASON FOR FOLLOWUP: End-stage renal disease, continuation of hemodialysis. SUBJECTIVE: Mr. Britt is an 78-year-old elderly very pleasant [place] male with a past medical history significant for longstanding hypertension, CHF, coronary artery disease, end-stage renal disease, hyperlipidemia, who was status post pacemaker, who was admitted after coming back from vacation for more than 30 days, unable to go back to his dialysis unit and the patient was referred to the emergency room for continuation of hemodialysis and also outpatient hemodialysis unit placement. The patient is not in acute distress. Denies any headache, dizziness. Denies any chest pain, palpitation. Denies any fever, cough. No abdominal pain. No nausea, vomiting, diarrhea. PHYSICAL EXAMINATION: VITAL SIGNS: As follows: Blood pressure this morning is 129/62, pulse 80, respirations 20, temperature 98.2, saturation 97%. Height 4 feet 10 inches and weight is 132 pounds. GENERAL: Mr. Britt is an 78-year-old elderly [place] male, moderately built, moderately nourished, not in acute distress. HEENT: Pupils normal, reactive to light and accommodation. Conjunctivae pink. Sclerae anicteric. Tongue is moist. Trachea is midline. LUNGS: Symmetric on both sides. Bilateral breath sounds present. Occasional basal crackles present. CARDIOVASCULAR SYSTEM: [place] at the fifth intercostal space, midclavicular line. S1 and S2 audible. No murmur or gallop. ABDOMEN: Normal in appearance. Soft, tympanitic. No guarding. No rigidity. No hepatosplenomegaly. CENTRAL NERVOUS SYSTEM: The patient is alert, awake, oriented x3. Nonfocal neuro examination. Cranial nerves II-XII grossly intact. Sensory and motor system is within normal limits. EXTREMITIES: No cyanosis, no clubbing, no edema. LABORATORY DATA: No new labs are available for today. His previous blood work as of 10/08/2018, WBC 5, hemoglobin 8.2, hematocrit is 23.5, platelets 157. Sodium 137, potassium is 4, chloride 96, CO2 of 31, BUN 39, creatinine 8.5, glucose 89. Chest x-ray report as of 10/05/2018, no active pulmonary disease. CURRENT MEDICATIONS: Include as follows: Tylenol 650 mg p.o. every 6 hours, aspirin 81 mg daily, Plavix 75 mg daily, Epogen 10,000 units three times a week, Monday, , Monday, metoprolol 25 mg p.o. daily, Zemplar 2 mcg three times a week, Renvela 800 mg p.o. t.i.d., and Nephro-Kike 1 tablet p.o. daily. ASSESSMENT AND PLAN: In summary, Mr. Britt is an 78-year-old elderly very pleasant [place] male with history of hypertension, congestive heart failure, coronary artery disease, end-stage renal disease, hyperlipidemia, status post pacemaker, was admitted after coming back from the vacation more than 30 days and unable to go back to his dialysis unit, and the patient was referred for continuation of hemodialysis for outpatient hemodialysis unit placement to the hospital. The patient is waiting for the outpatient hemodialysis acceptance. I called [facility] unit and the patient was accepted and the patient can start dialysis starting Monday this week that is on 10/13/2018 at 10:30 a.m. Discussed with the dialysis charge nurse from the [facility]. We will plan to schedule for the dialysis this afternoon and the patient can be discharged post dialysis if he is hemodynamically stable. Discussed with the patient and the patient's son also. 1. Hypertension. Blood pressure is stable. Continue metoprolol. 2. Coronary artery disease. Continue aspirin and Plavix. 3. Anemia secondary to renal failure, end-stage renal disease. Continue Epogen and Nephro-Kike. Follow up H and H. The patient is stable from the renal standpoint for discharge after dialysis today. Janet Foster MD
[2018-10-12] MEDS ORDERED: Epoetin Alfa 10,000 unit/ml Dialysis IV SCH (10:00)
== END 2018-10-11 18:19 | disposition home or self-care (01) | DRG 291 ==
LOC: C.ER 12:15 → C.9E 17:07 → C.3T 23:01
PROVIDERS: ADMIT Internal Medicine; ATTEND Internal Medicine
PROC: 5A1D70Z Performance of Urinary Filtration, Intermittent, Less than 6 Hours Per Day (ICD-10-PCS; principal; 2018-10-03)
DX: I13.2 Hypertensive heart and chronic kidney disease with heart failure and with stage 5 chronic kidney disease, or end stage renal disease (principal); N18.6 End stage renal disease; I50.32 Chronic diastolic (congestive) heart failure; I42.9 Cardiomyopathy, unspecified; D63.1 Anemia in chronic kidney disease; E11.22 Type 2 diabetes mellitus with diabetic chronic kidney disease; R50.9 Fever, unspecified; I25.10 Atherosclerotic heart disease of native coronary artery without angina pectoris; Z79.02 Long term (current) use of antithrombotics/antiplatelets; Z79.82 Long term (current) use of aspirin; Z99.2 Dependence on renal dialysis; Z95.0 Presence of cardiac pacemaker; Z86.73 Personal history of transient ischemic attack (TIA), and cerebral infarction without residual deficits; Z87.891 Personal history of nicotine dependence